=== PATIENT | male | born 1950 | race Caucasian/White ===

== ENCOUNTER 2016-09-16 10:12 | Outpatient (RCR) | payer MEDICARE ==
--- OUTSIDE RECORDS SUMMARY | 2016-07-22 11:28 | XMS REPORT | Continuity of Care Document ---
Author Author [facility] Organization [facility] Address Unknown Phone Unavailable Care Team Providers Care Chief Controller Station Name Role Phone Jennifer Muller PCP Unavailable Source Comments Some departments are not documenting in the electronic medical record. If you do not see the information that you expected, contact Release of Information in the Health Information Management department at [phone] for further assistance in locating additional records.[facility] Active Allergies and Adverse Reactions No Known Allergies Current Medications Prescription Sig. Disp. Refills Start End Date Status Date HYDROcodone/acetaminophen Take 1-2 Tabs by mouth 30 Tab 0 06/19/20 Active (NORCO) 5-325 mg tablet every 4 hours as needed 16 for Pain Indications: PAIN Earliest Fill Date: 06/19/16 hyoscyamine (ANASPAZ; Place 1 Tab under tongue 40 Tab 0 06/19/20 Active NULEV; SYMAX FASTABS; every 4 hours as needed. 16 HYOMAX-FT; ED-SPAZ; Bladder spasms OSCIMIN) 0.125 mg rapid dissolve tablet senna/docusate Take 1 Tab by mouth twice 30 Tab 0 06/19/20 Active (SENOKOT-S) 8.6/50 mg daily. Indications: 16 tablet CONSTIPATION ALPRAZolam (XANAX) 0.5 mg Take 1 Tab by mouth three 60 Tab 0 06/19/20 Active tablet times daily as needed for 16 Anxiety. Indications: ANXIETY polymyxin/bacitracin/kavon/ Small amount to head of 06/19/20 Active HC (CORTISPORIN) 1 % penis/catheter 3-4 times 16 topical ointment daily to reduce irritation. oxybutynin (DITROPAN) 5 Take 1 Tab by mouth three 30 Tab 0 09/02/20 Active mg tablet times daily as needed. 16 Bladder spasms cephalexin (KEFLEX) 500 Take 1 Cap by mouth four 28 Cap 0 06/19/20 06/26/20 mg capsule times daily for 7 days. 16 16 Active Problems Problem Noted Date Bladder cancer (HCC) 06/16/2016 Most Recent Encounters Date Type Specialty Providers Description 06/18/2016 Telephone Oncology Carmen Muller MD Navigation Follow Up 06/18/2016 Surgery General Surgery Carmen Muller MD CYSTOSCOPY WITH TRANSURETHRAL RESECTION LESION BLADDER, LEFT URETERAL STENT PLACEMENT 06/17/2016 [facility] Radiology Carmen Muller MD Encounter Sandra Browning RN Hamblet, Pranav Navarrete MD 06/17/2016 Anesthesia General Surgery Anthony Tabor SRNA Event 06/17/2016 Prep for Jovita Romano MD 06/16/2016 [facility] Radiology Carmen Muller MD Encounter 06/16/2016 [facility] Carmen Muller MD Bladder cancer (HCC) - Encounter 06/19/2016 06/16/2016 Surgery General Surgery Carmen Muller MD CYSTOSCOPY WITH TRANSURETHRAL RESECTION LESION BLADDER, RIGHT RETROGRADE PYELOGRAM 06/15/2016 Anesthesia General Surgery Richie Thomas DO Event 06/10/2016 [facility] Carmen Muller MD Malignant neoplasm of Encounter bladder, unspecified 06/10/2016 Office Visit Urology Carmen Muller MD 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) (Primary Dx) 06/10/2016 Prep for Carmen Grant MD 06/09/2016 Telephone Oncology Carmen Muller MD Navigation Assessment Social History Tobacco Use Types Packs/Day Years Used Date Current Some Day Smoker Cigars Smokeless Tobacco: Never Used Alcohol Use Drinks/Week oz/Week Comments Yes 18 Shots of 10.8 liquor Last Filed Vital Signs Vital Sign Reading Time Taken Blood Pressure 145/74 06/19/2016 12:03 PM CDT Pulse 80 06/19/2016 12:03 PM CDT Temperature 36.5 C (97.7 F) 06/19/2016 12:03 PM CDT Respiratory Rate - - Height 1.829 m (6') 06/16/2016 6:16 AM CDT Weight 90.1 kg (198 lb 10.2 oz) 06/16/2016 6:16 AM CDT Body Mass Index 26.93 06/16/2016 6:16 AM CDT Oxygen Saturation 99% 06/19/2016 12:03 PM CDT Plan of Care Health Maintenance Due Date Last Done Comments Hepatitis C Screening 1950 Physical (Comprehensive) 1955 Exam Pertussis Vaccine 1959 Tetanus Vaccine 1965 Colorectal Cancer 1998 Screening Shingles Vaccine 2008 Prevnar/Pneumovax (#1) 2013 Influenza Vaccine 06/18/2016 Procedures from Last 3 Months Procedure Name Priority Date/Time Associated Diagnosis Comments PROCEDURES-SCAN 06/25/2016 Results for this 7:36 AM CDT procedure are in the results section. CYSTOSCOPY WITH 06/18/2016 Bladder cancer (HCC) TRANSURETHRAL RESECTION 3:05 PM CDT LESION BLADDER, LEFT URETERAL STENT PLACEMENT CONSULT IV THERAPY TEAM Routine 06/17/2016 5:41 PM CDT CYSTOSCOPY WITH 06/16/2016 Bladder cancer (HCC) TRANSURETHRAL RESECTION 8:00 AM CDT LESION BLADDER, RIGHT RETROGRADE PYELOGRAM Results from Last 3 Months PROCEDURES-SCAN (06/25/2016 7:36 AM) Narrative Ordered by an unspecified provider. CBC (06/19/2016 2:55 AM)Only the most recent of 5 results within the time period is included. Component Value Range White Blood Cells 15.1 (H) 4.5-11.0 K/UL RBC 3.47 (L) 4.4-5.5 M/UL Hemoglobin 9.6 (L) 13.5-16.5 GM/DL Hematocrit 30.0 (L) 40-50 % MCV 86.3 80-100 FL MCH 27.6 26-34 PG MCHC 32.0 32.0-36.0 G/DL RDW 13.7 11-15 % Platelet Count 280 150-400 K/UL MPV 8.5 7-11 FL Specimen Blood BASIC METABOLIC PANEL (06/19/2016 2:55 AM)Only the most recent of 4 results within the time period is included. Component Value Range Sodium 141 137-147 MMOL/L Potassium 4.1 3.5-5.1 MMOL/L Chloride 113 (H) 98-110 MMOL/L CO2 21 21-30 MMOL/L Anion Gap 7 3-12 Glucose 142 (H) 70-100 MG/DL Blood Urea Nitrogen 17 7-25 MG/DL Creatinine 1.17 0.4-1.24 MG/DL Calcium 7.6 (L) 8.5-10.6 MG/DL eGFR Non >60Comment: >60 mL/min The eGFR is not validated for use in drug dosing adjustments. Continue to use estimated creatinine clearance per dosing reference text. Please contact the Clinical Pharmacist for questions. eGFR >60Comment: >60 mL/min The eGFR is not validated for use in drug dosing adjustments. Continue to use estimated creatinine clearance per dosing reference text. Please contact the Clinical Pharmacist for questions. Specimen Blood SURGICAL PATHOLOGY (06/18/2016 6:31 PM)Only the most recent of 2 results within the time period is included. Component Value Range PATHOLOGY REPORT [facility] [email or web address] Laci Fox MD, PhD, Director of Anatomic Pathology Department of Pathology and Laboratory Medicine [address] [place] [id number] Surgical Pathology Office: [phone] SURGICAL PATHOLOGY REPORT NAME: MT GRACE SURG PATH #: [id number] MR #: [id number] SPECIMEN CLASS: SR BILLING #: [id number] ALT ID #: LOCATION: DISCHARGED DATE OF PROCEDURE: 06/18/2016 AGE: 66 SEX: M DATE RECEIVED: 06/19/2016 : 1950 TIME RECEIVED: 07:56 PHYSICIAN: CARMEN MULLER MD DATE OF REPORT: 06/23/2016 COPY TO: DATE OF PRINTIN06/23/2016 ################################################## ###################### Final Diagnosis: A. 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 See comment Comment: URINARY BLADDER: Biopsy and Transurethral Resection of Bladder Tumor (TURBT) Procedure (required only for TURBT) TURBT Tumor Type Invasive carcinoma Histologic Type Urothelial (transitional cell) carcinoma with focal squamous differentiation Associated Epithelial Lesions None identified Histologic Grade Urothelial carcinoma High-grade Tumor Configuration Papillary Adequacy of Material for Determining Muscularis Propria Invasion Muscularis propria (detrusor muscle) present Lymph-Vascular Invasion Not identified Microscopic Tumor Extension Tumor invades muscularis propria (detrusor muscle) Additional Pathologic Findings Necrosis Therapy-related changes Cautery artifact Pathologic Staging (pTNM) r(recurrent) pT2, Nx, M-na TNM Descriptors r (recurrent) Primary Tumor (pT) pT2: Tumor invades muscularis propria The pathologic stage assigned here should be regarded as provisional, as it reflects only current pathologic data and does not incorporate full knowledge of the patient's clinical status and/or prior pathology. Attestation: By this signature, I attest that I have personally formulated the final interpretation expressed in this report and that the above diagnosis is based upon my examination of the slides and/or other material indicated in this report. +++Electronically Signed Out By+++ ks06/19/2016 Interpreted by: Ralf Reddy MD, Attending Physician Fei Stubbs M.D. Resident 06/23/2016 ################################################## ###################### Material Received: A: Bladder, transurethral resection History: 66-year-old male with a clinical history of bladder cancer. Gross Description: A. Fixative: Formalin Labeled: "Bladder tumor" Weight: 125 grams Dimensions: 11.2 x 10.3 x 4.4 cm Cassettes [ ]- [Entire specimen, Bottle Selector sections of specimen] (dlk) ks06/19/2016 Fei Stubbs M.D. Resident IR CENTRAL VENOUS CATHETER (06/17/2016 11:36 AM) Impressions IMPRESSION:Successful image guided placement of a right internal jugular vein chest port as described above. Pranav Chang M.D, the attending radiologist, was present for the critic al and castaneda portions of the procedure with a midlevel, resident, and/or fellow participating.Overlapping portions were non castaneda and I was immediately available.I interpret the critical and castaneda portion of this procedure to have been needle access. @TT Approved by Bill Anne M.D. on 06/17/2016 3:25 PM By my electronic signature, I attest that I have personally reviewed the images for this examination and formulated the interpretations and opinions expressed in this report Finalized by Pranav Still M.D. on 06/17/2016 3:31 PM. Dictated by Bill Anne M.D. on 06/17/2016 2:21 PM. Narrative CHEST PORT PLACEMENT WITH ULTRASOUND AND FLUORO GUIDANCE DATE: 06/17/2016 CLINICAL INDICATION: 58-year-old male with diagnosis of bladder cancer presents for placement of a chest port SEARCH ENGINE MARKETING SPECIALIST:Rafael Still MD, Bill Anne MD CATHETER: 8 Kyrgyz single lumen power port PUNCTURE SITE: Right internal jugular vein TECHNIQUE: The risks, benefits, and alternatives to the procedure and sedation were explained, and written informed consent obtained. With patient in the supine position, the patient's right neck and upper chest were prepped and draped in the usual sterile fashion. Ultrasound of the right internal jugular vein was performed demonstrating patency.The skin and subcutaneous tissues overlying the vein were infiltrated with 2% Lidocaine without epinephrine. Under ultrasound guidance, the right internal jugular vein was accessed with a micropuncture needle. Needle entering the vessel was documented and an ultrasound imaged was saved and sent to PACS.A 0.018 wire was advanced through the needle into the vein. The needle was exchanged for a 5 Kyrgyz coaxial dilator. Attention was turned to the creation of a subcutaneous pocket and tunnel.2% Lidocaine with epinephrine were infiltrated on the chest wall along a tract caudal and lateral to the initial venotomy site.An incision was made and a pocket was bluntly dissected. The pocket was copiously irrigated with sterile normal saline.The tunneling tool was passed and the catheter was pulled through the initial venotomy site. The catheter was cut to length and attached to the port reservoir. The introducer of the coaxial catheter was removed and a 0.035" Amplatz wire was passed into the IVC. The micropuncture sheath was exchanged for a peel a way. The catheter was advanced through the sheath and positioned centrally using fluoroscopy.The sheath was removed. The venotomy site was closed withDermabond.The pocket was closed with three interrupted deep sutures with 2-0 Vicryl followed by Dermabond. The patient tolerated the procedure well and remained in stable condition throughout the stay in the angiography suite.The catheter port was flushed, heparinized, and a sterile dressing was applied. FINDINGS: 1. Patent right internal jugular vein by ultrasound.Needle entry documented , and an ultrasound image was saved to PACS. 2. Catheter tip is appropriately placed in the proximal right atrium. Procedure Note Interface, Radiant Results - WedJun 17, 2016 3:34 PM CDT CHEST PORT PLACEMENT WITH ULTRASOUND AND FLUORO GUIDANCE DATE: 06/17/2016 CLINICAL INDICATION: 58-year-old male with diagnosis of bladder cancer presents for placement of a chest port SEARCH ENGINE MARKETING SPECIALIST: Rafael Still MD, Bill Anne MD CATHETER: 8 Kyrgyz single lumen power port PUNCTURE SITE: Right internal jugular vein TECHNIQUE: The risks, benefits, and alternatives to the procedure and sedation were explained, and written informed consent obtained. With patient in the supine position, the patient's right neck and upper chest were prepped and draped in the usual sterile fashion. Ultrasound of the right internal jugular vein was performed demonstrating patency. The skin and subcutaneous tissues overlying the vein were infiltrated with 2% Lidocaine without epinephrine. Under ultrasound guidance, the right internal jugular vein was accessed with a micropuncture needle. Needle entering the vessel was documented and an ultrasound imaged was saved and sent to PACS. A 0.018 wire was advanced through the needle into the vein. The needle was exchanged for a 5 Kyrgyz coaxial dilator. Attention was turned to the creation of a subcutaneous pocket and tunnel. 2% Lidocaine with epinephrine were infiltrated on the chest wall along a tract caudal and lateral to the initial venotomy site. An incision was made and a pocket was bluntly dissected. The pocket was copiously irrigated with sterile normal saline. The tunneling tool was passed and the catheter was pulled through the initial venotomy site. The catheter was cut to length and attached to the port reservoir. The introducer of the coaxial catheter was removed and a 0.035" Amplatz wire was passed into the IVC. The micropuncture sheath was exchanged for a peel a way. The catheter was advanced through the sheath and positioned centrally using fluoroscopy. The sheath was removed. The venotomy site was closed with Dermabond. The pocket was closed with three interrupted deep sutures with 2-0 Vicryl followed by Dermabond. The patient tolerated the procedure well and remained in stable condition throughout the stay in the angiography suite. The catheter port was flushed, heparinized, and a sterile dressing was applied. FINDINGS: 1. Patent right internal jugular vein by ultrasound. Needle entry documented, and an ultrasound image was saved to PACS. 2. Catheter tip is appropriately placed in the proximal right atrium. IMPRESSION IMPRESSION: Successful image guided placement of a right internal jugular vein chest port as described above. Pranav Chang M.D, the attending radiologist, was present for the critical and castaneda portions of the procedure with a midlevel, resident, and/or fellow participating. Overlapping portions were non castaneda and I was immediately available. I interpret the critical and castaneda portion of this procedure to have been needle access. @TT Approved by Bill Anne M.D. on 06/17/2016 3:25 PM By my electronic signature, I attest that I have personally reviewed the images for this examination and formulated the interpretations and opinions expressed in this report Finalized by Pranav Still M.D. on 06/17/2016 3:31 PM. Dictated by Bill Anne M.D. on 06/17/2016 2:21 PM. IR ASPIRATION/DRAIN (06/17/2016 11:36 AM) Impressions 1.Successful placement of left percutaneous nephrostomy tube. Pranav Chang M.D, the attending radiologist, was present for the critical and castaneda portions of the procedure with a midlevel, resident, and/or fellow participating.Overlapping portions were non castaneda and I was immediately available.I interpret the critical and castaneda portion of this procedure to have been needle access. @TT Approved by Bill Anne M.D. on 06/17/2016 2:20 PM By my electronic signature, I attest that I have personally reviewed the images for this examination and formulated the interpretations and opinions expressed in this report Finalized by Pranav Still M.D. on 06/17/2016 2:34 PM. Dictated by Bill Anne M.D. on 06/17/2016 2:16 PM. Narrative 1. Percutaneous Nephrostomy Tube Placement Under Ultrasound and Fluoroscopic Guidance 2. Antegrade Nephrostogram INDICATION:58-year-old male with a history of bladder cancer and left urinary obstruction presents for placement of a left percutaneous nephrostomy DATE OF PROCEDURE:06/17/2016 OPERATING PHYSICIAN:Rafael Still MD, Bill Anne MD MEDICATIONS: Versed 5 mg IV, Fentanyl 50 mcg IV CATHETER: 8 Kyrgyz Nephrostomy Tube FLUOROSCOPY DOSE:22 mGy TECHNIQUE: The risks benefits and alternatives of the procedure as well as conscious sedation were discussed. After obtaining informed consent the patient was prepped and draped in the usual sterile fashion. 2% lidocaine was used as local anesthetic. Under ultrasound guidance, on the left a 22 gauge Chiba needle was introduced into a posterior, lower pole calyx.Urine was aspirated and a small amount of contrast was injected.An 0.018" wire was then passed through the needle into the renal pelvis. The needle was then removed and a 6 Kyrgyz coaxial dilator was placed over the wire. Subsequently, the wire and inner dilator were removed and an 0.035"wire was placed through the dilator. Next, an 8 Kyrgyz percutaneous nephrostomy tube was placed with the cope loop formed within the renal pelvis. The nephrostomy tube was then anchored to the skin utilizing 2-0 Ethilon. Antegrade nephrostogram then performed. The patient tolerated the procedure well and left the angiography suite in stable condition without any immediate postprocedural complications. FINDINGS: 1. There is moderate left-sided hydronephrosis and hydroureter to the level of the distal ureter. There was complete obstruction of the distal ureter. No passage of contrast into the bladder was visualized during the procedure. 2. The left-sided percutaneous nephrostomy tube was placed with the [place] loop formed in the renal pelvis. Procedure Note Interface, Radiant Results - WedJun 17, 2016 2:37 PM CDT 1. Percutaneous Nephrostomy Tube Placement Under Ultrasound and Fluoroscopic Guidance 2. Antegrade Nephrostogram INDICATION: 58-year-old male with a history of bladder cancer and left urinary obstruction presents for placement of a left percutaneous nephrostomy DATE OF PROCEDURE: 06/17/2016 OPERATING PHYSICIAN: Rafael Still MD, Bill Anne MD MEDICATIONS: Versed 5 mg IV, Fentanyl 50 mcg IV CATHETER: 8 Kyrgyz Nephrostomy Tube FLUOROSCOPY DOSE: 22 mGy TECHNIQUE: The risks benefits and alternatives of the procedure as well as conscious sedation were discussed. After obtaining informed consent the patient was prepped and draped in the usual sterile fashion. 2% lidocaine was used as local anesthetic. Under ultrasound guidance, on the left a 22 gauge Chiba needle was introduced into a posterior, lower pole calyx. Urine was aspirated and a small amount of contrast was injected. An 0.018" wire was then passed through the needle into the renal pelvis. The needle was then removed and a 6 Kyrgyz coaxial dilator was placed over the wire. Subsequently, the wire and inner dilator were removed and an 0.035" wire was placed through the dilator. Next, an 8 Kyrgyz percutaneous nephrostomy tube was placed with the cope loop formed within the renal pelvis. The nephrostomy tube was then anchored to the skin utilizing 2-0 Ethilon. Antegrade nephrostogram then performed. The patient tolerated the procedure well and left the angiography suite in stable condition without any immediate postprocedural complications. FINDINGS: 1. There is moderate left-sided hydronephrosis and hydroureter to the level of the distal ureter. There was complete obstruction of the distal ureter. No passage of contrast into the bladder was visualized during the procedure. 2. The left-sided percutaneous nephrostomy tube was placed with the [place] loop formed in the renal pelvis. IMPRESSION 1. Successful placement of left percutaneous nephrostomy tube. I, Pranav Still M.D, the attending radiologist, was present for the critical and castaneda portions of the procedure with a midlevel, resident, and/or fellow participating. Overlapping portions were non castaneda and I was immediately available. I interpret the critical and castaneda portion of this procedure to have been needle access. @TT Approved by Bill Anne M.D. on 06/17/2016 2:20 PM By my electronic signature, I attest that I have personally reviewed the images for this examination and formulated the interpretations and opinions expressed in this report Finalized by Pranav Still M.D. on 06/17/2016 2:34 PM. Dictated by Bill Anne M.D. on 06/17/2016 2:[address] ABD/PELV W CONTRAST (06/16/2016 3:42 PM) Impressions CHEST: 1. Prominent right hilar lymph node concerning for early suma metastatic disease. 2. Tiny subcentimeter left upper lobe pulmonary nodule. Continued attention on follow-up examinations recommended. 3. Trace bilateral pleural effusions with associated atelectasis. ABDOMEN AND PELVIS: 1. Large infiltrating urinary bladder mass consistent with reported history of bladder cancer. 2. Extensive retroperitoneal and pelvic lymphadenopathy as above, consistent with metastatic lymphadenopathy. 3. Left hydronephrosis secondary to distal obstruction from large bladder tumor. Approved by Johnny George M.D. on 06/16/2016 4:43 PM By my electronic signature, I attest that I have personally reviewed the images for this examination and formulated the interpretations and opinions expressed in this report Finalized by Alec Hooper M.D. on 06/16/2016 4:53 PM. Dictated by Johnny George M.D. on 06/16/2016 4:[address] CHEST, ABDOMEN AND PELVIS Clinical Indication:Male, 66 years old. Malignant neoplasm bladder, bladder cancer Technique: Multiple contiguous axial images were obtained through the chest, abdomen and pelvis following the administration of IV contrast material. Post processing coronal and sagittal reconstruction images were made from the axial images. IV contrast: Isovue 370. Bowel contrast:None Comparison: CT abdomen/pelvis 06/03/2016. CHEST FINDINGS: Axilla, Mediastinum and Gloria: Prominent right hilar lymph node measuring 1.1 cm in short axis (series 2, image 27). No axillary or mediastinal adenopathy. Small hiatal hernia. Heart and Great Vessels: Unremarkable. Airway, Lungs and Pleura: Mild bilateral atelectasis with trace bilateral pleural effusions. No pneumothorax. There is a tiny 2 mm left upper lobe pulmonary nodule (series 2, image 29). Chest Wall and Osseous Structures: No destructive osseous lesion. ABDOMEN AND PELVIS FINDINGS: Liver and Biliary system: Liver is normal in size without focal lesion. Portal venous system is patent. No calcified gallstones. Spleen: Unremarkable. Adrenal Glands and Kidneys: There is mild left hydronephrosis with bilateral perinephric fat stranding. Multiple bilateral simple appearing renal cysts. Adrenal glands are unremarkable. Pancreas and Retroperitoneum: Pancreas is unremarkable. There is multiple retroperitoneal enlarged lymph nodes, risk control field representative aortocaval node measures 2.3 x 1.5 cm (2, image 101). Bottle Selector left iliac node measures 2.9 x 1.9 cm (series 2, image 121). Aorta and Major Vessels: Abdominal aorta is normal caliber with moderate mixed plaque formation extending to the bilateral iliac arteries. Bowel, Mesentery and Peritoneal space: Small and large are normal in caliber without evidence of obstruction. Appendix is unremarkable. No discrete mesenteric lymphadenopathy. Mild abdominopelvic ascites. Pelvis: There is a large irregular polypoid mass within the urinary bladder which is ill-defined, though demonstrates bladder wall infiltration. The mass measures approximately 4.7 x 5.6 cm (series 4, image 75). There is an indwelling urinary catheter with scattered intravesicular high attenuation which may represent superimposed blood products. There is marked pelvic lymphadenopathy, risk control field representative left obturator node measures 2.6 x 3.1 cm ( series 2, image 134). Abdominal wall and Osseous Structures: Bilateral fat-containing inguinal hernias. Multiple scattered osseous sclerotic foci, likely representing enostosis. Procedure Note Interface, Radiant Results - Tue Jun 16, 2016 4:[address] CHEST, ABDOMEN AND PELVIS Clinical Indication: Male, 66 years old. Malignant neoplasm bladder, bladder cancer Technique: Multiple contiguous axial images were obtained through the chest, abdomen and pelvis following the administration of IV contrast material. Post processing coronal and sagittal reconstruction images were made from the axial images. IV contrast: Isovue 370. Bowel contrast: None Comparison: CT abdomen/pelvis 06/03/2016. CHEST FINDINGS: Axilla, Mediastinum and Gloria: Prominent right hilar lymph node measuring 1.1 cm in short axis (series 2, image 27). No axillary or mediastinal adenopathy. Small hiatal hernia. Heart and Great Vessels: Unremarkable. Airway, Lungs and Pleura: Mild bilateral atelectasis with trace bilateral pleural effusions. No pneumothorax. There is a tiny 2 mm left upper lobe pulmonary nodule (series 2, image 29). Chest Wall and Osseous Structures: No destructive osseous lesion. ABDOMEN AND PELVIS FINDINGS: Liver and Biliary system: Liver is normal in size without focal lesion. Portal venous system is patent. No calcified gallstones. Spleen: Unremarkable. Adrenal Glands and Kidneys: There is mild left hydronephrosis with bilateral perinephric fat stranding. Multiple bilateral simple appearing renal cysts. Adrenal glands are unremarkable. Pancreas and Retroperitoneum: Pancreas is unremarkable. There is multiple retroperitoneal enlarged lymph nodes, risk control field representative aortocaval node measures 2.3 x 1.5 cm (2, image 101). Bottle Selector left iliac node measures 2.9 x 1.9 cm (series 2, image 121). Aorta and Major Vessels: Abdominal aorta is normal caliber with moderate mixed plaque formation extending to the bilateral iliac arteries. Bowel, Mesentery and Peritoneal space: Small and large are normal in caliber without evidence of obstruction. Appendix is unremarkable. No discrete mesenteric lymphadenopathy. Mild abdominopelvic ascites. Pelvis: There is a large irregular polypoid mass within the urinary bladder which is ill-defined, though demonstrates bladder wall infiltration. The mass measures approximately 4.7 x 5.6 cm (series 4, image 75). There is an indwelling urinary catheter with scattered intravesicular high attenuation which may represent superimposed blood products. There is marked pelvic lymphadenopathy, risk control field representative left obturator node measures 2.6 x 3.1 cm ( series 2, image 134). Abdominal wall and Osseous Structures: Bilateral fat-containing inguinal hernias. Multiple scattered osseous sclerotic foci, likely representing enostosis. IMPRESSION CHEST: 1. Prominent right hilar lymph node concerning for early suma metastatic disease. 2. Tiny subcentimeter left upper lobe pulmonary nodule. Continued attention on follow-up examinations recommended. 3. Trace bilateral pleural effusions with associated atelectasis. ABDOMEN AND PELVIS: 1. Large infiltrating urinary bladder mass consistent with reported history of bladder cancer. 2. Extensive retroperitoneal and pelvic lymphadenopathy as above, consistent with metastatic lymphadenopathy. 3. Left hydronephrosis secondary to distal obstruction from large bladder tumor. Approved by Johnny George M.D. on 06/16/2016 4:43 PM By my electronic signature, I attest that I have personally reviewed the images for this examination and formulated the interpretations and opinions expressed in this report Finalized by Alec Hooper M.D. on 06/16/2016 4:53 PM. Dictated by Johnny George M.D. on 06/16/2016 4:[address] CHEST W CONTRAST (06/16/2016 3:42 PM) Impressions CHEST: 1. Prominent right hilar lymph node concerning for early suma metastatic disease. 2. Tiny subcentimeter left upper lobe pulmonary nodule. Continued attention on follow-up examinations recommended. 3. Trace bilateral pleural effusions with associated atelectasis. ABDOMEN AND PELVIS: 1. Large infiltrating urinary bladder mass consistent with reported history of bladder cancer. 2. Extensive retroperitoneal and pelvic lymphadenopathy as above, consistent with metastatic lymphadenopathy. 3. Left hydronephrosis secondary to distal obstruction from large bladder tumor. Approved by Johnny George M.D. on 06/16/2016 4:43 PM By my electronic signature, I attest that I have personally reviewed the images for this examination and formulated the interpretations and opinions expressed in this report Finalized by Alec Hooper M.D. on 06/16/2016 4:53 PM. Dictated by Johnny George M.D. on 06/16/2016 4:[address] CHEST, ABDOMEN AND PELVIS Clinical Indication:Male, 66 years old. Malignant neoplasm bladder, bladder cancer Technique: Multiple contiguous axial images were obtained through the chest, abdomen and pelvis following the administration of IV contrast material. Post processing coronal and sagittal reconstruction images were made from the axial images. IV contrast: Isovue 370. Bowel contrast:None Comparison: CT abdomen/pelvis 06/03/2016. CHEST FINDINGS: Axilla, Mediastinum and Gloria: Prominent right hilar lymph node measuring 1.1 cm in short axis (series 2, image 27). No axillary or mediastinal adenopathy. Small hiatal hernia. Heart and Great Vessels: Unremarkable. Airway, Lungs and Pleura: Mild bilateral atelectasis with trace bilateral pleural effusions. No pneumothorax. There is a tiny 2 mm left upper lobe pulmonary nodule (series 2, image 29). Chest Wall and Osseous Structures: No destructive osseous lesion. ABDOMEN AND PELVIS FINDINGS: Liver and Biliary system: Liver is normal in size without focal lesion. Portal venous system is patent. No calcified gallstones. Spleen: Unremarkable. Adrenal Glands and Kidneys: There is mild left hydronephrosis with bilateral perinephric fat stranding. Multiple bilateral simple appearing renal cysts. Adrenal glands are unremarkable. Pancreas and Retroperitoneum: Pancreas is unremarkable. There is multiple retroperitoneal enlarged lymph nodes, risk control field representative aortocaval node measures 2.3 x 1.5 cm (2, image 101). Bottle Selector left iliac node measures 2.9 x 1.9 cm (series 2, image 121). Aorta and Major Vessels: Abdominal aorta is normal caliber with moderate mixed plaque formation extending to the bilateral iliac arteries. Bowel, Mesentery and Peritoneal space: Small and large are normal in caliber without evidence of obstruction. Appendix is unremarkable. No discrete mesenteric lymphadenopathy. Mild abdominopelvic ascites. Pelvis: There is a large irregular polypoid mass within the urinary bladder which is ill-defined, though demonstrates bladder wall infiltration. The mass measures approximately 4.7 x 5.6 cm (series 4, image 75). There is an indwelling urinary catheter with scattered intravesicular high attenuation which may represent superimposed blood products. There is marked pelvic lymphadenopathy, risk control field representative left obturator node measures 2.6 x 3.1 cm ( series 2, image 134). Abdominal wall and Osseous Structures: Bilateral fat-containing inguinal hernias. Multiple scattered osseous sclerotic foci, likely representing enostosis. Procedure Note Interface, Radiant Results - Tue Jun 16, 2016 4:[address] CHEST, ABDOMEN AND PELVIS Clinical Indication: Male, 66 years old. Malignant neoplasm bladder, bladder cancer Technique: Multiple contiguous axial images were obtained through the chest, abdomen and pelvis following the administration of IV contrast material. Post processing coronal and sagittal reconstruction images were made from the axial images. IV contrast: Isovue 370. Bowel contrast: None Comparison: CT abdomen/pelvis 06/03/2016. CHEST FINDINGS: Axilla, Mediastinum and Gloria: Prominent right hilar lymph node measuring 1.1 cm in short axis (series 2, image 27). No axillary or mediastinal adenopathy. Small hiatal hernia. Heart and Great Vessels: Unremarkable. Airway, Lungs and Pleura: Mild bilateral atelectasis with trace bilateral pleural effusions. No pneumothorax. There is a tiny 2 mm left upper lobe pulmonary nodule (series 2, image 29). Chest Wall and Osseous Structures: No destructive osseous lesion. ABDOMEN AND PELVIS FINDINGS: Liver and Biliary system: Liver is normal in size without focal lesion. Portal venous system is patent. No calcified gallstones. Spleen: Unremarkable. Adrenal Glands and Kidneys: There is mild left hydronephrosis with bilateral perinephric fat stranding. Multiple bilateral simple appearing renal cysts. Adrenal glands are unremarkable. Pancreas and Retroperitoneum: Pancreas is unremarkable. There is multiple retroperitoneal enlarged lymph nodes, risk control field representative aortocaval node measures 2.3 x 1.5 cm (2, image 101). Bottle Selector left iliac node measures 2.9 x 1.9 cm (series 2, image 121). Aorta and Major Vessels: Abdominal aorta is normal caliber with moderate mixed plaque formation extending to the bilateral iliac arteries. Bowel, Mesentery and Peritoneal space: Small and large are normal in caliber without evidence of obstruction. Appendix is unremarkable. No discrete mesenteric lymphadenopathy. Mild abdominopelvic ascites. Pelvis: There is a large irregular polypoid mass within the urinary bladder which is ill-defined, though demonstrates bladder wall infiltration. The mass measures approximately 4.7 x 5.6 cm (series 4, image 75). There is an indwelling urinary catheter with scattered intravesicular high attenuation which may represent superimposed blood products. There is marked pelvic lymphadenopathy, risk control field representative left obturator node measures 2.6 x 3.1 cm ( series 2, image 134). Abdominal wall and Osseous Structures: Bilateral fat-containing inguinal hernias. Multiple scattered osseous sclerotic foci, likely representing enostosis. IMPRESSION CHEST: 1. Prominent right hilar lymph node concerning for early suma metastatic disease. 2. Tiny subcentimeter left upper lobe pulmonary nodule. Continued attention on follow-up examinations recommended. 3. Trace bilateral pleural effusions with associated atelectasis. ABDOMEN AND PELVIS: 1. Large infiltrating urinary bladder mass consistent with reported history of bladder cancer. 2. Extensive retroperitoneal and pelvic lymphadenopathy as above, consistent with metastatic lymphadenopathy. 3. Left hydronephrosis secondary to distal obstruction from large bladder tumor. Approved by Johnny George M.D. on 06/16/2016 4:43 PM By my electronic signature, I attest that I have personally reviewed the images for this examination and formulated the interpretations and opinions expressed in this report Finalized by Alec Hooper M.D. on 06/16/2016 4:53 PM. Dictated by Johnny George M.D. on 06/16/2016 4:23 PM. COMPREHENSIVE METABOLIC PANEL (06/10/2016 4:55 PM) Component Value Range Sodium 140 137-147 MMOL/L Potassium 3.7 3.5-5.1 MMOL/L Chloride 106 98-110 MMOL/L Glucose 103 (H) 70-100 MG/DL Blood Urea Nitrogen 20 7-25 MG/DL Creatinine 1.71 (H) 0.4-1.24 MG/DL Calcium 8.7 8.5-10.6 MG/DL Total Protein 6.9 6.0-8.0 G/DL Total Bilirubin 0.2 (L) 0.3-1.2 MG/DL Albumin 3.4 (L) 3.5-5.0 G/DL Alk Phosphatase 61 25-110 U/L AST (SGOT) 21 7-40 U/L CO2 26 21-30 MMOL/L ALT (SGPT) 18 7-56 U/L Anion Gap 8 3-12 eGFR Non 40 (L)Comment: >60 mL/min The eGFR is not validated for use in drug dosing adjustments. Continue to use estimated creatinine clearance per dosing reference text. Please contact the Clinical Pharmacist for questions. eGFR 48 (L)Comment: >60 mL/min The eGFR is not validated for use in drug dosing adjustments. Continue to use estimated creatinine clearance per dosing reference text. Please contact the Clinical Pharmacist for questions. Specimen Blood
[2016-07-22 12:15] LABS: BASOPHILS % (AUTO) 0 % (0-10); EOSINOPHILS % (AUTO) 0 % (0-10); LYMPHOCYTES # (AUTO) 1.7 X 10^3 (1.0-4.0); LYMPHOCYTES % (AUTO) 23 % (12-44); MEAN CORPUSCULAR HEMOGLOBIN 28 PG (25-34); MEAN CORPUSCULAR HGB CONC 33 G/DL (32-36); MEAN CORPUSCULAR VOLUME 86 FL (80-99); MEAN PLATELET VOLUME 8.2 FL (7.4-10.4); MONOCYTES # (AUTO) 1.3 X 10^3 (0.0-1.0); MONOCYTES % (AUTO) 18 % (0-12); NEUTROPHILS # (AUTO) 4.4 X 10^3 (1.8-7.8); NEUTROPHILS % (AUTO) 59 % (42-75); PLATELET COUNT 329 10^3/uL (130-400); RED BLOOD COUNT 3.45 10^6/uL (4.35-5.85); RED CELL DISTRIBUTION WIDTH 13.6 % (10.0-14.5); WHITE BLOOD COUNT 7.5 10^3/uL (4.3-11.0)
[2016-07-22 12:44] LABS: CALCIUM 9.3 MG/DL (8.5-10.1); CREATININE SERUM 1.46 MG/DL (0.60-1.30); POTASSIUM 4.6 MMOL/L (3.6-5.0)
[2016-07-29 10:06] LABS: BASOPHILS # (AUTO) 0.1 10^3/uL (0.0-0.1); BASOPHILS % (AUTO) 1 % (0-10); EOSINOPHILS # (AUTO) 0.2 10^3/uL (0.0-0.3); EOSINOPHILS % (AUTO) 2 % (0-10); LYMPHOCYTES % (AUTO) 16 % (12-44); MEAN CORPUSCULAR HEMOGLOBIN 28 PG (25-34); MEAN CORPUSCULAR HGB CONC 32 G/DL (32-36); MEAN CORPUSCULAR VOLUME 87 FL (80-99); MEAN PLATELET VOLUME 8.7 FL (7.4-10.4); MONOCYTES % (AUTO) 16 % (0-12); NEUTROPHILS # (AUTO) 8.1 X 10^3 (1.8-7.8); NEUTROPHILS % (AUTO) 66 % (42-75); PLATELET COUNT 766 10^3/uL (130-400); RED BLOOD COUNT 2.99 10^6/uL (4.35-5.85); RED CELL DISTRIBUTION WIDTH 13.9 % (10.0-14.5); WHITE BLOOD COUNT 12.3 10^3/uL (4.3-11.0)
[2016-07-29 10:23] LABS: ALBUMIN 3.2 G/DL (3.2-4.5); BILIRUBIN,TOTAL 0.2 MG/DL (0.1-1.0); CALCIUM 8.8 MG/DL (8.5-10.1); CREATININE SERUM 1.4 MG/DL (0.60-1.30); MAGNESIUM 2.1 MG/DL (1.8-2.4); POTASSIUM 4.1 MMOL/L (3.6-5.0); TOTAL PROTEIN 6.6 G/DL (6.4-8.2)
[2016-08-05 13:40] LABS: BASOPHILS % (AUTO) 0 % (0-10); EOSINOPHILS # (AUTO) 0.1 10^3/uL (0.0-0.3); EOSINOPHILS % (AUTO) 1 % (0-10); LYMPHOCYTES # (AUTO) 2.2 X 10^3 (1.0-4.0); LYMPHOCYTES % (AUTO) 20 % (12-44); MEAN CORPUSCULAR HEMOGLOBIN 28 PG (25-34); MEAN CORPUSCULAR HGB CONC 33 G/DL (32-36); MEAN CORPUSCULAR VOLUME 86 FL (80-99); MEAN PLATELET VOLUME 8.2 FL (7.4-10.4); MONOCYTES # (AUTO) 1.6 X 10^3 (0.0-1.0); MONOCYTES % (AUTO) 15 % (0-12); NEUTROPHILS # (AUTO) 7.1 X 10^3 (1.8-7.8); NEUTROPHILS % (AUTO) 65 % (42-75); PLATELET COUNT 384 10^3/uL (130-400); RED BLOOD COUNT 2.89 10^6/uL (4.35-5.85); RED CELL DISTRIBUTION WIDTH 14.2 % (10.0-14.5)
[2016-08-05 14:13] LABS: CREATININE SERUM 1.47 MG/DL (0.60-1.30); POTASSIUM 4.1 MMOL/L (3.6-5.0)
[2016-08-12 13:25] LABS: BASOPHILS % (AUTO) 0 % (0-10); EOSINOPHILS # (AUTO) 0.1 10^3/uL (0.0-0.3); EOSINOPHILS % (AUTO) 1 % (0-10); LYMPHOCYTES # (AUTO) 2.3 X 10^3 (1.0-4.0); LYMPHOCYTES % (AUTO) 32 % (12-44); MEAN CORPUSCULAR HEMOGLOBIN 28 PG (25-34); MEAN CORPUSCULAR HGB CONC 33 G/DL (32-36); MEAN CORPUSCULAR VOLUME 85 FL (80-99); MEAN PLATELET VOLUME 8.4 FL (7.4-10.4); MONOCYTES # (AUTO) 0.8 X 10^3 (0.0-1.0); MONOCYTES % (AUTO) 11 % (0-12); NEUTROPHILS # (AUTO) 3.9 X 10^3 (1.8-7.8); NEUTROPHILS % (AUTO) 56 % (42-75); PLATELET COUNT 151 10^3/uL (130-400); RED BLOOD COUNT 2.72 10^6/uL (4.35-5.85); RED CELL DISTRIBUTION WIDTH 14.3 % (10.0-14.5); WHITE BLOOD COUNT 6.9 10^3/uL (4.3-11.0)
[2016-08-12 13:50] LABS: CALCIUM 8.7 MG/DL (8.5-10.1); CREATININE SERUM 1.34 MG/DL (0.60-1.30); POTASSIUM 3.7 MMOL/L (3.6-5.0)
[2016-08-19 11:13] LABS: BASOPHILS % (AUTO) 0 % (0-10); EOSINOPHILS # (AUTO) 0.1 10^3/uL (0.0-0.3); EOSINOPHILS % (AUTO) 1 % (0-10); LYMPHOCYTES % (AUTO) 23 % (12-44); MEAN CORPUSCULAR HEMOGLOBIN 28 PG (25-34); MEAN CORPUSCULAR HGB CONC 32 G/DL (32-36); MEAN CORPUSCULAR VOLUME 87 FL (80-99); MONOCYTES # (AUTO) 1.2 X 10^3 (0.0-1.0); MONOCYTES % (AUTO) 14 % (0-12); NEUTROPHILS # (AUTO) 5.3 X 10^3 (1.8-7.8); NEUTROPHILS % (AUTO) 61 % (42-75); PLATELET COUNT 210 10^3/uL (130-400); RED BLOOD COUNT 2.84 10^6/uL (4.35-5.85); RED CELL DISTRIBUTION WIDTH 15.7 % (10.0-14.5); WHITE BLOOD COUNT 8.6 10^3/uL (4.3-11.0)
[2016-08-19 11:58] LABS: CALCIUM 8.7 MG/DL (8.5-10.1); CREATININE SERUM 1.43 MG/DL (0.60-1.30); POTASSIUM 4.6 MMOL/L (3.6-5.0)
[2016-08-26 13:23] LABS: BASOPHILS % (AUTO) 0 % (0-10); EOSINOPHILS # (AUTO) 0.3 10^3/uL (0.0-0.3); EOSINOPHILS % (AUTO) 3 % (0-10); LYMPHOCYTES # (AUTO) 2.3 X 10^3 (1.0-4.0); LYMPHOCYTES % (AUTO) 20 % (12-44); MEAN CORPUSCULAR HEMOGLOBIN 28 PG (25-34); MEAN CORPUSCULAR HGB CONC 32 G/DL (32-36); MEAN CORPUSCULAR VOLUME 89 FL (80-99); MEAN PLATELET VOLUME 8.9 FL (7.4-10.4); MONOCYTES % (AUTO) 18 % (0-12); NEUTROPHILS # (AUTO) 6.5 X 10^3 (1.8-7.8); NEUTROPHILS % (AUTO) 58 % (42-75); PLATELET COUNT 598 10^3/uL (130-400); RED BLOOD COUNT 2.63 10^6/uL (4.35-5.85); RED CELL DISTRIBUTION WIDTH 18.2 % (10.0-14.5); WHITE BLOOD COUNT 11.1 10^3/uL (4.3-11.0)
[2016-08-26 13:50] LABS: ALBUMIN 3.3 G/DL (3.2-4.5); BILIRUBIN,TOTAL 0.2 MG/DL (0.1-1.0); CALCIUM 8.4 MG/DL (8.5-10.1); CREATININE SERUM 1.28 MG/DL (0.60-1.30); MAGNESIUM 1.8 MG/DL (1.8-2.4); POTASSIUM 3.8 MMOL/L (3.6-5.0); TOTAL PROTEIN 6.5 G/DL (6.4-8.2)
[2016-08-26 16:14] LABS: %SAT TOTAL IRON BINDING CAPIC 8 % (15-50); TIBC 272 ug/dL (280-380)
[2016-08-27 07:19] LABS: UIBC 249 ug/dL (55-450)
[2016-08-27 07:20] LABS: FERRITIN 504 ng/mL (25-300)
[2016-09-02 13:31] LABS: BASOPHILS % (AUTO) 0 % (0-10); EOSINOPHILS # (AUTO) 0.1 10^3/uL (0.0-0.3); EOSINOPHILS % (AUTO) 1 % (0-10); LYMPHOCYTES # (AUTO) 1.8 X 10^3 (1.0-4.0); LYMPHOCYTES % (AUTO) 22 % (12-44); MEAN CORPUSCULAR HEMOGLOBIN 28 PG (25-34); MEAN CORPUSCULAR HGB CONC 31 G/DL (32-36); MEAN CORPUSCULAR VOLUME 89 FL (80-99); MEAN PLATELET VOLUME 8.4 FL (7.4-10.4); MONOCYTES # (AUTO) 1.3 X 10^3 (0.0-1.0); MONOCYTES % (AUTO) 15 % (0-12); NEUTROPHILS # (AUTO) 4.9 X 10^3 (1.8-7.8); NEUTROPHILS % (AUTO) 61 % (42-75); PLATELET COUNT 318 10^3/uL (130-400); RED BLOOD COUNT 2.54 10^6/uL (4.35-5.85); RED CELL DISTRIBUTION WIDTH 17.9 % (10.0-14.5); WHITE BLOOD COUNT 8.1 10^3/uL (4.3-11.0)
[2016-09-02 14:04] LABS: CALCIUM 8.6 MG/DL (8.5-10.1); CREATININE SERUM 1.38 MG/DL (0.60-1.30); POTASSIUM 4.1 MMOL/L (3.6-5.0)
[2016-09-09 13:33] LABS: BASOPHILS % (AUTO) 0 % (0-10); EOSINOPHILS # (AUTO) 0.1 10^3/uL (0.0-0.3); EOSINOPHILS % (AUTO) 1 % (0-10); LYMPHOCYTES # (AUTO) 1.7 X 10^3 (1.0-4.0); LYMPHOCYTES % (AUTO) 36 % (12-44); MEAN CORPUSCULAR HEMOGLOBIN 28 PG (25-34); MEAN CORPUSCULAR HGB CONC 32 G/DL (32-36); MEAN CORPUSCULAR VOLUME 88 FL (80-99); MONOCYTES # (AUTO) 0.6 X 10^3 (0.0-1.0); MONOCYTES % (AUTO) 14 % (0-12); NEUTROPHILS # (AUTO) 2.2 X 10^3 (1.8-7.8); NEUTROPHILS % (AUTO) 48 % (42-75); PLATELET COUNT 129 10^3/uL (130-400); RED BLOOD COUNT 2.87 10^6/uL (4.35-5.85); RED CELL DISTRIBUTION WIDTH 17.8 % (10.0-14.5); WHITE BLOOD COUNT 4.6 10^3/uL (4.3-11.0)
[2016-09-09 14:11] LABS: CREATININE SERUM 1.28 MG/DL (0.60-1.30); POTASSIUM 4.2 MMOL/L (3.6-5.0)
[~2016-09-16] VITALS: Ht 179.1 cm; Wt 84.8 kg
[~2016-09-16 10:12] MED LIST: ACETAMINOPHEN 500 MG TAB (TYLENOL) CANCER CTR ONE; CIPR-225 PO; CISPLATIN IV SCH; DOCU-143 PO; FAMOTIDINE 20MG/2ML IV (CANCER CTR) IV SCH; FOSAPREPITANT 150 MG/NS 150 MG IVPB (CANCER CTR) IV PRN; GEMCITABINE HCL IV SCH; HYDR-3820 PO; LEVO500T2 PO; LORazepam INJ 2 MG/ML VIAL CANCER CTR IV SCH; MANNITOL IV SCH; NS (IVPB) CANCER CENTER 250 ML ONE; NS IV 1000 ML (CANCER CTR) IV SCH; ONDANSETRON 16 MG, DEXAMETHASONE 10 MG/NS 50 ML IVPB IV SCH; PHEN-640 PO; TAMS0.4C98 PO; [UNRECOGNIZED DRUG - OTHER] IV SCH; [UNRECOGNIZED DRUG - OTHER] IV SCH; [UNRECOGNIZED DRUG - OTHER] IV SCH; [UNRECOGNIZED DRUG - OTHER] IV SCH; diphenhydrAMINE 25 MG TAB (BENADRYL) CANCER CENTER PO ONE
[2016-09-16 10:41] LABS: BASOPHILS % (AUTO) 0 % (0-10); EOSINOPHILS % (AUTO) 1 % (0-10); LYMPHOCYTES % (AUTO) 25 % (12-44); MEAN CORPUSCULAR HGB CONC 32 G/DL (32-36); MEAN CORPUSCULAR VOLUME 90 FL (80-99); MEAN PLATELET VOLUME 9.1 FL (7.4-10.4); MONOCYTES % (AUTO) 16 % (0-12); NEUTROPHILS # (AUTO) 2.6 X 10^3 (1.8-7.8); NEUTROPHILS % (AUTO) 58 % (42-75); PLATELET COUNT 133 10^3/uL (130-400); RED BLOOD COUNT 2.74 10^6/uL (4.35-5.85); RED CELL DISTRIBUTION WIDTH 18.6 % (10.0-14.5); WHITE BLOOD COUNT 4.5 10^3/uL (4.3-11.0)
[2016-09-16 10:42] LABS: EOSINOPHILS # (AUTO) 0.1 10^3/uL (0.0-0.3); LYMPHOCYTES # (AUTO) 1.1 X 10^3 (1.0-4.0); MEAN CORPUSCULAR HEMOGLOBIN 28 PG (25-34); MONOCYTES # (AUTO) 0.7 X 10^3 (0.0-1.0)
[2016-09-16 11:20] LABS: CALCIUM 8.8 MG/DL (8.5-10.1); CREATININE SERUM 1.5 MG/DL (0.60-1.30); POTASSIUM 4.9 MMOL/L (3.6-5.0)
[2016-10-21] MEDS ORDERED: ACET325T49 PO (19:58)
[2016-10-21] MEDS ORDERED: CEPH-507 PO (20:04)
[2016-10-21] MEDS ORDERED: CIPR500T4 PO (20:04)
[2016-10-21] MEDS ORDERED: MAGN800O PO (20:04)
[2016-10-21] MEDS ORDERED: SENN-40 PO (20:04)
[2016-10-21] MEDS ORDERED: SIME80TA16 PO (20:09)
[2016-10-21] MEDS ORDERED: OXYC-473 PO (20:09)
[2016-10-21] MEDS ORDERED: POLY17PO6 PO (20:09)
[2016-10-21] MEDS ORDERED: ALPR0.5T PO (20:09)
[2016-10-27] MEDS ORDERED: CEPH250C PO (15:55)
[2016-10-27] MEDS ORDERED: CIPR500T4 PO (15:55)
[2016-10-27] MEDS ORDERED: Oxycodone Hcl PO (15:55)
[2016-10-27] MEDS ORDERED: POTA10TA6 PO (15:55)
[2016-10-28] MEDS ORDERED: ENOX40DI13 SQ (15:48)
== END 2016-10-20 | disposition home or self-care (01) ==
LOC: ONC 10:12
PROVIDERS: ATTEND Internal Medicine Hematology & Oncology
DX: Z51.11 Encounter for antineoplastic chemotherapy (principal); C67.8 Malignant neoplasm of overlapping sites of bladder; C77.5 Secondary and unspecified malignant neoplasm of intrapelvic lymph nodes; D64.9 Anemia, unspecified; F17.210 Nicotine dependence, cigarettes, uncomplicated
CPT/HCPCS: 36415; 36430; 36591; 80048; 80053; 82274; 82728; 83540; 83615; 83735; 85025; 86850; 86900; 86901; 86920; 96367; 96375; 96413; 96417; 99213

== ENCOUNTER 2016-10-21 10:16 | Inpatient (IN) | payer MEDICARE ==
[~2016-10-21] VITALS: Ht 182.9 cm; Wt 87.6 kg
[~2016-10-21 10:16] MED LIST changes: -ACETAMINOPHEN 500 MG TAB (TYLENOL) CANCER CTR ONE; -CISPLATIN IV SCH; -FAMOTIDINE 20MG/2ML IV (CANCER CTR) IV SCH; -FOSAPREPITANT 150 MG/NS 150 MG IVPB (CANCER CTR) IV PRN; -GEMCITABINE HCL IV SCH; -LORazepam INJ 2 MG/ML VIAL CANCER CTR IV SCH; -MANNITOL IV SCH; -NS (IVPB) CANCER CENTER 250 ML ONE; -NS IV 1000 ML (CANCER CTR) IV SCH; -ONDANSETRON 16 MG, DEXAMETHASONE 10 MG/NS 50 ML IVPB IV SCH; -[UNRECOGNIZED DRUG - OTHER] IV SCH; -[UNRECOGNIZED DRUG - OTHER] IV SCH; -[UNRECOGNIZED DRUG - OTHER] IV SCH; -[UNRECOGNIZED DRUG - OTHER] IV SCH; -diphenhydrAMINE 25 MG TAB (BENADRYL) CANCER CENTER PO ONE
--- OUTSIDE RECORDS SUMMARY | 2016-10-21 13:18 | XMS REPORT | Continuity of Care Document ---
Author Author [facility] Organization [facility] Address Unknown Phone Unavailable Care Team Providers Care Manager Of School Name Role Phone Jennifer Muller PCP Unavailable Source Comments Some departments are not documenting in the electronic medical record. If you do not see the information that you expected, contact Release of Information in the Health Information Management department at [phone] for further assistance in locating additional records.[facility] Active Allergies and Adverse Reactions No Known Allergies Current Medications Prescription Sig. Disp. Refills Start End Date Status Date ALPRAZolam (XANAX) 0.5 mg Take 0.5 mg by mouth Active tablet three times daily as needed for Anxiety. enoxaparin (LOVENOX) 40 Inject 0.4 mL under the 30 Syringe 0 10/16/20 Active mg injection syringe skin daily. 16 cephalexin (KEFLEX) 500 Take 1 Cap by mouth twice 0 10/21/19 Active mg capsule daily. Take until 17 11/03/2016 oxyCODONE (ROXICODONE, Take 1-2 Tabs by mouth 40 Tab 0 10/21/19 Active OXY-IR) 5 mg tablet every 4 hours as needed 17 for Pain Earliest Fill Date: 10/21/16 acetaminophen (TYLENOL) Take 2 Tabs by mouth 0 10/21/19 Active 325 mg tablet every 6 hours. Take every 17 6 hours for two days and then as needed there after. simethicone (MYLICON) 80 Chew 1 Tab by mouth every 30 Tab 0 10/21/19 Active mg chew tablet 6 hours as needed. 17 senna/docusate Take 1 Tab by mouth twice 0 10/21/19 Active (SENOKOT-S) 8.6/50 mg daily. Indications: 17 tablet CONSTIPATION polyethylene glycol 3350 Take 1 Packet by mouth 12 Each 10/21/19 Active (MIRALAX) 17 g packet daily. Indications: 17 CONSTIPATION milk of magnesia (CONC) Take 10 mL by mouth 360 mL 10/21/19 Active 2,400 mg/10 mL oral daily. Indications: 17 suspension CONSTIPATION ciprofloxacin HCl (CIPRO) Take 1 Tab by mouth twice 0 11/03/19 Active 500 mg tablet daily for 3 days. Begin 17 17 taking on 11/03/2016 for 3 days. HYDROcodone/acetaminophen Take 1-2 Tabs by mouth 30 Tab 0 06/19/20 09/23/20 Discontin (NORCO) 5-325 mg tablet every 4 hours as needed 16 16 ued for Pain Indications: PAIN Earliest Fill Date: 06/19/16 hyoscyamine (ANASPAZ; Place 1 Tab under tongue 40 Tab 0 06/19/2005/06 Discontin NULEV; SYMAX FASTABS; every 4 hours as needed. 16 16 ued HYOMAX-FT; ED-SPAZ; Bladder spasms OSCIMIN) 0.125 mg rapid dissolve tablet senna/docusate Take 1 Tab by mouth twice 30 Tab 0 06/19/20 09/23/20 Discontin (SENOKOT-S) 8.6/50 mg daily. Indications: 16 16 ued tablet CONSTIPATION ALPRAZolam (XANAX) 0.5 mg Take 1 Tab by mouth three 60 Tab 0 06/19/20 09/23/20 Discontin tablet times daily as needed for 16 16 ued Anxiety. Indications: ANXIETY polymyxin/bacitracin/kavon/ Small amount to head of 06/19/20 09/23/20 Discontin HC (CORTISPORIN) 1 % penis/catheter 3-4 times 16 16 ued topical ointment daily to reduce irritation. oxybutynin (DITROPAN) 5 Take 1 Tab by mouth three 30 Tab 0 06/19/20 09/23/20 Discontin mg tablet times daily as needed. 16 16 ued Bladder spasms ALPRAZolam (XANAX) 0.5 mg Take 1 Tab by mouth three 60 Tab 0 09/23/20 09/23/20 Discontin tablet times daily as needed for 16 16 ued Anxiety. Indications: ANXIETY HYDROcodone/acetaminophen Take 1-2 Tabs by mouth 30 Tab 0 09/23/20 10/21/19 Suspended (NORCO) 5/325 mg tablet every 4 hours as needed 16 17 for Pain Indications: PAIN docusate (COLACE) 100 mg Take 100 mg by mouth 10/21/19 Suspended capsule twice daily. 17 Active Problems Problem Noted Date Bladder cancer (HCC) 06/16/2016 Most Recent Encounters Date Type Specialty Providers Description 10/16/2016 Refill Urology Nicole Avalos MD 10/13/2016 Hospital Carmen Muller MD Bladder cancer (HCC) - Encounter 10/21/2016 10/13/2016 Anesthesia Starla Garcia MD Event 10/13/2016 Surgery Carmen Muller MD CYSTOPROSTATECTOMY WITH ILEAL CONDUIT, BILATERAL PELVIC LYMPH NODE DISSECTION 09/30/2016 Cancer Oncology Carmen Muller MD Conference 09/23/2016 PAC Office Anesthesiology Carmen Muller MD Preop cardiovascular exam Visit (Primary Dx); Malignant neoplasm of urinary bladder, unspecified site (HCC); Encounter for blood typing 09/23/2016 Office Visit Urology Carmen Muller MD Malignant neoplasm of lateral wall of urinary bladder (HCC) (Primary Dx) 09/23/2016 Anesthesia Elizabeth Kidd APRN-BDR Event 09/23/2016 Prep for Case Urology Carmen Muller MD Social History Tobacco Use Types Packs/Day Years Used Date Former Smoker Cigars Quit: 05/24/2016 Smokeless Tobacco: Former Quit: User 10/18/1999 Comments: previously smoked ~1 nehemiah cigar/day at times Alcohol Use Drinks/Week oz/Week Comments Yes 18 Shots of 10.8 quit 05/24/2016; liquor Last Filed Vital Signs Vital Sign Reading Time Taken Blood Pressure 136/79 10/21/2016 7:26 AM PIT LABORER Pulse 92 10/21/2016 7:26 AM PIT LABORER Temperature 36.8 C (98.3 F) 10/21/2016 7:26 AM PIT LABORER Respiratory Rate - - Height 1.829 m (6') 10/13/2016 6:45 AM PIT LABORER Weight 85.7 kg (188 lb 15 oz) 10/13/2016 6:45 AM PIT LABORER Body Mass Index 25.62 10/13/2016 6:45 AM PIT LABORER Oxygen Saturation 97% 10/21/2016 7:26 AM PIT LABORER Plan of Care Date Type Specialty Providers Description 11/04/2016 Appointment Urology Carmen Muller MD [address] [place] [address] [phone] (Fax) Health Maintenance Due Date Last Done Comments Hepatitis C Screening 1950 Physical (Comprehensive) 1955 Exam Pertussis Vaccine 1959 Tetanus Vaccine 1965 Colorectal Cancer 1998 Screening Shingles Vaccine 2008 Prevnar/Pneumovax (#1) 2013 Influenza Vaccine 06/18/2016 Procedures from Last 3 Months Procedure Name Priority Date/Time Associated Diagnosis Comments ANESTHESIA ARTERIAL LINE Routine 10/13/2016 Results for this INSERTION 8:57 AM PIT LABORER procedure are in the results section. CYSTOPROSTATECTOMY WITH 10/13/2016 Malignant neoplasm of ILEAL CONDUIT, BILATERAL 8:00 AM PIT LABORER overlapping sites of PELVIC LYMPH NODE bladder (HCC) DISSECTION Special Needs 10/07- REQUESTED START TIME CHANGED FROM 0745 TO 0800 (WEDNESDAY) Yamilet CARBAJAL RN ([id number])09/18 1- PER STANDARD WORKFLOW POLICY, CASE LENGTH ADDED TO COMMENT SECTION ON GENERAL INFORMATIO N PAGE Yamilet CARBAJAL RN ([id number]) Results from Last 3 Months CREATININE-FLUID (10/20/2016 12:00 PM) Component Value Range Creatinine,Fluid 1.26 MG/DL Specimen Fluid - Brad Drainage CBC AND DIFF (10/19/2016 2:35 AM) Component Value Range White Blood Cells 22.1 (H) 4.5-11.0 K/UL RBC 3.01 (L) 4.4-5.5 M/UL Hemoglobin 8.6 (L) 13.5-16.5 GM/DL Hematocrit 26.5 (L) 40-50 % MCV 87.8 80-100 FL MCH 28.5 26-34 PG MCHC 32.4 32.0-36.0 G/DL RDW 18.7 (H) 11-15 % Platelet Count 314 150-400 K/UL MPV 8.3 7-11 FL Neutrophils 79 (H) 41-77 % Lymphocytes 8 (L) 24-44 % Monocytes 8 4-12 % Eosinophils 5 0-5 % Basophils 0 0-2 % Absolute Neutrophil Count 17.40 (H) 1.8-7.0 K/UL Absolute Lymph Count 1.80 1.0-4.8 K/UL Absolute Monocyte Count 1.80 (H) 0-0.80 K/UL Absolute Eosinophil Count 1.00 (H) 0-0.45 K/UL Absolute Basophil Count 0.00 0-0.20 K/UL PHOSPHORUS (10/18/2016 3:28 AM)Only the most recent of 2 results within the time period is included. Component Value Range Phosphorus 2.7 2.0-4.0 MG/DL Specimen Blood MAGNESIUM (10/18/2016 3:28 AM)Only the most recent of 2 results within the time period is included. Component Value Range Magnesium 1.9 1.6-2.6 mg/dL Specimen Blood CBC (10/16/2016 5:30 AM)Only the most recent of 6 results within the time period is included. Component Value Range White Blood Cells 19.3 (H) 4.5-11.0 K/UL RBC 3.02 (L) 4.4-5.5 M/UL Hemoglobin 8.7 (L) 13.5-16.5 GM/DL Hematocrit 26.2 (L) 40-50 % MCV 86.7 80-100 FL MCH 28.8 26-34 PG MCHC 33.3 32.0-36.0 G/DL RDW 19.2 (H) 11-15 % Platelet Count 220 150-400 K/UL MPV 8.1 7-11 FL Specimen Blood BASIC METABOLIC PANEL (10/15/2016 1:22 AM)Only the most recent of 5 results within the time period is included. Component Value Range Sodium 138 137-147 MMOL/L Potassium 4.2 3.5-5.1 MMOL/L Chloride 111 (H) 98-110 MMOL/L CO2 22 21-30 MMOL/L Anion Gap 5 3-12 Glucose 86 70-100 MG/DL Blood Urea Nitrogen 20 7-25 MG/DL Creatinine 1.23 0.4-1.24 MG/DL Calcium 8.2 (L) 8.5-10.6 MG/DL eGFR Non 59 (L)Comment: >60 mL/min The eGFR is not [...] the Clinical Pharmacist for questions. Specimen Blood DELIVER & TRANSFUSE RED BLOOD CELLS (INTRAOP ONLY) (10/13/2016 12:17 PM) Specimen Blood HEMOGLOBIN & HEMATOCRIT, BG (10/13/2016 11:33 AM) Component Value Range Hemoglobin BG 7.9 (L) 13.5-16.5 GM/DL Hematocrit BG 24.5 (L) 40-50 % Specimen Blood BLOOD GASES, ARTERIAL (10/13/2016 11:33 AM)Only the most recent of 2 results within the time period is included. Component Value Range pH-Arterial 7.37 7.35-7.45 pCO2-Arterial 38 35-45 MMHG pO2-Arterial 136 (H) 80-100 MMHG Base Deficit-Arterial 3.3 MMOL/L O2 Sat-Arterial 99.5 (H) 95-99 % Rjffucxwctx-EZD-Mpc 21.6 21-28 MMOL/L Specimen Blood, arterial - Blood SURGICAL PATHOLOGY (10/13/2016 9:21 AM) Component Value Range PATHOLOGY REPORT [facility] [email or web address] Moraima Snyder MD, PhD, Director of Anatomic Pathology Department of Pathology and Laboratory Medicine [address] [place] [id number] Surgical Pathology Office: [phone] SURGICAL PATHOLOGY REPORT NAME: MT GRACE SURG PATH #: [id number] MR #: [id number] SPECIMEN CLASS: SR BILLING #: [id number] ALT ID #: LOCATION: [id number] DATE OF PROCEDURE: 10/13/2016 AGE: 66 SEX: M DATE RECEIVED: 10/13/2016 : 1950 TIME RECEIVED: 09: PHYSICIAN: CARMEN MULLER MD DATE OF REPORT: 10/16/2016 COPY TO: DATE OF PRINTIN10/16/2016 ################################################## ###################### Final Diagnosis: A. Ureter, "left distal ureter", biopsy: There is no evidence of malignancy. B. Ureter, "right distal ureter", biopsy: There is no evidence of malignancy. C. Bladder and prostate, "bladder with prostate", cystoprostatectomy: Bladder: Invasive high grade urothelial carcinoma with focal superficial involvement of the muscularis propria and extensive treatment effect. See checklist. Prostate: Prostatic adenocarcinoma, Stockton grade 3 + 3=6 (grade group 1) focally present in the right lobe. See checklist. D. Lymph node (1), "left internal iliac lymph node", biopsy: Extensive necrosis (2.9 cm), consistent with treatment effect. Negative for viable tumor in one lymph node (0/1). E. Seminal vesicle and adipose tissue, "left posterior margin", biopsy: Negative for malignancy. F. Lymph nodes (2), "left external iliac lymph nodes", biopsy: Fibrosis consistent with treatment effect in one lymph node. There is no evidence of malignancy in two lymph nodes. (0/2) G. Lymph nodes (2), "left internal iliac lymph nodes", biopsy: Fibrosis and necrosis consistent with treatment effect in one lymph node, There is no evidence of malignancy in two lymph nodes. (0/2) H. Lymph nodes (3), "left common lymph nodes", biopsy: Fibrosis consistent with treatment effect in one lymph node. There is no evidence of malignancy in three lymph nodes. (0/3) I. Lymph nodes (12), "left obturator lymph nodes", dissection: There is no evidence of malignancy in twelve lymph nodes. (0/12) J. Lymph nodes (8), "right external iliac lymph nodes", dissection: There is no evidence of malignancy in eight lymph nodes. (0/8) K. Lymph node (1), "right internal iliac lymph nodes", biopsy: There is no evidence of malignancy in one lymph node. (0/1) L. Lymph nodes (2), "right common lymph nodes", biopsy: There is no evidence of malignancy in two lymph nodes. (0/2) M. Lymph nodes (32), "right obturator lymph nodes", dissection: There is no evidence of malignancy in thirty-two lymph nodes. (0/32) Comment: URINARY BLADDER: Cystectomy, Partial, Total, or Radical; Anterior Exenteration Specimen Bladder Procedure Radical cystoprostatectomy Tumor Site Other (specify): Right and left posterolateral wall Tumor Size Greatest dimension: 2.6 cm Additional dimensions: 2.0 x 1.2 cm Tumor Type Invasive high grade urothelial carcinoma Histologic Type Urothelial (transitional cell) carcinoma Associated Epithelial Lesions None identified Histologic Grade Urothelial carcinoma High-grade Tumor Configuration Solid/nodule Flat Ulcerated Microscopic Tumor Extension Tumor focally invades superficial muscularis propria Tumor invades superficial muscularis propria (inner half) Margins Margins uninvolved by carcinoma Lymph-Vascular Invasion Suspicious Pathologic Staging (pTNM) rypT2a ypN0 Mn/a TNM Descriptors r (recurrent) y (posttreatment) Primary Tumor (pT) pT2: Tumor invades muscularis propria (detrusor muscle) pT2a: Tumor invades superficial muscularis propria (inner half) Regional Lymph Nodes (pN) pN0: No lymph node metastasis Number of Lymph Nodes Examined Specify: 63 Number of Lymph Nodes Involved (any size) Specify: 0 Number of lymph nodes with treatment effect: 4 Distant Metastasis (pM) Not applicable Additional Pathologic Findings Adenocarcinoma of prostate (See checklist for carcinoma of prostate) Inflammation/regenerative changes Therapy-related changes PROSTATE GLAND: Radical Prostatectomy Procedure Other (specify): Cystoprostatectomy Prostate Size Weight: 48 g Size: 4.6 x 3.3 x 3.2 cm Lymph Node Sampling Pelvic lymph node dissection performed Histologic Type Adenocarcinoma (acinar, not otherwise specified) Histologic Grade Stockton Pattern Primary Pattern Grade 3 Secondary Pattern Grade 3 Tertiary Pattern Not applicable Total Stockton Score: 3 + 3=6 (Grade group 1) Tumor Quantitation Proportion (percentage) of prostate involved by tumor: <5% Extraprostatic Extension Not identified Seminal Vesicle Invasion (invasion of muscular wall required) Not identified Margins Margins uninvolved by invasive carcinoma Treatment Effect on Carcinoma Not identified Lymph-Vascular Invasion Not identified Perineural Invasion Not identified Pathologic Staging (pTNM) pT2a N0 Mn/a Primary Tumor (pT) pT2a: Unilateral, involving one-half of 1 side or less Regional Lymph Nodes (pN) pN0: No regional lymph node metastasis Number of Lymph Nodes Examined Specify: 63 Number of Lymph Nodes Involved Specify: 0 Distant Metastasis (pM) Not applicable The pathologic stage assigned here should be regarded as provisional, as it reflects only current pathologic data and does not incorporate full knowledge of the patient's clinical status and/or prior pathology. Pursuant to the [employer] Program at the [facility] Pathology Department, selected prostate slides from this case have been concurrently reviewed by the following pathologist: Dr. Quintana, who agrees with the final diagnosis. Attestation: By this signature, I attest that I have personally formulated the final interpretation expressed in this report and that the above diagnosis is based upon my examination of the slides and/or other material indicated in this report. +++Electronically Signed Out By+++ ksw/10/13/2016 Interpreted by: Herman Pandey D.O. Resident 10/16/2016 ################################################## ###################### Material Received: A: left distal ureter B: right distal ureter C: Bladder w/ prostate D: left internal iliac lymph node for frozen E: left posterior margin F: left external iliac lymph nodes G: left internal iliac lymph nodes H: left common lymph nodes I: left obturator lymph nodes J: right external iliac lymph nodes K: right internal iliac lymph nodes L: right common lymph nodes M: right obturator lymph nodes History: 66-year-old male with a history of malignant neoplasm of the bladder. Gross Description: A. Received fresh, labeled with the patient's name and "left distal ureter for frozen" is an unoriented, annular, west-pink portion of mucosa measuring 0.5 x 0.4 x 0.3 cm. The specimen is entirely submitted for frozen consultation with remnant being placed in cassette A1FS. ([facility]) B. Received fresh, labeled with the patient's name and "right distal ureter for frozen" is an unoriented, annular, west portion of mucosa measuring 0.5 x 0.3 x 0.3 cm. The specimen is entirely submitted for frozen consultation with a remnant being placed in cassette B1FS. ([facility]) C. Fixative: Fresh. Labeled: "Bladder and prostate". Bladder measurement 7.6 x 7.4 x 4.2 cm. Right ureter: 2.3 cm in length by 0.8 cm in diameter. Left ureter: 2.6 cm in length by 0.7 cm in diameter. External surface of bladder: West-pink and smooth. Bladder tumor measurement: 2.6 x 2.0 x 1.2 cm red-pink to yellow-white friable mass; there is also an irregular, red-pink eroded area approximately 40% of the posterior bladder wall (3.6 x 3.4 cm) and extends into the trigone. Bladder tumor location: Right and left posterior-lateral wall. Bladder tumor depth of invasion: 1.0 cm. Bladder tumor: Does not grossly appear to involve the right or left ureter. Bladder tumor: 3.1 cm from the left ureteral orifice and 1.6 cm from the right ureteral orifice. Uninvolved bladder mucosa: West-pink and edematous. The external surface deep to the eroded area is inked green. Deep to mass is inked black. Prostate weight: 48 grams. Prostate measurement: 4.6 x 3.3 x 3.2 cm. Right seminal vesicle measurement: 4.4 x 1.3 x 0.6 cm. Right vas deferens measurement: 9.2 cm in length and 0.3 cm in diameter. Left seminal vesicle measurement: 1.6 x 1.3 x 0.6 cm. Left vas deferens measurement: 4.4 cm in length and 0.3 cm in diameter. External surface of prostate: West-pink and smooth. Prostate cut surface: West-white and nodular with nodules ranging from 0.4 x 0.4 x 0.3 cm to 0.7 x 0.6 x 0.3 cm. Located on the right posterior lobe is an irregular brown-black area which measures 0.9 x 0.8 x 0.5 cm. The right lobe of the prostate is inked black and the left lobe is inked blue. Scientific Linguist sections of the specimen are submitted as follows: C1 Right and left ureteral margin (Right ureter is inked black). C2 Right and left distal urethral margin (serially sectioned). C3 Right and left seminal vesicle and vas deferens margins. C4-C5 Scientific Linguist sections from right posterior prostate. C6-C7 Scientific Linguist sections from left posterior prostate. C8 Anterior bladder wall. C9 Left lateral bladder wall. C10 Right lateral bladder wall. C11 Bladder dome. C12 Posterior bladder wall (green ink-external surface of bladder). C13 Bladder trigone. C14 Right ureter to bladder mucosa. C15 Left ureter to bladder mucosa. C69-H73Opymg blocked out and entirely submitted. [id number] of the eroded area. (ads) C23-C37: Remainder of posterior prostate and additional sections of anterior prostate D. Received fresh, labeled with the patient's name and "left internal iliac lymph node for frozen" is an irregular, west-pink possible lymph node measuring 2.9 x 2.1 x 2.1 cm. The possible lymph node is serially sectioned to reveal a west-yellow chalky cut surface. The specimen is entirely submitted for frozen and permanent sections as follows: D1FS Frozen section remnant. D2 Remaining possible lymph node. (gkc) E. Received in formalin, labeled with the patient's name and "left posterior margin for permanent" is a 3.8 x 3.0 x 2.5 cm fragment of unoriented west-yellow to west-pink fibroadipose tissue. The specimen is inked black and serially sectioned. The specimen is submitted entirely in cassettes E1-E8. (sca) F. Received in formalin, labeled with the patient's name and "left external iliac lymph nodes" is a 5.0 x 3.5 x 2.1 cm aggregate of west-yellow to west-pink fibroadipose tissue. The specimen is palpated and reveals two possible lymph nodes measuring 1.5-2.0 cm in greatest dimension. The specimen submitted as follows: F1 One possible lymph node. F2 One possible lymph node. F3-F5 Remainder of fibroadipose tissue. (sca) G. Received in formalin labeled with the patient's name and "left internal iliac lymph nodes" is a 4.8 x 4.5 x 1.2 cm aggregate of yellow-west, lobulated adipose tissue. The specimen is palpated to reveal five possible lymph nodes ranging from 0.3 x 0.3 x 0.3 cm to 2.0 x 1.1 x 1.0 cm. The entire specimen is submitted as follows: G1-G2 Largest possible lymph node, bisected. G3-G4 Two possible whole lymph nodes in each cassette. (sld) H. Received in formalin labeled with the patient's name and "left common lymph nodes" are five possible lymph nodes ranging from 0.3 x 0.3 x 0.3 cm to 0.9 x 0.6 x 0.3 cm. The entire specimen is submitted as follows: H1 Largest possible lymph node. H2-H3 Two possible whole lymph nodes in each cassette. (sld) I. Received in formalin labeled with the patient's name and "left obturator lymph node" is a 5.1 x 5.0 x 1.5 cm yellow-west, lobulated portion of adipose tissue. The specimen is palpated to reveal eight possible whole lymph nodes ranging from 0.4 x 0.3 x 0.3 cm to 2.3 x 1.0 x 0.6 cm. The entire specimen is submitted as follows: I1-I2 One possible whole lymph node in each cassette. I3-I4 Three possible lymph nodes in each cassette. I5-I8 Fibroadipose tissue with possible lymph nodes. (sld) J. Received in formalin labeled with the patient's name and "right external iliac lymph nodes" is an 8.0 x 4.7 x 1.3 cm aggregate of yellow-west, lobulated adipose tissue. The specimen is palpated to reveal eight possible lymph nodes ranging from 0.3 x 0.3 x 0.3 cm to 2.3 x 1.3 x 0.6 cm. The entire specimen is submitted as follows: J1 Largest possible lymph node, bisected. J2 Four possible whole lymph nodes. J3 Three possible whole lymph nodes. J4-J8 Fibroadipose tissue with possible whole lymph nodes. (sld) K. Received in formalin labeled with the patient's name and "right internal iliac lymph nodes" are three possible whole lymph nodes measuring 0.7 x 0.3 x 0.3 cm, 1.5 x 1.0 x 0.3 cm, and 1.7 x 0.8 x 0.4 cm. The entire specimen is submitted as follows: K1 Two possible whole lymph nodes. K2 Largest possible whole lymph node. (sld) L. Received in formalin labeled with the patient's name and "right common lymph nodes" are two possible whole lymph nodes measuring 1.2 x 1.0 x 0.4 cm and 2.5 x 1.8 x 0.7 cm. The entire specimen is submitted as follows: L1-L2 Largest possible lymph node, bisected. L3 One possible whole lymph node. (sld) M. Received in formalin labeled with the patient's name and "right obturator lymph nodes" is a 7.5 x 5.0 x 1.5 cm aggregate of yellow-west, lobulated adipose tissue. The specimen is palpated to reveal eighteen possible lymph nodes ranging from 0.1 x 0.1 x 0.1 cm to 2.3 x 1.0 x 0.6 cm. The entire specimen is submitted as follows: M1-M4 Four possible whole lymph nodes in each cassette. M5-M6 One possible whole lymph node in each cassette. M7-M9 Fibroadipose tissue with possible lymph nodes. (sld) as/10/13/2016 Cuauhtemoc Garcia D.O. Resident Intraoperative Consultation: A1FS, ureter, "left distal ureter for frozen", biopsy: Negative for malignancy. B1FS, ureter, "right distal ureter for frozen", biopsy: Negative for malignancy. D1FS, lymph node, "left internal iliac lymph node for frozen", excision: Necrosis- no viable tumor present on retention representative section. Ramya Tomlinson M.D. ANESTHESIA ARTERIAL LINE INSERTION (10/13/2016 8:57 AM) CHARLINE Todd 10/13/20168:57 AM Anesthesia Procedure: Arterial Line Placement A-LINE INSERTION Date/Time: 10/13/2016 8:20 AM Patient location: OR Indications: hemodynamic monitoring Staff Anesthesiologist: ANNALEE WATERS Performed by: FRANCINE DWYER Preprocedure checklist performed: 2 patient identifiers, risks & benefits discussed, patient evaluated, timeout performed, consent obtained, patient being monitored and sterile drape Sterile technique: - Proper hand washing - Cap, mask - Sterile gloves - Skin prep for antisepsis Arterial Line Procedure Patient sedated: yes (see MAR) Sedation type: general; Artery prepped with chlorhexidine; skin prep agent completely dried prior to procedure. Location: radial artery Technique: palpation Needle gauge: 20 G Number of attempts: 2 Procedure Outcome Catheter secured with adhesive dressing applied Events: no complications noted during insertion and skin intact, warm, and dry Observation: pt tolerated well ANESTHESIA PERIPHERAL NERVE BLOCK (10/13/2016 8:03 AM) Narrative Starla Garcia MD 10/13/20168:03 AM Anesthesia Procedure: Peripheral Nerve Block PERIPHERAL NERVE BLOCK Date/Time: 10/13/2016 7:50 AM Patient location: pre-op Reason for block: at surgeon's request, post-op pain management and procedure for pain Staff Anesthesiologist: DARIN MOORE Performed by: STARLA GARCIA Preprocedure checklist performed: 2 patient identifiers, risks & benefits discussed, patient evaluated, timeout performed, consent obtained and patient being monitored Sterile technique: - Proper hand washing - Cap, mask - Sterile gloves - Skin prep for antisepsis Peripheral Nerve Block Procedure Patient position: supine Prep: ChloraPrep Monitoring: BP, EKG and continuous pulse ox Block type: TAPs Laterality: bilateral Injection technique: single-shot Procedures: ultrasound guided Local infiltration: lidocaine Strength: 1%; Dose: 5 mL Needle/cathether: Needle type: Tuohy Needle gauge: 18 G; Needle length: 4 in Needle location: ultrasound guidance Procedure Outcome Injection assessment: negative aspiration for heme, no paresthesia on injection, incremental injection and local visualized surrounding nerve on ultrasound Observations: comfortable throughout block, patient sedated but conversant throughout block and patient tolerated the procedure well with no immediate complications Refer to nursing documentation for vitals and monitoring data during procedure. TYPE & CROSSMATCH (10/13/2016 6:35 AM) Component Value Range Units Ordered 4 Crossmatch Expires 10/16/2016 Record Check FOUND ABO/RH(D) O POS Antibody Screen NEG Electronic Crossmatch YES Unit Number [id number] Blood Component Type RBC,ADSOL,LEUKO REDUCED Unit Division 0 Status OF Unit TRANSFUSED Transfusion Status OK TO TRANSFUSE Crossmatch Result COMPATIBLE,ELECTRONIC Unit Number [id number] Blood Component Type RBC,ADSOL,LEUKO REDUCED Unit Division 0 Status OF Unit REL FROM ALLOC Transfusion Status OK TO TRANSFUSE Crossmatch Result COMPATIBLE,ELECTRONIC Specimen Blood TYPE & SCREEN (NOT CROSSMATCH ELIGIBLE) (09/23/2016 4:57 PM) Component Value Range ABO/RH(D) O POS Antibody Screen NEG Blood Component Type RED CELL GROUP Specimen Blood, venous - Blood NM PET/CT EXTERNAL IMAGING (09/15/2016) Narrative This order has been auto finalized and does not contain a result.
[2016-10-21 14:00] VITALS: BP 135/74
--- NOTE | 2016-10-21 14:00 | ST Cognitive Linguistic Eval ---
Speech Evaluation-General Medical Diagnosis Bladder Cancer Onset Date: Oct 21, 2016 Therapy Diagnosis Therapy Diagnosis: Questionable Cognitive Impairment Referral Referring Physician: Dr. Antonio Mccauley Reason for Referral: Evaluation/Treatment Cognitive Screen Speech PLF-Current Status Prior Level of Function The patient denied cognitive, speech, or language deficits prior to admission. Subjective The patient was recently admitted to [facility] [place] [facility] following treatment for bladder cancer. The patient greeted the clinician appropriately and agreed to participate in a cognitive screen on this date. Language Eval: Auditory Comprehends Simple Yes/No Ques: Functional Indent/Objects Multiple Fox: Functional Ident/Pics in Multiple Fox: Functional Follows 1-Step Commands: Functional Follows Complex Directions: Functional Follows General Conversations: Functional Language Eval: Verbal Language Completes Spontaneous Greeting: Functional Produces Auto, Serial Info: Functional Imitates Simple Words/Phrases: Functional Word Finding: Functional Requests Basic Needs: Functional States Basic Personal Info: Functional Expresses Complex Ideas: Functional Cognitive Patient Orientation The patient is alert and oriented x3. Objective Cognitive Domain Attention: WNL Memory: WNL Problem Solving: Functional Executive Functions: WNL Objective Impression The patient demonstrated cognitive linguistic skills within normal limits for completion of ADL's. Communication/Social Cognition Comprehension: 6 Expression: 6 Social Interaction: 5 Problem Solvin Memory: 6 Speech Patient Assess Expression of Ideas/Wants: Expression (4) Understanding [place]al Content: Understands (4) Brief Interview-Mental Status: Yes Repetition of Three Words: Three (3) Temporal Orientation: Year: Correct (3) Temporal Orientation: Month: Accurate within 5 days(2) Temporal Orientation: Day: Correct (1) Recall : Wear: Yes, no cue required (2) Recall : Color: Yes, no cue required (2) Recall : Bed: Yes, no cue required (2) Speech-Plan Treatment Plan Speech Therapy Treatment Plan: Discontinue ST Rehab Potential: Good Safety Risks/Education Teaching Recipient: Patient Teaching Methods: Discussion Response to Teaching: Verbalize Understanding Education Topics Provided: Plan of Care Time Speech Therapy Time In: 13:20 Speech Therapy Time Out: 13:35 Total Billed Time: 15 Billed Treatment Time 1, LAZARUS ALMARAZNJJAMES ST Oct 21, 2016 14:00
--- NOTE | 2016-10-21 15:36 | Physical Therapy Evaluation ---
PT Evaluation-General Medical Diagnosis Admission Date Oct 21, 2016 at 13:05 Medical Diagnosis: Bladder Cancer Onset Date: Oct 21, 2016 Therapy Diagnosis Therapy Diagnosis: weakness, abn gait Height/Weight Height (Feet): 6 Height (Inches): 0.00 Weight (Pounds): 199 Weight (Ounces): 1.0 Precautions Precautions/Isolations: Standard Precautions Weight Bear Status Weight Bearing Restriction: Weight Bearing/Tolerated Referral Physician: Garrick Reason for Referral: Evaluation/Treatment Medical History Additional Medical History kidney stones, anxiety; fear of needles Current History Recent diagnosis of bladder cancer; post tumor debulking with TURPD; cystoprostectomy. Reviewed History: Yes Social History Home: Apartment Current Living Status: Alone Entry Into Home: Stairs With Railing PT Steps Into Home: 18 Prior/Core FIM Prior Level of Function Functional [place] Measure 0=Not Assessed/NA 4=Minimal Assistance 1=Total Assistance 5=Supervision or Setup 2=Maximal Assistance 6=Modified [place] 3=Moderate Assistance 7=Complete [place] Bed Mobility: 7 Transfers (B,C,W/C) (FIM): 7 Gait: 7 active in community; drives, works. PT Daily Note-Current Subjective Pt reports his left knee is weak and is fearful of falling. Reports being " worn out" today. "I wont be able to do much, I'm worn out.". Pain Numeric Pain Scale: 0-No Pain Location: No Pain Reported Mental Status Patient Orientation: Person, Place, Time, Situation Attachments: Scott Catheter Transfers Functional [place] Measure 0=Not Assessed/NA 4=Minimal Assistance 1=Total Assistance 5=Supervision or Setup 2=Maximal Assistance 6=Modified [place] 3=Moderate Assistance 7=Complete IndependenceIRFPAI Quality Coding Scale 6 Independent with activity with or without an assistive device 5 Patient requires set up or clean up by helper. Patient completes activity by themselves 4 Supervision or touching assist (CGA). [place] provide cues , steadying assist 3 The helper provides less than half the effort to complete the activity 2 The helper provides more than half the effort to complete the activity 1 Dependent. The helper does all the effort to complete an activity 7 Patient refused to complete or attempt activity 9 The patient did not perform the activity before the current illness or injury 88 Not attempted due to Medical conditions or safety concerns Transfers (B, C, W/C) (FIM): 4 Scootin Rollin Roll Left to Right (QC): 4 Supine to/from Sit: 4 Sit to/from Stand: 4 Bed to/from Chair: 4 Sit to Lying (QC): 4 Lying-Sitting/Side of Bed(QC): 4 Sit to Stand (QC): 4 Chair/Mhj-ge-Kklbt Xfer(QC): 4 Car Transfer (QC): 4 (assist to get legs out of car and skilled cues for sequencing. ) In general, pt needs min assist with all transfers, assist to lift left leg into bed and light assist to transfer to stand with skilled cues for sequencing and hand placement. LE ROM B is WNL Right LE strength is grossly 4/5. Left LE strength is grossly 4/5 except quads which are 2+/5. Coordination and reflexes are functional and intact B LE's . Gait Training Does the Patient Walk?: Yes Gait (FIM): 2 Distance (FIM): 8=597-78 ft Distance: 125 ft Walk 10 feet (QC): 4 (min assist ) Walk 50 ft with 2 Turns(QC): 4 Walk 150 ft (QC): 88 (unable to ambulate 150 ft safely) Walk 10ft-uneven surface(QC): 4 (outdoor ambulating to enter building from his car) Gait Level of Assist: 4 Gait Assistive Device: FWW Pt is cautious with gait but no noted LOB this visit. Wheelchair Training Wheel 50 ft with 2 turns (QC): 9 Wheel 150 ft (QC): 9 Stair Training Stair Training: Handrails/: uses walker Stairs (FIM): 1 #of Steps: 1 1 Step (curb) (QC): 3 4 Steps (QC): 88 12 Steps (QC): 88 Stairs: Pattern: Step to up/down curb step with FWW with cues for sequencing and close CGA Balance Balance Sitting Static: Good Balance Sitting Dynamic: Fair Balance-Standing Static: Fair Balance Standing Dynamic: Fair Picking up an Object (QC): 88 (abdomen too sore to attempt to bend over ) Treatments Treatment consisted of co treatment with OT due to patient need for 2 skilled interventions to focus on self care as well as functional dynamic balance and safety. OT addressed self care/ADL"s and PT worked on core strength and dynamic balance activities while performing OT tasks. Pt is anxious at times and needs the direction of 2 skilled clinicians to address his needs. Pt did ambulate 125 ft x 2 with close CGA and encouragement/cues for safety and correct use of FWW. Worked on sit to stand transfers with correct sequencing as well. Assessment Current Status: Good Progress Pt presents with weakness specifically in the left LE that impairs functional transfers and gait as well as safety with ADL's; dynamic balance is impaired as well. This patient will benefit from skilled PT intervention to address functional strength and mobility to allow him to return home and care for himself. He was indep at [facility], but feel he will be at a mod indep level at discharge. This patient does demonstrate a good rehab potential. PT Short Term Goals Short Term Goals Time Frame: Oct 28, 2016 Transfers (B,C,W/C) (FIM): 5 Gait (FIM): 5 Distance (FIM): 3=150 ft Gait Assistive Device: FWW PT Fpc Goals Fpc Goals PT Fpc Goals Time Frame: Nov 06, 2016 Transfers (B,C,W/C) (FIM): 6 Sit to Lying (QC): 6 Lying-Sitting on Side/Bed(QC): 6 Sit to Stand (QC): 6 Roll Left to Right (QC): 6 Chair/Acx-wk-Wxkcg Xfer(QC): 6 Car Transfer (QC): 6 Does the Patient Walk: Yes Gait (FIM): 6 Gait distance (FIM): 3=150 ft Distance: >150 ft Walk 10 feet (QC): 6 Walk 10ft-Uneven Surface(QC): 6 Walk 50ft with 2 Turns (QC): 6 Walk 150 ft (QC): 6 Gait Level of Assist: 6 Gait Assistive Device: Cane Single Point Does the Pt use WC or Scooter?: No Stairs (FIM): 6 # of Steps: 12 1 Step (curb) (QC): 6 4 Steps (QC): 6 12 Steps (QC): 6 Stairs Level Of Assist: 6 Picking up an Object (QC): 5 All LTG's are set to allow pt to return home at a mod indep level and able to care for himself. PT Plan Problem List Problem List: Activity Tolerance, Functional Strength, Safety, Balance, Gait, Transfer, Bed Mobility Treatment/Plan Treatment Plan: Continue Plan of Care Treatment Plan: Bed Mobility, Education, Functional Activity Yimi, Functional Strength, Group Therapy, Gait, Safety, Therapeutic Exercise, Transfers Treatment Duration: Nov 06, 2016 # of days/week 6 Visits Per Week: 10-15 Minutes/Day (M-F): 60-90 Minutes/Day (Sat/[place]): prn Pt/Family Agrees w/Plan: Yes Safety Risks/Education Patient Education: Transfer Techniques Teaching Recipient: Patient Teaching Methods: Demonstration, Discussion Response to Teaching: Reinforcement Needed Time/GCodes Time In: 1225 Time Out: 1315 (out 1240 to 1250 for OT eval;then 1400 to 1445) Total Billed Treatment Time: 85 Total Billed Treatment PT eval [id number]; Co treat with OT [id number] and 1794-2067. EVMO 15 FA 70 (5 units) JAZMIN NARAYAN PT Oct 21, 2016 15:36
[2016-10-21] MEDS: ENOXAPARIN 40 MG/0.4 ML (LOVENOX) SYR SC SCH (16:00)
--- NOTE | 2016-10-21 16:19 | Occupational Therapy Eval ---
OT Evaluation-General/PLF Medical Diagnosis Admission Date Oct 21, 2016 at 13:05 Medical Diagnosis: Bladder Cancer Onset Date: Oct 21, 2016 Therapy Diagnosis Therapy Diagnosis: weakness, decreased ADL skills Height/Weight Height (Feet): 6 Height (Inches): 0.00 Weight (Pounds): 199 Weight (Ounces): 1.0 Precautions Precautions/Isolations: Standard Precautions Weight Bear Status Weight Bearing Restriction: Weight Bearing/Tolerated Referral Physician: Garrick Referral Reason: Activity Tolerance, Self Care, Evaluation/Treatment, Strengthening/ROM Medical History Additional Medical History recent post tumor debulking with TURPD, cystoprostectomy, steel removed from left eye. 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 Pt. had recent bladder surgery at and transferred to acute rehab for further treatment to increase overall strength. DME/Equipment: Tub/Shower DME/Equipment Comments Pt.has lift chair, and a cane. Drive Self: Yes OT Current Status Subjective Pt. does not report pain during treatment, but does report being afraid of being in pain. Appearance Pt. is in van after transport from . OT and PT assist pt. out of van and to room in rehab setting. Please see following evaluation. Mental Status/Objective Patient Orientation: Person, Place Current Hand Dominance: Right Upper Extremity ROM WFL Upper Extremity Coordination intact Upper Extremity Strength Pt. demonstrates 3+/5 right UE and 2+/5 in left UE. States, "I'm weak all over. " ADL-Treatment Functional [place] Measure 0=Not Assessed/NA 4=Minimal Assistance 1=Total Assistance 5=Supervision or Setup 2=Maximal Assistance 6=Modified [place] 3=Moderate Assistance 7=Complete IndependenceIRFPAI Quality Coding Scale 6 Independent with activity with or without an assistive device 5 Patient requires set up or clean up by helper. Patient completes activity by themselves 4 Supervision or touching assist (CGA). [place] provide cues , steadying assist 3 The helper provides less than half the effort to complete the activity 2 The helper provides more than half the effort to complete the activity 1 Dependent. The helper does all the effort to complete an activity 7 Patient refused to complete or attempt activity 9 The patient did not perform the activity before the current illness or injury 88 Not attempted due to Medical conditions or safety concerns Lower Body Dressing (FIM): 2 (Pt. is unable to reach his feet to doff or don socks or shoes.) On/Off Footwear (QC): 2 Transfers (B, C, W/C) (FIM): 4 (Pt. requires CGA for mobility and balance.) Other Treatments Pt. came to hospital before lunch. States multiple times, "I can't do much today, I'm too tired." OT and PT co-treated due to pt's fatigue level, and need for skilled care. PT assess dynamic standing balance and endurance while OT assessed ADLs. Pt. declines bathing/ dressing, but does agree to practice LE dressing. Ambulated in [place] and oriented to surroundings, including rehab gym. Pt. reports fear during ambulation and constantly asks for someone to be on both sides of him. Pt. is also educated on ordering food for self in room, but seems anxious about this, and states, "someone else can do this for me." Pt. encouraged to do for self. Note that pt's catheter has leaked a little onto shirt. Pt. is encouraged to change clothing, and is given options of pajamas or hospital gown. Pt. declines all attempts and states, "I will just leak more." "I will do it later." All needs are met in room. Son comes and is with pt. at end of treatment. Education OT Patient Education: Correct positioning, Energy conservation, Modified ADL techniques, Progress toward Goal/Update tx plan, Purpose of tx/functional activities, Reviewed precautions, Rehab process, Transfer techniques Teaching Recipient: Patient, Family Teaching Methods: Demonstration, Discussion Response to Teaching: Verbalize Understanding, Return Demonstration OT Short Term Goals Short Term Goals Time Frame: Oct 28, 2016 Eating(FIM): 5 Grooming(FIM): 5 Bathing(FIM): 4 Upper Body Dressing(FIM): 5 Lower Body Dressing(FIM): 4 Toileting(FIM): 5 Transfers (B,C,W/C) (FIM): 5 Toilet/Commode Transfer(FIM): 5 Shower Transfer(FIM): 4 Additional Short Term Goals: 2-Verbalize Understanding, 3-ImproveStrength/Yimi 1=Demonstrate adherence to instructed precautions during ADL tasks. 2=Patient will verbalize/demonstrate understanding of assistive devices/ modifications for ADL. 3=Patient will improve strength/tolerance for activity to enable patient to perform ADL's. OT Senior Care Goals Stave Inspector Goals Time Frame: Nov 04, 2016 Eating (FIM): 6 Eating (QC): 66 Oral Hygiene (QC): 6 Grooming(FIM): 6 Bathing(FIM): 5 Shower/Bathe Self (QC): 5 Upper Body Dressing(FIM): 6 Upper Body Dressing (QC): 6 Lower Body Dressing(FIM): 6 Lower Body Dressing (QC): 6 On/Off Footwear (QC): 6 Toileting(FIM): 6 Toileting Hygiene (QC): 6 Transfers (B,C,W/C) (FIM): 6 Toilet/Commode Transfer(FIM): 6 Toilet/Commode Transfer (QC): 6 Shower Transfer(FIM): 5 Additional Goals: 1-Demonstrate ADL Tasks, 2-Verbalize Understanding, 3- ImproveStrength/Yimi 1=Demonstrate adherence to instructed precautions during ADL tasks. 2=Patient will verbalize/demonstrate understanding of assistive devices/ modifications for ADL. 3=Patient will improve strength/tolerance for activity to enable patient to perform ADL's. OT Education/Plan Problem List/Assessment Assessment: Decreased Activ Tolerance, Decreased Safety Aware, Decreased UE Strength, Dependent Transfers, Impaired Bed Mobility, Impaired Funct Balance, Impaired I ADL's, Impaired Self-Care Skills, Restricted Funct UE ROM Discharge Recommendations Plan Pt. states that he has a friend that can assist him in all ways. 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 Plan/Recommendations: Continue POC Therapy D/C Recommendations: Home w/ Family Support, Occupational Therapy Home Care Equpiment Recommendations-D/C: Extended Bath Bench, Hip Kit Barriers to Progress Pt. is somewhat self limiting. Target Placement Home with assist from family Treatment Plan/Plan of Care Treatment,Training & Education: Yes Patient would benefit from OT for education, treatment and training to promote independence in ADL's, mobility, safety and/or upper extremity function for ADL' s. Plan of Care: ADL Retraining, Functional Mobility, Group Exercise/Act as Ind, UE Funct Exercise/Act Treatment Duration: Nov 04, 2016 # of days/week 5-6 Visits Per Week: 10-12 Agreement: Yes Rehab Potential: Good Time/GCodes Start Time: 12:30 Stop Time: 14:45 Total Time Billed (hr/min): 80 Billed Treatment Time 2468-2822 PT eval no charge [id number] OT eval 1, EVModcomplexity [id number] co-treat FA x 25minutes (see above for OT/PT roles) [id number] co-treat 1, ADL x 30minutes, FA x 15minutes (see above for OT/PT roles ) LUCÍA WHITE OT Oct 21, 2016 16:19
[2016-10-21] MEDS: ACETAMINOPHEN 500 MG TAB (TYLENOL) PO PRN (17:03)
[2016-10-21] MEDS ORDERED: FLU TRIvalent (5 YOA+) 2016-17 (AFLURIA) 0.5 ML IM ONE (17:30)
[2016-10-21 18:54] VITALS: BP 137/80
[2016-10-21] MEDS ORDERED: ACET325T49 PO (19:58)
[2016-10-21] MEDS ORDERED: SENN-40 PO (20:04)
[2016-10-21] MEDS ORDERED: CIPR500T4 PO (20:04)
[2016-10-21] MEDS ORDERED: CEPH-507 PO (20:04)
[2016-10-21] MEDS ORDERED: MAGN800O PO (20:04)
[2016-10-21] MEDS ORDERED: OXYC-473 PO (20:09)
[2016-10-21] MEDS ORDERED: SIME80TA16 PO (20:09)
[2016-10-21] MEDS ORDERED: POLY17PO6 PO (20:09)
[2016-10-21] MEDS ORDERED: ALPR0.5T PO (20:09)
[2016-10-21] MEDS: ALPRAZolam 0.5 MG (XANAX) TAB PO PRN (20:23)
[2016-10-21] MEDS: CEPHALEXIN 250 MG (KEFLEX) CAP PO SCH (20:23)
[2016-10-21] MEDS: SENNA W/DOCUSATE (SENOKOT S) TABLET PO SCH (20:24)
[2016-10-21] MEDS ORDERED: POLYETHYLENE GLYCOL 17 GM (MIRALAX) PACK PO SCH (21:00)
[2016-10-22 05:43] VITALS: BP 130/71
[2016-10-22 06:20] LABS: BASOPHILS # (AUTO) 0.1 10^3/uL (0.0-0.1); BASOPHILS % (AUTO) 0 % (0-10); EOSINOPHILS # (AUTO) 0.8 10^3/uL (0.0-0.3); EOSINOPHILS % (AUTO) 4 % (0-10); LYMPHOCYTES # (AUTO) 1.8 X 10^3 (1.0-4.0); LYMPHOCYTES % (AUTO) 9 % (12-44); MEAN CORPUSCULAR HEMOGLOBIN 28 PG (25-34); MEAN CORPUSCULAR HGB CONC 32 G/DL (32-36); MEAN CORPUSCULAR VOLUME 89 FL (80-99); MEAN PLATELET VOLUME 9.6 FL (7.4-10.4); MONOCYTES # (AUTO) 2.1 X 10^3 (0.0-1.0); MONOCYTES % (AUTO) 11 % (0-12); NEUTROPHILS # (AUTO) 14.9 X 10^3 (1.8-7.8); NEUTROPHILS % (AUTO) 76 % (42-75); PLATELET COUNT 357 10^3/uL (130-400); RED CELL DISTRIBUTION WIDTH 16.5 % (10.0-14.5); WHITE BLOOD COUNT 19.7 10^3/uL (4.3-11.0)
[2016-10-22 06:46] LABS: ALANINE AMINOTRANSFERASE 20 U/L (0-55); ALBUMIN 2.7 G/DL (3.2-4.5); ANION GAP 11 MMOL/L (5-14); ASPARTATE AMINO TRANSFERASE 25 U/L (5-34); BILIRUBIN,TOTAL 0.2 MG/DL (0.1-1.0); BLOOD UREA NITROGEN 19 MG/DL (7-18); BUN/CREATININE RATIO 17; CARBON DIOXIDE 24 MMOL/L (21-32); CHLORIDE 99 MMOL/L (98-107); CREATININE SERUM 1.11 MG/DL (0.60-1.30); GFR ESTIMATED > 60; GLUCOSE 105 MG/DL (70-105); POTASSIUM 3.4 MMOL/L (3.6-5.0); SODIUM 134 MMOL/L (135-145); TOTAL PROTEIN 5.2 G/DL (6.4-8.2)
[2016-10-22 07:28] LABS: ANISOCYTOSIS SLIGHT; BAND NEUTROPHILS 5 %; BASOPHILS % (MANUAL) 0 %; EOSINOPHILS % (MANUAL) 5 %; LYMPHOCYTES % (MANUAL) 18 %; MYELOCYTES % 1 %; NEUTROPHILS % (MANUAL) 63 %; POLYCHROMASIA SLIGHT; REACTIVE LYMPHOCYTES 1 %
--- NOTE | 2016-10-22 07:46 | HISTORY AND PHYSICAL ---
DATE OF ADMISSION: 10/21/2016 CHIEF COMPLAINT: Weakness in left leg, difficulty with walking. HISTORY OF PRESENT ILLNESS: The patient is a 66-year-old male who presented to Dr. Biggs's office regarding hematuria. He had an initial evaluation with Dr. Biggs. The patient was felt to have bladder cancer and he was referred up to [facility] and for bladder cancer with metastasis to intra-abdominal lymph nodes. The patient underwent a cystoprostatectomy with the ileal conduit and bilateral pelvic lymph node dissection by Dr. Muller on 10/13/2016. The patient has some complaints of weakness and numbness around the left leg and is unable to straight leg raise on the left indicating quadriceps weakness. The patient indicates he has no primary care physician and has been seen by Dr. Biggs and Dr. Mcgowan but not regularly seek medical care. He is on medication for anxiety and has had chemotherapy and blood transfusions in the past. Currently he is min assist for transfers, bed mobility, and ambulation short distances with a quad cane or a front wheel walker. He tends to use a front wheel walker due to fear of loss of balance. He is modified independent for eating and grooming with extra time at the wheelchair level. Min assist for upper body dressing. Mod assist for lower body dressing. Bladder is managed with ileal conduit. He may need instruction and ostomy care, we will follow-up. He is reported to be continent of bowel but he has been on bowel medications for constipation and he has not eaten much as he did not care for the food at the outside hospital. He complains of gas. He is currently on a regular diet. PAST MEDICAL HISTORY: Had been independent, , retired, lives alone, but has a son that lives nearby. He lives in [place]. He states he is done a variety of jobs in the past. REVIEW OF SYSTEMS: Ten-point review of systems significant for complaints of abdominal discomfort, gas and numbness and weakness in the left leg with numbness predominantly around the left knee. MEDICATIONS: 1. Keflex 500 mg p.o. b.i.d. 2. MiraLAX 17 grams p.o. at bedtime. 3. Senokot-S 1 tablet p.o. b.i.d. 4. Lovenox 40 mg subcutaneous daily for DVT prophylaxis. 5. Tylenol 1000 mg p.o. q.6 h. p.r.n. pain. 6. OxyIR 5 mg p.o. q.4 hours p.r.n. severe pain. 7. Simethicone 80 mg p.o. q.i.d. p.r.n. indigestion. 8. Xanax 0.5 mg p.o. q.8 hours p.r.n. anxiety. PHYSICAL EXAMINATION: Significant for a pleasant male, appearing his stated age, lying in bed in no acute distress. VITAL SIGNS: Within normal limits. He is afebrile. HEENT: Vision, speech hearing grossly intact. No oral lesion is noted. NECK: Supple without mass. HEART: Regular rhythm. LUNGS: Clear. ABDOMEN: Soft, benign. Bowel sounds present, ileal conduit is functioning with a urine ostomy bag. EXTREMITIES: No lower edema. No calf tenderness. MUSCULOSKELETAL: The patient has functional active range of motion in both upper extremities and right lower extremity. Left lower extremity limited at the knee, he is unable to straight leg raise at the left knee. He is able to active hip flex at the left knee, but then cannot extend his left knee to bring it back to extension. NEUROLOGIC: Sensation - he reports some numbness around the left knee otherwise intact. Cognition appears intact. Strength good both upper extremities, good minus both lower extremities, other than the left quad which is 2+/5. IMPRESSION: 1. General debilitation secondary to bladder cancer, status post cystoprostatectomy with iliac condyle with bilateral pelvic lymph node dissection and Dr. Yohana MD, [facility] on 10/13 2016. 2. Postop weakness left quads most likely due to compression on the nerve, appears to be improving as per history. 3. Anxiety, on medication. 4. Hydronephrosis left kidney, treated. 5. History of chemotherapy. 6. History of blood transfusion PLAN: The patient will have a comprehensive program of inpatient rehabilitation with goal of maximizing level of functional dependence prior to discharge home with friends and home health care. The patient will have PT/OT 90 minutes per day, each discipline, 5 days week for gait strengthening, conditioning, balance, ADLs, any patient/family/caregiver training necessary, any adaptive equipment and training necessary. The patient is on 15 pound lifting restriction postoperatively. Speech therapy do cognitive assessment and treat as indicated. Rehabilitation nursing assist with bowel, ADLs, ileal conduit ostomy care, ostomy training as necessary, pain management, skin and wound care, medication administration. hotel services supervisor to assist with discharge planning, community reentry. Follow-up with Dr. Biggs and Dr. Mcgowan as per their schedule. Check labs in a.m. follow-up with his surgeon at [facility], upon discharge from rehab. Continue Lovenox subcutaneous for DVT prophylaxis, adjust bowel medications for constipation as needed. ESTIMATED LENGTH OF STAY: Two weeks. PROGNOSIS: Rehab prognosis appears good for goal of discharging home with friends and home health care hopefully, modified independent to supervision for ADLs, mobility skills and ostomy care. DIET: Regular. CODE STATUS: Full code. POST ADMISSION PHYSICIAN ASSESSMENT: The preadmission screen agrees with the post admission assessment that the patient is a good candidate for inpatient rehabilitation. He appears to be well motivated to participate in 3 hours of therapy a day. He is able tolerate 3 hours of therapy a day from a medical and surgical standpoint. He should benefit from the 3 hours of therapy a day. He has a reasonable discharge plan, reasonable discharge rehabilitation goals and supportive friends and family. He has various comorbidities that need to be closely monitored with medications and treatments adjusted on daily basis as needed. These include his recent surgery for his bladder cancer with mets and pain management and history of anxiety. Barriers to discharge for this patient who had been independent prior to this are for him to be modified independent to supervision for ADLs and mobility skills prior to discharge home with his friends, family and home health care. Weakness, numbness in his left quads which impedes his mobility. Risks for this patient include: 1. Worsening weakness, numbness in left leg. 2. Fall. 3. Fracture. 4. DVT. 5. Pulmonary embolism. 6. Wound infection. 7. Skin breakdown. 8. Respiratory infection. 9. Aspiration. 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
[2016-10-22] MEDS: SIMETHICONE 80 MG (MYLICON) CHEW PO PRN (07:48)
[2016-10-22] MEDS: CEPHALEXIN 250 MG (KEFLEX) CAP PO SCH ×2 (09:38→20:12)
[2016-10-22] MEDS: SENNA W/DOCUSATE (SENOKOT S) TABLET PO SCH ×2 (09:39→20:12)
--- NOTE | 2016-10-22 09:56 | Occupational Ther Daily Note ---
OT Current Status-Daily Note Subjective Pt. reports pain, 10/10 in abdomen. Has already had pain medication. Pt. requires encouragement to do for self. Appearance Pt. is in bed talking with son. Agrees to treatment but continually states, "I don't know if I can do anything today." Pt. requires cues and encouragement to do for self and to participate. Declines showering, but agrees to spongebathe. Mental Status/Objective Patient Orientation: Person, Place Functional [place] Measure 0=Not Assessed/NA 4=Minimal Assistance 1=Total Assistance 5=Supervision or Setup 2=Maximal Assistance 6=Modified [place] 3=Moderate Assistance 7=Complete [place] ADL-Treatment Functional [place] Measure 0=Not Assessed/NA 4=Minimal Assistance 1=Total Assistance 5=Supervision or Setup 2=Maximal Assistance 6=Modified [place] 3=Moderate Assistance 7=Complete IndependenceIRFPAI Quality Coding Scale 6 Independent with activity with or without an assistive device 5 Patient requires set up or clean up by helper. Patient completes activity by themselves 4 Supervision or touching assist (CGA). Lena provide cues , steadying assist 3 The helper provides less than half the effort to complete the activity 2 The helper provides more than half the effort to complete the activity 1 Dependent. The helper does all the effort to complete an activity 7 Patient refused to complete or attempt activity 9 The patient did not perform the activity before the current illness or injury 88 Not attempted due to Medical conditions or safety concerns Eating (FIM): 5 (set up) Eating (QC): 5 (supervision) Grooming (FIM): 5 (set up) Oral Hygiene (QC): 5 (set up) Toileting Hygiene (QC): 1 (Pt. is incontinent of urine while standing. This comes out of his incision. Requires dependent assistance to cleanse self. Pt. also states that he can't tell if he is continent of bowel. Requires max assist to wash rear karen area.) Bathing (FIM): 3 (Pt. requires mod assist to bathe. Is unable to thoroughly wash front and rear karen area, or bilateral LE.) Upper Body (FIM): 4 (Min assist for shirt.) Upper Body Dressing (QC): 4 Lower Body Dressing (FIM): 2 (Pt. is able to pull pants down over hips, but needs asssistance to pull them off. Pt. does not initiate or want to try doffing/donning socks. Requires max assist to don brief.) Lower Body Dressing (QC): 2 On/Off Footwear (QC): 2 Toileting (FIM): 1 Transfers (B, C, W/C) (FIM): 4 (Min assist for supine-sit, and min assist for sit-stand. Requires min assist to get left foot back into bed to lie down.) Pt. requires frequent cues and rest breaks to complete ADL tasks. Pt. is somewhat self limiting and states that he can't do things. Once he is shown that he can, will participate. Pt. encouraged to do for self. States that he is weak and hurting. Pt. has had nausea as well as pain medication this morning. Education OT Patient Education: Correct positioning, Modified ADL techniques, Progress toward Goal/Update tx plan, Purpose of tx/functional activities, Reviewed precautions, Rehab process, Transfer techniques Teaching Recipient: Patient Teaching Methods: Demonstration, Discussion Response to Teaching: Verbalize Understanding, Return Demonstration OT Short Term Goals Short Term Goals Time Frame: Oct 28, 2016 Eating(FIM): 5 Grooming(FIM): 5 Bathing(FIM): 4 Upper Body Dressing(FIM): 5 Lower Body Dressing(FIM): 4 Toileting(FIM): 5 Transfers (B,C,W/C) (FIM): 5 Toilet/Commode Transfer(FIM): 5 Shower Transfer(FIM): 4 Additional Short Term Goals: 2-Verbalize Understanding, 3-ImproveStrength/Yimi 1=Demonstrate adherence to instructed precautions during ADL tasks. 2=Patient will verbalize/demonstrate understanding of assistive devices/ modifications for ADL. 3=Patient will improve strength/tolerance for activity to enable patient to perform ADL's. OT Mcc Goals Mcc Goals Time Frame: Nov 04, 2016 Eating (FIM): 6 Eating (QC): 66 Oral Hygiene (QC): 6 Grooming(FIM): 6 Bathing(FIM): 5 Shower/Bathe Self (QC): 5 Upper Body Dressing(FIM): 6 Upper Body Dressing (QC): 6 Lower Body Dressing(FIM): 6 Lower Body Dressing (QC): 6 On/Off Footwear (QC): 6 Toileting(FIM): 6 Toileting Hygiene (QC): 6 Transfers (B,C,W/C) (FIM): 6 Toilet/Commode Transfer(FIM): 6 Toilet/Commode Transfer (QC): 6 Shower Transfer(FIM): 5 Additional Goals: 1-Demonstrate ADL Tasks, 2-Verbalize Understanding, 3- ImproveStrength/Yimi 1=Demonstrate adherence to instructed precautions during ADL tasks. 2=Patient will verbalize/demonstrate understanding of assistive devices/ modifications for ADL. 3=Patient will improve strength/tolerance for activity to enable patient to perform ADL's. OT Education/Plan Problem List/Assessment Assessment: Decreased Activ Tolerance, Decreased Safety Aware, Decreased UE Strength, Dependent Transfers, Impaired Bed Mobility, Impaired Cognition, Impaired Coordination, Impaired Funct Balance, Impaired I ADL's, Impaired Self- Care Skills, Restricted Funct UE ROM Discharge Recommendations Plan/Recommendations: Continue POC Therapy D/C Recommendations: Home w/ Family Support, Occupational Therapy Home Care Treatment Plan/Plan of Care Treatment,Training & Education: Yes Patient would benefit from OT for education, treatment and training to promote independence in ADL's, mobility, safety and/or upper extremity function for ADL' s. Plan of Care: ADL Retraining, Functional Mobility, Group Exercise/Act as Ind, UE Funct Exercise/Act Treatment Duration: Nov 04, 2016 Visits Per Week: 10-12 Agreement: Yes Rehab Potential: Good Time/GCodes Start Time: 08:30 Stop Time: 09:30 Total Time Billed (hr/min): 60 Billed Treatment Time 1, ADL x 4 LUCÍA WHITE OT Oct 22, 2016 09:55
--- NOTE | 2016-10-22 11:28 | PM & R (SOAP) Progress Note ---
Subjective Subjective/Events-last exam Patient was seen in his room having some nausea was able to eat breakfast Patient refusing Miralax,Discussed with DEEPTHI Jimenez ordered. Patient without PCP Will Consult Hospitalist to see See orders Patient Max assist for LB dressing. Objective Exam Last Set of Vital Signs Vital Signs Date Time Temp Pulse Resp B/P Pulse Ox O2 Delivery O2 Flow Rate FiO2 10/22/16 05:43 98.7 85 16 130/71 95 Room Air Capillary Refill : I&O Bad tableGeneral: Alert, Oriented X3, Cooperative, No Acute Distress HEENT: Atraumatic, PERRLA, EOMI, Mucous Memb Moist/[place] Neck: Supple, No JVD Lungs: Clear to Auscultation Heart: Regular Rate Abdomen: Normal Bowel Sounds, Other (Mildly distended and tender Ileoconduit functioning) Results Lab Laboratory Tests 10/22/16 05:50: Alanine Aminotransferase (ALT/SGPT) 20, Albumin 2.7L, Alkaline Phosphatase 66, Anion Gap 11, Anisocytosis SLIGHT, Aspartate Amino Transf (AST/SGOT) 25, BUN/ Creatinine Ratio 17, Band Neutrophils 5, Basophils # (Auto) 0.1, Basophils % ( Manual) 0, Basophils (%) (Auto) 0, Blood Urea Nitrogen 19H, Calcium Level 8.0L, Carbon Dioxide Level 24, Chloride Level 99, Creatinine 1.11, Elliptocytes SLIGHT , Eosinophils # (Auto) 0.8H, Eosinophils % (Manual) 5, Eosinophils (%) (Auto) 4 , Estimat Glomerular Filtration Rate > 60, Glucose Level 105, Hematocrit 30L, Hemoglobin 9.5L, Lymphocytes # (Auto) 1.8, Lymphocytes % (Manual) 18, Lymphocytes (%) (Auto) 9L, Mean Corpuscular Hemoglobin 28, Mean Corpuscular Hemoglobin Concent 32, Mean Corpuscular Volume 89, Mean Platelet Volume 9.6, Monocytes # (Auto) 2.1H, Monocytes % (Manual) 7, Monocytes (%) (Auto) 11, Myelocytes % 1, Neutrophils # (Auto) 14.9H, Neutrophils % (Manual) 63, Neutrophils (%) (Auto) 76H, Platelet Count 357, Polychromasia SLIGHT, Potassium Level 3.4L, Reactive Lymphocytes 1, Red Blood Count 3.40L, Red Cell Distribution Width 16.5H, Sodium Level 134L, Total Bilirubin 0.2, Total Protein 5.2L, White Blood Count 19.7H Assessment/Plan Assessment S/P ileoconduit for bladder [place] mets s/p surgery [facility] Nausea multifactorial DVT prophylaxis -Lovenix Sub Cut 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
[2016-10-22] MEDS ORDERED: ONDANSETRON 4 MG (ZOFRAN) ORAL DISSOLVE TAB PO PRN (11:30)
--- NOTE | 2016-10-22 11:45 | Physical Therapy Daily Note ---
PT Daily Note-Current Subjective Pt supine in bed with head of bed raised upon arrival. Pt reports feeling sick and having a lot of gas today. PT explained expelling gas is a good thing at this point for pt. Pt agreed to PT. Pain Numeric Pain Scale: 7 Location: Incisional Location Body Site: Abdomen Pain Description: Ache Comment: Pt reports pain with gas movement that comes and goes. Mental Status Patient Orientation: Person, Time, Normal For Age Attachments: Colostomy/Ileostomy, Drains, Scott Catheter Transfers Functional [place] Measure 0=Not Assessed/NA 4=Minimal Assistance 1=Total Assistance 5=Supervision or Setup 2=Maximal Assistance 6=Modified [place] 3=Moderate Assistance 7=Complete IndependenceIRFPAI Quality Coding Scale 6 Independent with activity with or without an assistive device 5 Patient requires set up or clean up by helper. Patient completes activity by themselves 4 Supervision or touching assist (CGA). [place] provide cues , steadying assist 3 The helper provides less than half the effort to complete the activity 2 The helper provides more than half the effort to complete the activity 1 Dependent. The helper does all the effort to complete an activity 7 Patient refused to complete or attempt activity 9 The patient did not perform the activity before the current illness or injury 88 Not attempted due to Medical conditions or safety concerns Scootin Supine to/from Sit: 4 Sit to/from Stand: 4 Weight Bearing Weight Bearing Restriction: Full Weight Bearing Location Restriction: LE Bilateral Gait Training Does the Patient Walk?: Yes Gait (FIM): 3 Distance (FIM): 3=668-88 ft Distance: 120' Gait Level of Assist: 4 Gait Persons Needed: 1 Gait Assistive Device: FWW Pt is very anxious and nervous that he will fall. Pt walks with a guarded gait but no LOB at all. Exercises Seated Therapy Exercises: Ankle pumps, Long arc quads, Hip flexion, Kicking activity, Hamstring Curls, Hip abd/add Seated Reps: 15 Treatments Pt reports sick and nauseated feeling with movement. PT reported to nurse. PT assists pt with donning pants before transferring from bed. Pt was able to bridge to get pants on though. Pt transfers supine to EOB at Min A then EOB to standing using FWW at Min A. Pt ambulates to Therapy Gym using FWW at Min A. Pt needs to rest in chair in Gym to rest. Pt then completes seated EX with rest breaks for fatigue & nausea. Pt then ambulates back to room using FWW at Min A. Pt transfers to recliner at Min A and is left with all needs met. Assessment Current Status: Fair Progress Pt has a lot of anxiety and has fear of falling. Pt reports trouble with gas and nausea. PT reported to nurse. Pt fatigues easy and reports discomfort in feet with ambulation. PT Short Term Goals Short Term Goals Time Frame: Oct 28, 2016 Transfers (B,C,W/C) (FIM): 5 Gait (FIM): 5 Distance (FIM): 3=150 ft Gait Assistive Device: FWW PT Fpc Goals Fpc Goals PT Densitometer Reader Goals Time Frame: Nov 06, 2016 Transfers (B,C,W/C) (FIM): 6 Sit to Lying (QC): 6 Lying-Sitting on Side/Bed(QC): 6 Sit to Stand (QC): 6 Rollin Roll Left to Right (QC): 6 Chair/Cib-py-Ykffh Xfer(QC): 6 Car Transfer (QC): 6 Does the Patient Walk: Yes Gait (FIM): 6 Gait distance (FIM): 3=150 ft Distance: >150 ft Walk 10 feet (QC): 6 Walk 10ft-Uneven Surface(QC): 6 Walk 50ft with 2 Turns (QC): 6 Walk 150 ft (QC): 6 Gait Level of Assist: 6 Gait Assistive Device: Cane Single Point Does the Pt use WC or Scooter?: No Stairs (FIM): 6 # of Steps: 12 1 Step (curb) (QC): 6 4 Steps (QC): 6 12 Steps (QC): 6 Stairs Level Of Assist: 6 Picking up an Object (QC): 5 PT Plan Problem List Problem List: Activity Tolerance, Functional Strength, Safety, Balance, Gait, Transfer Treatment/Plan Treatment Plan: Continue Plan of Care Treatment Plan: Bed Mobility, Education, Functional Activity Yimi, Functional Strength, Group Therapy, Gait, Safety, Therapeutic Exercise, Transfers Treatment Duration: Nov 06, 2016 Visits Per Week: 10-15 Minutes/Day (M-F): 60-90 Minutes/Day (Sat/[place]): prn Safety Risks/Education Patient Education: Gait Training, Transfer Techniques, Correct Positioning, Safety Issues Teaching Recipient: Patient Teaching Methods: Discussion Response to Teaching: Verbalize Understanding Time/GCodes Time In: 1030 Time Out: 1130 Total Billed Treatment Time: 60 Total Billed Treatment visit, FA x2 (30m), GT (15m) & EX (15m) JESUS BENNETT ACID PURIFIER Oct 22, 2016 11:45
--- NOTE | 2016-10-22 13:32 | Physical Therapy Daily Note ---
PT Daily Note-Current Subjective Pt sitting up in bed upon arrival. Pt reports less pain right now than this morning (11/27). Pt agrees to supine EX since just transferred from [facility] and it was uncomfortable. Pain Numeric Pain Scale: 2 Location: Incisional Location Body Site: Abdomen Pain Description: Ache Mental Status Patient Orientation: Person, Normal For Age Transfers Functional [place] Measure 0=Not Assessed/NA 4=Minimal Assistance 1=Total Assistance 5=Supervision or Setup 2=Maximal Assistance 6=Modified [place] 3=Moderate Assistance 7=Complete IndependenceIRFPAI Quality Coding Scale 6 Independent with activity with or without an assistive device 5 Patient requires set up or clean up by helper. Patient completes activity by themselves 4 Supervision or touching assist (CGA). [place] provide cues , steadying assist 3 The helper provides less than half the effort to complete the activity 2 The helper provides more than half the effort to complete the activity 1 Dependent. The helper does all the effort to complete an activity 7 Patient refused to complete or attempt activity 9 The patient did not perform the activity before the current illness or injury 88 Not attempted due to Medical conditions or safety concerns Weight Bearing Weight Bearing Restriction: Full Weight Bearing Location Restriction: LE Bilateral Exercises Supine Ex: Ankle pumps, Quad Set, Heel Slides, Scooting, Straight leg raise, Hip abd/add Supine Reps: 15 Treatments Pt scoots up in bed at start of tx with PT assistance to put head of bed down and VC for hand placement and bridge technique. Pt then able to scoot up. Pt returns to more seated position then completes supine EX in bed. Pt requires several rest breaks during tx due to fatigue in legs. Pt is left with all needs met at end of tx. Assessment Current Status: Fair Progress Pt reports less pain this afternoon but still fatigues easy and needs assistance with LLE due to weakness. PT Short Term Goals Short Term Goals Time Frame: Oct 28, 2016 Transfers (B,C,W/C) (FIM): 5 Gait (FIM): 5 Distance (FIM): 3=150 ft Gait Assistive Device: FWW PT Shelter Goals Shelter Goals PT Car Pick Up Driver Goals Time Frame: Nov 06, 2016 Transfers (B,C,W/C) (FIM): 6 Sit to Lying (QC): 6 Lying-Sitting on Side/Bed(QC): 6 Sit to Stand (QC): 6 Rollin Roll Left to Right (QC): 6 Chair/Fil-tg-Epdyj Xfer(QC): 6 Car Transfer (QC): 6 Does the Patient Walk: Yes Gait (FIM): 6 Gait distance (FIM): 3=150 ft Distance: >150 ft Walk 10 feet (QC): 6 Walk 10ft-Uneven Surface(QC): 6 Walk 50ft with 2 Turns (QC): 6 Walk 150 ft (QC): 6 Gait Level of Assist: 6 Gait Assistive Device: Cane Single Point Does the Pt use WC or Scooter?: No Stairs (FIM): 6 # of Steps: 12 1 Step (curb) (QC): 6 4 Steps (QC): 6 12 Steps (QC): 6 Stairs Level Of Assist: 6 Picking up an Object (QC): 5 PT Plan Problem List Problem List: Activity Tolerance, Functional Strength, Safety, Balance, Gait, Transfer, Bed Mobility, ROM Treatment/Plan Treatment Plan: Continue Plan of Care Treatment Plan: Bed Mobility, Education, Functional Activity Yimi, Functional Strength, Group Therapy, Gait, Safety, Therapeutic Exercise, Transfers Treatment Duration: Nov 06, 2016 Visits Per Week: 10-15 Minutes/Day (M-F): 60-90 Minutes/Day (Sat/[place]): prn Safety Risks/Education Patient Education: Transfer Techniques, Correct Positioning, Safety Issues Teaching Recipient: Patient Teaching Methods: Discussion Response to Teaching: Verbalize Understanding Time/GCodes Time In: 1300 Time Out: 1330 Total Billed Treatment Time: 30 Total Billed Treatment visit, EX X2 (30m) JESUS BENNETT PTA Oct 22, 2016 13:31
--- NOTE | 2016-10-22 15:36 | Individualized Plan of Care ---
Individualized Plan of Care Rehab Nursing IPOC Order Admission Date Oct 21, 2016 at 13:05 Current Orders Orders-MARIFER HUNG MD Admission Arrival Bed Request (10/21/16 13:10) Patient Visit (10/21/16 ) Speech Sound Lang Comp (10/21/16 ) Admission-Acute Rehab Unit (10/21/16 14:41) Vital Signs: Routine 08,16,00 (10/21/16 14:41) Social Service (10/21/16 14:41) Rehab Nursing Orders-Ipoc (10/21/16 14:41) Physical Therapy Rehab Orders (10/21/16 14:41) Occupational Therapy Rehab Ord (10/21/16 14:41) Speech Therapy Rehab Orders (10/21/16 14:41) General/Regular (10/21/16 Dinner) Intake & Output Shift Assessme 06,14,22 (10/21/16 14:41) Precautions (Aru) (10/21/16 14:41) Weekly Weight (Lbs) WEEK (10/21/16 14:41) Cbc With Automated Diff (10/22/16 06:00) Comprehensive Metabolic Panel (10/22/16 06:00) Consult Physician (10/21/16 14:46) Consult Physician (10/21/16 14:48) General/Regular (10/21/16 Lunch) Acetaminophen Tablet (Tylenol Tablet) (10/21/16 15:15) Cephalexin Capsule (Keflex Capsule) (10/21/16 21:00) Oxycodone Immediate Rel Tablet (Oxyir Ta (10/21/16 15:15) Polyethylene Glycol Powder Pkt (Miralax (10/21/16 21:00) Senna S Tablet (Senokot S Tablet) (10/21/16 21:00) Simethicone Tablet (Mylicon Chewable Tab (10/21/16 15:15) Alprazolam Tablet (Xanax Tablet) (10/21/16 15:15) Enoxaparin Injection (Lovenox Injection) (10/21/16 16:00) Request Ot Evaluate & Treat (10/21/16 16:01) Patient Visit (10/21/16 ) Functional Activities, Ea 15 (10/21/16 ) Pt Eval Moderate Complexity (10/21/16 ) Influenza Vac Order Indicated (10/21/16 17:06) Influenza Trivalent 1037-1053 (Afluria ( (10/21/16 17:30) Nursing Communication (Pt.Care (10/21/16 17:22) Nursing Communication (Pt.Care (10/21/16 17:22) Nursing Communication (Pt.Care (10/21/16 17:22) Sequential Compression Device 08,20 (10/21/16 18:11) Manual Differential (10/22/16 05:50) Ondansetron Oral Dissolve Tab (Zofran (10/22/16 11:30) Consult Physician (10/22/16 11:18) Patient Visit (10/22/16 ) Functional Activities, Ea 15 (10/22/16 ) Gait Training, Ea 15 Min (10/22/16 ) Exercise Therap, Ea 15 Min (10/22/16 ) PT IPOC Problem List: Activity Tolerance, Functional Strength, Safety, Balance, Gait, Transfer, Bed Mobility, ROM Treatment Plan: Continue Plan of Care Bed Mobility, Education, Functional Activity Yimi, Functional Strength, Group Therapy, Gait, Safety, Therapeutic Exercise, Transfers Treatment Duration: Nov 06, 2016 Visits Per Week: 10-15 Minutes/Day (M-F): 60-90 Minutes/Day (Sat/[place]): prn OT IPOC Problems: Decreased Activ Tolerance, Decreased Safety Aware, Decreased UE Strength, Dependent Transfers, Impaired Bed Mobility, Impaired Cognition, Impaired Coordination, Impaired Funct Balance, Impaired I ADL's, Impaired Self- Care Skills, Restricted Funct UE ROM Plan of Care: ADL Retraining, Functional Mobility, Group Exercise/Act as Ind, UE Funct Exercise/Act Treatment Duration: Nov 04, 2016 Visits Per Week: 10-12 Minutes/Day (M-F): 60-90 Minutes/Day (Sat/[place]): prn ST IPOC Speech Therapy Treatment Plan: Discontinue ST Physician IPOC Medical Issues being managed closely and that require the 24 hour availability of a physician: Ilealconduit functioning and wound healing and pain management and treatment of constipation and nausea.Discussed case with Dr Kalyan DIEZ [facility] to f/u re f/u adjuvant treatment Brief Synthesis of Preadmission Screen, Post-Admission Evaluation, and Therapy Evaluations: Medical Prognosis: good Anticipated Length of Stay: 2 weeks Rehab Goals Modified [place] for adls and mobility skills and management if ilealconduit ostomy bag Anticipated discharge destinat: Home with [facility] and family MARIFER HUNG MD Oct 22, 2016 15:36
--- NOTE | 2016-10-22 15:58 | Occupational Ther Daily Note ---
OT Current Status-Daily Note Subjective Pt. reports pain with movement, but does not state a pain level. Requires encouragement to participate. Appearance Pt. is in bed. Agrees to treatment, but requires encouragement. Mental Status/Objective Patient Orientation: Person, Place Functional [place] Measure 0=Not Assessed/NA 4=Minimal Assistance 1=Total Assistance 5=Supervision or Setup 2=Maximal Assistance 6=Modified [place] 3=Moderate Assistance 7=Complete [place] ADL-Treatment Functional [place] Measure 0=Not Assessed/NA 4=Minimal Assistance 1=Total Assistance 5=Supervision or Setup 2=Maximal Assistance 6=Modified [place] 3=Moderate Assistance 7=Complete IndependenceIRFPAI Quality Coding Scale 6 Independent with activity with or without an assistive device 5 Patient requires set up or clean up by helper. Patient completes activity by themselves 4 Supervision or touching assist (CGA). [place] provide cues , steadying assist 3 The helper provides less than half the effort to complete the activity 2 The helper provides more than half the effort to complete the activity 1 Dependent. The helper does all the effort to complete an activity 7 Patient refused to complete or attempt activity 9 The patient did not perform the activity before the current illness or injury 88 Not attempted due to Medical conditions or safety concerns Transfers (B, C, W/C) (FIM): 4 (Pt. this afternoon is able to transfer supine- sit with SBA, and sit-stand with CGA. Then is able to transfer back to sitting and then to lying down with SBA.) Other Treatment Pt. agrees to transfer to EOB. Pt. is educated on adaptive equipment to assist with LE bathing and dressing. Pt. practices doffing/donning sock with equipment , but requires assistance and increased time. Pt. states that he will have someone do this for him. Is encouraged to do for self, as pt. is not motivated at times. Pt. then is educated on being able to transfer into bed without rails , as he will not have them at home. Pt. does not seem to grasp this. Educated on adaptive technique that he can use at home. Verbalizes understanding of this. Requires HOB to be elevated to lay back down. Pt. seems to have difficulty comprehending being independent before discharge home. All needs met. Education OT Patient Education: Modified ADL techniques, Progress toward Goal/Update tx plan, Purpose of tx/functional activities, Reviewed precautions, Transfer techniques Teaching Recipient: Patient Teaching Methods: Demonstration, Discussion Response to Teaching: Verbalize Understanding, Return Demonstration OT Short Term Goals Short Term Goals Time Frame: Oct 28, 2016 Eating(FIM): 5 Grooming(FIM): 5 Bathing(FIM): 4 Upper Body Dressing(FIM): 5 Lower Body Dressing(FIM): 4 Toileting(FIM): 5 Transfers (B,C,W/C) (FIM): 5 Toilet/Commode Transfer(FIM): 5 Shower Transfer(FIM): 4 Additional Short Term Goals: 2-Verbalize Understanding, 3-ImproveStrength/Yimi 1=Demonstrate adherence to instructed precautions during ADL tasks. 2=Patient will verbalize/demonstrate understanding of assistive devices/ modifications for ADL. 3=Patient will improve strength/tolerance for activity to enable patient to perform ADL's. OT Usp Goals Oil Agent Goals Time Frame: Nov 04, 2016 Eating (FIM): 6 Eating (QC): 66 Oral Hygiene (QC): 6 Grooming(FIM): 6 Bathing(FIM): 5 Shower/Bathe Self (QC): 5 Upper Body Dressing(FIM): 6 Upper Body Dressing (QC): 6 Lower Body Dressing(FIM): 6 Lower Body Dressing (QC): 6 On/Off Footwear (QC): 6 Toileting(FIM): 6 Toileting Hygiene (QC): 6 Transfers (B,C,W/C) (FIM): 6 Toilet/Commode Transfer(FIM): 6 Toilet/Commode Transfer (QC): 6 Shower Transfer(FIM): 5 Additional Goals: 1-Demonstrate ADL Tasks, 2-Verbalize Understanding, 3- ImproveStrength/Yimi 1=Demonstrate adherence to instructed precautions during ADL tasks. 2=Patient will verbalize/demonstrate understanding of assistive devices/ modifications for ADL. 3=Patient will improve strength/tolerance for activity to enable patient to perform ADL's. OT Education/Plan Problem List/Assessment Assessment: Decreased Activ Tolerance, Decreased UE Strength, Dependent Transfers, Impaired Bed Mobility, Impaired Cognition, Impaired Funct Balance, Impaired I ADL's, Impaired Self-Care Skills Discharge Recommendations Plan/Recommendations: Continue POC Therapy D/C Recommendations: Home w/ Family Support, Occupational Therapy Home Care Treatment Plan/Plan of Care Treatment,Training & Education: Yes Patient would benefit from OT for education, treatment and training to promote independence in ADL's, mobility, safety and/or upper extremity function for ADL' s. Plan of Care: ADL Retraining, Functional Mobility, Group Exercise/Act as Ind, UE Funct Exercise/Act Treatment Duration: Nov 04, 2016 Visits Per Week: 10-12 Minutes/Day (M-F): 60-90 Minutes/Day (Sat/[place]): prn Agreement: Yes Rehab Potential: Good Time/GCodes Start Time: 13:30 Stop Time: 14:00 Total Time Billed (hr/min): 30 Billed Treatment Time 1, ADL x 2 LUCÍA WHITE OT Oct 22, 2016 15:58
[2016-10-22] MEDS: ENOXAPARIN 40 MG/0.4 ML (LOVENOX) SYR SC SCH (17:34)
[2016-10-22 18:10] VITALS: BP 129/83
[2016-10-22] MEDS: ALPRAZolam 0.5 MG (XANAX) TAB PO PRN (20:14)
[2016-10-23] MEDS: ALPRAZolam 0.5 MG (XANAX) TAB PO PRN ×3 (04:22→19:57)
[2016-10-23 05:47] VITALS: BP 137/71
--- NOTE | 2016-10-23 07:39 | CONSULTATION REPORT ---
DATE OF CONSULTATION: 10/22/2016 ATTENDING PHYSICIAN: Dr. Mccauley. SUMMARY: 66-year-old white man known to me for invasive carcinoma of the bladder whom I referred to [facility] for cystectomy and the patient indeed underwent a radical cystoprostatectomy and ileal loop conduit after a course of chemotherapy by Dr. Mcgowan. He is here in rehab for rehabilitation and had some numbness and mild weakness in the quads on the left side which is getting better in every way. He does not have any adduction problem at all and adducts his leg very well. The stoma looks nice and pink. The urine is clear. He is very happy. IMPRESSION: Bladder cancer status post radical cystoprostatectomy with ileal loop conduit and recovering well. Thank you for letting me participate in the care of this patient. We will follow with you. PLAN: Continue present management and follow-up with me later on. Job ID: [id number] Dictated Date: 10/22/2016 12:06:06 Production Associate Date: 10/22/2016 12:44:21/esperanza
[2016-10-23] MEDS: CEPHALEXIN 250 MG (KEFLEX) CAP PO SCH ×2 (08:11→20:02)
[2016-10-23] MEDS: SENNA W/DOCUSATE (SENOKOT S) TABLET PO SCH ×2 (08:11→20:03)
[2016-10-23] MEDS ORDERED: KCL 10 MEQ TAB (MICRO K) PO ONE (10:03)
--- NOTE | 2016-10-23 10:10 | PM & R (SOAP) Progress Note ---
Subjective Subjective/Events-last exam Patient was seen in his room this AM Discussed case with DR Biggs yesterday and Hospitalist today Patient progressing well with therapies.Labs noted Anemic and hypokalemic Replacement ordered.Patient min assist for transfers Endurance improving Objective Exam Last Set of Vital Signs Vital Signs Date Time Temp Pulse Resp B/P Pulse Ox O2 Delivery O2 Flow Rate FiO2 10/23/16 09:00 Room Air 10/23/16 05:47 97.9 84 20 137/71 96 Capillary Refill : Less Than 3 Seconds I&O Intake and Output 10/23/16 00:00 Intake Total 1100 ml Output Total 1325 ml Balance -225 ml Intake Oral 1100 ml Output Urine Total 1325 ml General: Alert, Oriented X3, Cooperative, No Acute Distress HEENT: Atraumatic, PERRLA, EOMI, Mucous Memb Moist/[place] Neck: Supple, No JVD Lungs: Clear to Auscultation Heart: Regular Rate Abdomen: Normal Bowel Sounds, Other (Mildly distended and tender Ileoconduit functioning) Results Lab Laboratory Tests 10/22/16 05:50: Alanine Aminotransferase (ALT/SGPT) 20, Albumin 2.7L, Alkaline Phosphatase 66, Anion Gap 11, Anisocytosis SLIGHT, Aspartate Amino Transf (AST/SGOT) 25, BUN/ Creatinine Ratio 17, Band Neutrophils 5, Basophils # (Auto) 0.1, Basophils % ( Manual) 0, Basophils (%) (Auto) 0, Blood Urea Nitrogen 19H, Calcium Level 8.0L, Carbon Dioxide Level 24, Chloride Level 99, Creatinine 1.11, Elliptocytes SLIGHT , Eosinophils # (Auto) 0.8H, Eosinophils % (Manual) 5, Eosinophils (%) (Auto) 4 , Estimat Glomerular Filtration Rate > 60, Glucose Level 105, Hematocrit 30L, Hemoglobin 9.5L, Lymphocytes # (Auto) 1.8, Lymphocytes % (Manual) 18, Lymphocytes (%) (Auto) 9L, Mean Corpuscular Hemoglobin 28, Mean Corpuscular Hemoglobin Concent 32, Mean Corpuscular Volume 89, Mean Platelet Volume 9.6, Monocytes # (Auto) 2.1H, Monocytes % (Manual) 7, Monocytes (%) (Auto) 11, Myelocytes % 1, Neutrophils # (Auto) 14.9H, Neutrophils % (Manual) 63, Neutrophils (%) (Auto) 76H, Platelet Count 357, Polychromasia SLIGHT, Potassium Level 3.4L, Reactive Lymphocytes 1, Red Blood Count 3.40L, Red Cell Distribution Width 16.5H, Sodium Level 134L, Total Bilirubin 0.2, Total Protein 5.2L, White Blood Count 19.7H Assessment/Plan Assessment S/P ileoconduit for bladder Cawith mets s/p surgery [facility] Nausea multifactorial DVT prophylaxis -Lovenix Sub Cut 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
[2016-10-23] MEDS ORDERED: KCL 10 MEQ TAB (MICRO K) PO SCH (10:15)
--- NOTE | 2016-10-23 10:16 | Occupational Ther Daily Note ---
OT Current Status-Daily Note Subjective Pt lying in bed. No pain mentioned. Agreeable to OT. Appearance Alert, Talkative , Cooperative Mental Status/Objective Functional [place] Measure 0=Not Assessed/NA 4=Minimal Assistance 1=Total Assistance 5=Supervision or Setup 2=Maximal Assistance 6=Modified [place] 3=Moderate Assistance 7=Complete [place] ADL-Treatment Pt declined shower and stated he didn't want to do anything. OT suggested to pt to at least change clothes and wash face, brush teeth. Pt agreed. Verbal cues used for hand placement. Pt walked to bathroom, CGA, FWW. Pt sat in chair in front of sink doffed shirt and washed/dried face, hands,arms, shaved face with electrical shaver, set up, SBA. Pt donned shirt after completing UB washing/ drying. Pt asked to be toileted, CGA, FWW, using grab bars to lower self to toilet. Pt unable to doff brief, pajama pants, Min A. Using grab bars pt was able to complaint evaluation supervisor front of FWW, CGA. Min A to wash front/back karen area and pull brief, pajama pants. Pt walked back to room sat at EOB, FWW, CGA. Pt verbally expressed self by stating he is unable to feel when he is having a BM. Pt takes increased time to complete all tasks. Pt left sitting on EOB in care of PT. All needs met. Functional [place] Measure 0=Not Assessed/NA 4=Minimal Assistance 1=Total Assistance 5=Supervision or Setup 2=Maximal Assistance 6=Modified [place] 3=Moderate Assistance 7=Complete IndependenceIRFPAI Quality Coding Scale 6 Independent with activity with or without an assistive device 5 Patient requires set up or clean up by helper. Patient completes activity by themselves 4 Supervision or touching assist (CGA). [place] provide cues , steadying assist 3 The helper provides less than half the effort to complete the activity 2 The helper provides more than half the effort to complete the activity 1 Dependent. The helper does all the effort to complete an activity 7 Patient refused to complete or attempt activity 9 The patient did not perform the activity before the current illness or injury 88 Not attempted due to Medical conditions or safety concerns Grooming (FIM): 6 Upper Body (FIM): 5 Lower Body Dressing (FIM): 2 Toileting (FIM): 2 Transfers (B, C, W/C) (FIM): 4 Toilet/Commode Transfer (FIM): 4 Education OT Patient Education: Progress toward Goal/Update tx plan, Safety issues Teaching Recipient: Patient Teaching Methods: Demonstration, Discussion Response to Teaching: Verbalize Understanding, Return Demonstration, Reinforcement Needed OT Short Term Goals Short Term Goals Time Frame: Oct 28, 2016 Eating(FIM): 5 Grooming(FIM): 5 Bathing(FIM): 4 Upper Body Dressing(FIM): 5 Lower Body Dressing(FIM): 4 Toileting(FIM): 5 Transfers (B,C,W/C) (FIM): 5 Toilet/Commode Transfer(FIM): 5 Shower Transfer(FIM): 4 Additional Short Term Goals: 2-Verbalize Understanding, 3-ImproveStrength/Yimi 1=Demonstrate adherence to instructed precautions during ADL tasks. 2=Patient will verbalize/demonstrate understanding of assistive devices/ modifications for ADL. 3=Patient will improve strength/tolerance for activity to enable patient to perform ADL's. OT Custodial Goals Housing Grant Analyst Goals Time Frame: Nov 04, 2016 Eating (FIM): 6 Eating (QC): 66 Oral Hygiene (QC): 6 Grooming(FIM): 6 Bathing(FIM): 5 Shower/Bathe Self (QC): 5 Upper Body Dressing(FIM): 6 Upper Body Dressing (QC): 6 Lower Body Dressing(FIM): 6 Lower Body Dressing (QC): 6 On/Off Footwear (QC): 6 Toileting(FIM): 6 Toileting Hygiene (QC): 6 Transfers (B,C,W/C) (FIM): 6 Toilet/Commode Transfer(FIM): 6 Toilet/Commode Transfer (QC): 6 Shower Transfer(FIM): 5 Additional Goals: 1-Demonstrate ADL Tasks, 2-Verbalize Understanding, 3- ImproveStrength/Yimi 1=Demonstrate adherence to instructed precautions during ADL tasks. 2=Patient will verbalize/demonstrate understanding of assistive devices/ modifications for ADL. 3=Patient will improve strength/tolerance for activity to enable patient to perform ADL's. OT Education/Plan Discharge Recommendations Plan/Recommendations: Continue POC Treatment Plan/Plan of Care Patient would benefit from OT for education, treatment and training to promote independence in ADL's, mobility, safety and/or upper extremity function for ADL' s. Plan of Care: ADL Retraining, Functional Mobility, Group Exercise/Act as Ind, UE Funct Exercise/Act Treatment Duration: Nov 04, 2016 Visits Per Week: 10-12 Minutes/Day (M-F): 60-90 Minutes/Day (Sat/[place]): prn Agreement: Yes Rehab Potential: Good Time/GCodes Start Time: 09:00 Stop Time: 10:00 Total Time Billed (hr/min): 60 Billed Treatment Time visit, ADL 60 min JAZMIN RAMIREZ Oct 23, 2016 10:16
[2016-10-23 10:26] LABS: BASOPHILS # (AUTO) 0.1 10^3/uL (0.0-0.1); BASOPHILS % (AUTO) 1 % (0-10); EOSINOPHILS # (AUTO) 0.5 10^3/uL (0.0-0.3); EOSINOPHILS % (AUTO) 3 % (0-10); LYMPHOCYTES # (AUTO) 2.1 X 10^3 (1.0-4.0); LYMPHOCYTES % (AUTO) 12 % (12-44); MEAN CORPUSCULAR HEMOGLOBIN 28 PG (25-34); MEAN CORPUSCULAR HGB CONC 32 G/DL (32-36); MEAN CORPUSCULAR VOLUME 88 FL (80-99); MEAN PLATELET VOLUME 9.7 FL (7.4-10.4); MONOCYTES # (AUTO) 2.1 X 10^3 (0.0-1.0); MONOCYTES % (AUTO) 12 % (0-12); NEUTROPHILS # (AUTO) 12.9 X 10^3 (1.8-7.8); NEUTROPHILS % (AUTO) 73 % (42-75); PLATELET COUNT 408 10^3/uL (130-400); RED CELL DISTRIBUTION WIDTH 16.9 % (10.0-14.5); WHITE BLOOD COUNT 17.7 10^3/uL (4.3-11.0)
--- NOTE | 2016-10-23 10:34 | Consultation-Hospitalist ---
HPI History of Present Illness: HPI/Chief Complaint CC: Debility following extensive prostatectomy with diverting ileostomy surgery at [facility] on 10/13/16 HPI: This is a 66yoWM that has not seen a physician for many years and underwent extensive surgery at [facility] due to prostate CA. Dr. Biggs and Dr. Mcgowan are familiar with pt and will provide consultation services. Chart Review: WBC: 19.7 Hgb: 9.5 Dr. Carranza Review: Pt has no PCP, but was sent to by Dr. Biggs. Pt had nausea yesterday. operating room aide: RN states that Pt as ileostomy on the right, draining clear yellow urine. Pt has drainage from penis. Pt is weak on the right side. Pt does not have much control over bowels. Pt has anxiety, especially with needles. Pt is on Keflex 500 BID currently until 11/03/16 and then will switch to Cipro per DC orders from [facility] Patient Interview: Pt states that he has no PCP. Pt denies smoking and drinking excessive ETOH. Physical exam was stable. 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 Dr. Lynne informs pt that they will need to check labs due to WBC. Pt states that he hasn't eaten much since his surgery. Scribed by Thang De Leon under the direct supervision of Dr. Lynne. 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) Alcohol Use: Past History Recreational Drug Use: No Smoking Status: Current Someday Smoker Type Used: Cigars Physical Abuse Screen: No Sexual Abuse: No Recent Foreign Travel: No Contact w/other who traveled: No Recent Hopitalizations: No Recent Infectious Disease Expo: No Immunizations Up To Date Tetanus Booster (TDap): More than 5yrs Seasonal Allergies Seasonal Allergies: No Surgeries HX Surgeries: Yes (STEEL REMOVED FROM LEFT EYE) Surgeries: Adenoidectomy, Eye Surgery, Prostatectomy (10/13/16 [facility]), Tonsillectomy Respiratory Hx Respiratory Disorders: No Cardiovascular Hx Cardiovascular Disorders: No Neurological Hx Neurological Disorders: No Reproductive System Hx Reproductive Disorders: No HIV/AIDS: No Genitourinary Hx Genitourinary Disorders: Yes (BLADDER TUMOR) Gastrointestinal Hx Gastrointestinal Disorders: No Musculoskeletal Hx Musculoskeletal Disorders: Yes Musculoskeletal Disorders: Gout Endocrine Hx Endocrine Disorders: No HEENT HX ENT Disorders: Yes (GLASSES) Loss of Vision: Bilateral Hearing Impairment: Denies Cancer Hx Cancer: Yes Cancer: Prostate Psychosocial Hx Psychiatric Problems: No Integumentary HX Skin/Integumentary Disorder: No Blood Transfusions Hx Blood Disorders: No Adverse Reaction to a Blood Tr: No Family Medical History Significant Family History: No Pertinent Family Hx Family Hx: Patient reports no known family medical history. Review of Systems Constitutional: see HPI weakness EENTM: no symptoms reported Respiratory: no symptoms reported Cardiovascular: no symptoms reported Gastrointestinal: abdominal pain (RUQ) constipation loss of appetite nausea Genitourinary: decreased output Musculoskeletal: back pain Skin: no symptoms reported Psychiatric/Neurological: No Symptoms Reported All Other Systems Reviewed Negative Unless Noted: Yes Physical Exam Physical Exam Vital Signs Vital Sign - Last 12Hours 10/21/16 10/21/16 14:00 17:07 Temp 97.4 Pulse 87 Resp 18 B/P 135/74 Pulse Ox 98 O2 Delivery Room Air Capillary Refill : Less Than 3 Seconds General Appearance: No Apparent Distress WD/WN Chronically ill Thin Eyes: Bilateral Eye Normal Inspection, Bilateral Eye PERRL HEENT: PERRL/EOMI Normal ENT Inspection Pharynx Normal Neck: Full Range of Motion Normal Inspection Non Tender Supple Carotid Bruit Respiratory: Chest Non Tender Lungs Clear Normal Breath Sounds No Accessory Muscle Use No Respiratory Distress Cardiovascular: Regular Rate, Rhythm No Edema No Gallop No JVD No Murmur Normal Peripheral Pulses Gastrointestinal: Normal Bowel Sounds No Organomegaly No Pulsatile Mass Non Tender Soft Back: Normal Inspection No CVA Tenderness No Vertebral Tenderness Other ( diverting ileostomy right) Extremity: Normal Capillary Refill Normal Inspection Normal Range of Motion Non Tender No Calf Tenderness No Pedal Edema Neurologic/Psychiatric: Alert Oriented x3 No Motor/Sensory Deficits Normal Mood/Affect Skin: Normal Color Warm/Dry Lymphatic: No Adenopathy Results Results/Procedures Lab Laboratory Tests 10/22/16 05:50 10/23/16 10:19 Assessment/Plan Admission Diagnosis Assessment: Extensive prostate CA s/p resection with cystectomy with diverting ileostomy on 10/13/16 POD # 10 Leukocytosis likely related to acute illness. Hypokalemia at 3.4, will begin supplement. Fear of needles Right side weakness following surgery likely neuropathy of some type Assessment and Plan Plan: Check labs due to leukocytosis on admission K+ supplement Antibiotic per [facility] orders of Keflex twice a day than switching to Cipro on . Clinical Quality Measures DVT/VTE Risk/Contraindication: Risk Factor Score Per Nursin RFS Level Per Nursing on Admit: 4+=Very High SADAF LYNNE DO Oct 23, 2016 10:34
[2016-10-23 10:51] LABS: ALBUMIN 2.9 G/DL (3.2-4.5); BILIRUBIN,TOTAL 0.2 MG/DL (0.1-1.0); CREATININE SERUM 1.33 MG/DL (0.60-1.30); POTASSIUM 3.8 MMOL/L (3.6-5.0); TOTAL PROTEIN 5.8 G/DL (6.4-8.2)
--- NOTE | 2016-10-23 11:57 | Physical Therapy Daily Note ---
PT Daily Note-Current Subjective Patient in bed pre tx, agrees to PT, is very anxious about his strength and falling. Pain Numeric Pain Scale: 2 Appearance Patient BTB post tx with nurse call, phone, tray, all needs met. Mental Status Patient Orientation: Normal For Age urinary catheter Transfers Functional [place] Measure 0=Not Assessed/NA 4=Minimal Assistance 1=Total Assistance 5=Supervision or Setup 2=Maximal Assistance 6=Modified [place] 3=Moderate Assistance 7=Complete IndependenceIRFPAI Quality Coding Scale 6 Independent with activity with or without an assistive device 5 Patient requires set up or clean up by helper. Patient completes activity by themselves 4 Supervision or touching assist (CGA). [place] provide cues , steadying assist 3 The helper provides less than half the effort to complete the activity 2 The helper provides more than half the effort to complete the activity 1 Dependent. The helper does all the effort to complete an activity 7 Patient refused to complete or attempt activity 9 The patient did not perform the activity before the current illness or injury 88 Not attempted due to Medical conditions or safety concerns Transfers (B, C, W/C) (FIM): 4 Scootin Rollin Supine to/from Sit: 5 Sit to/from Stand: 4 Patient was able to sit to supine with SBA both ways, cues for safety and hand placement Gait Training Gait (FIM): 4 Distance: 150', 100' Gait Level of Assist: 4 Gait Persons Needed: 1 Gait Assistive Device: FWW Slow ambulation, patient very anxious about his left knee collapsing. Exercises Standing: Hip Abduction, Heel/toe raises, Mini squats Standing Reps: 20 NuStep Minutes: 15 NuStep Workload: 5 Treatments bed mobility and transfers, ambulation, functional strengthening Assessment Current Status: Fair Progress better mobility in general, but patient does fatigue easily and needs frequent rest breaks PT Short Term Goals Short Term Goals Time Frame: Oct 28, 2016 Transfers (B,C,W/C) (FIM): 5 Gait (FIM): 5 Distance (FIM): 3=150 ft Gait Assistive Device: FWW PT [facility] Goals [facility] Goals PT [facility] Goals Time Frame: Nov 06, 2016 Transfers (B,C,W/C) (FIM): 6 Sit to Lying (QC): 6 Lying-Sitting on Side/Bed(QC): 6 Sit to Stand (QC): 6 Rollin Roll Left to Right (QC): 6 Chair/Yvz-fb-Hjpfz Xfer(QC): 6 Car Transfer (QC): 6 Does the Patient Walk: Yes Gait (FIM): 6 Gait distance (FIM): 3=150 ft Distance: >150 ft Walk 10 feet (QC): 6 Walk 10ft-Uneven Surface(QC): 6 Walk 50ft with 2 Turns (QC): 6 Walk 150 ft (QC): 6 Gait Level of Assist: 6 Gait Assistive Device: Cane Single Point Does the Pt use WC or Scooter?: No Stairs (FIM): 6 # of Steps: 12 1 Step (curb) (QC): 6 4 Steps (QC): 6 12 Steps (QC): 6 Stairs Level Of Assist: 6 Picking up an Object (QC): 5 PT Plan Problem List Problem List: Activity Tolerance, Functional Strength, Safety, Balance, Gait, Transfer, Bed Mobility Treatment/Plan Treatment Plan: Continue Plan of Care Treatment Plan: Bed Mobility, Education, Functional Activity Yimi, Functional Strength, Group Therapy, Gait, Safety, Therapeutic Exercise, Transfers Treatment Duration: Nov 06, 2016 Visits Per Week: 10-15 Minutes/Day (M-F): 60-90 Minutes/Day (Sat/[place]): prn Safety Risks/Education Patient Education: Gait Training, Transfer Techniques, Safety Issues Teaching Recipient: Patient Teaching Methods: Demonstration, Discussion Response to Teaching: Reinforcement Needed Time/GCodes Time In: 1100 Time Out: 1200 Total Billed Treatment Time: 60 Total Billed Treatment 1 visit GT 30 min EX 30 min AMBER EWING PT Oct 23, 2016 11:57
--- NOTE | 2016-10-23 15:02 | Therapy Group Daily Note ---
Therapy Daily Group Note Patient Education Topic Other List Below (breathing) Exercises Other (Using music to facilitate relazation;Importance of relaxation for healing ) Other/Notes Pt ambulated to therapy DIPTI barron, FILIPE, FWW. Pt participated in socialization by introducing self, place of living, what tools used for relaxation. Guest speaker from [facility] introduced instrument (shakuhachi-Italian flute) for example of relaxation technique. Pt was asked to give examples of the type of music likes to listen and relax too. Pt contributed to conversations and appropriately answered questions. Pt ambulated back to room, FILIPE, VASUW. Pt sitting EOB in room, call light/phone in reach. All needs met. Start Time: 13:00 Stop Time: 14:15 Total Billed Treatment Time: 75 Total Billed Treatment 1-GRP JAZMIN RAMIREZ Oct 23, 2016 15:02
[2016-10-23] MEDS: ENOXAPARIN 40 MG/0.4 ML (LOVENOX) SYR SC SCH (15:45)
[2016-10-23 17:16] VITALS: BP 114/71
[2016-10-24] MEDS: KCL 10 MEQ TAB (MICRO K) PO SCH (06:02)
[2016-10-24] MEDS: ALPRAZolam 0.5 MG (XANAX) TAB PO PRN ×2 (06:02→17:02)
[2016-10-24] MEDS: ACETAMINOPHEN 500 MG TAB (TYLENOL) PO PRN (06:03)
--- NOTE | 2016-10-24 06:30 | CONSULTATION REPORT ---
DATE OF CONSULTATION: 10/23/2016 REFERRING PHYSICIAN: Dr. Mccauley The patient is admitted to Room 224. IMPRESSION: 1. 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 He completed a cystoprostatectomy on 10/13/2016 at [facility]. 2. Pathologic T2a, pathologic N0, clinical MX high-grade transitional cell carcinoma of the bladder which invades the superficial muscularis propria following cystoprostatectomy. Out of 63 lymph nodes examined, 4 of the lymph nodes had treatment effect. 3. Incidental finding of pathologic T2a, Jay grade 3+3=6, adenocarcinoma of the prostate with no evidence of extraprostatic extension. 4. Left lower extremity weakness related to surgery/anesthesia, clinically improving with physical therapy. RECOMMENDATIONS: 1. Continue physical and occupational therapy to improve the left lower extremity weakness and discharge when stable. 2. The patient does not need additional chemotherapy now as he has had an excellent response to the neoadjuvant chemotherapy. I will discuss this with Dr. Muller at [facility] in the next few weeks. The patient was instructed to keep appointment with Dr. Muller in 2 weeks. 3. With regard to the prostate cancer, he does not need any other treatment at this point and we will continue surveillance. 4. I will obtain a restaging baseline scan once he is stable from the surgery and rehab in the next few weeks and then follow him serially. 5. Please schedule a [facility] the end of October 2016 for an office visit. 6. Mild renal insufficiency. Continue to monitor serially. 7. I will follow the patient indefinitely while in the hospital. Call for any acute problems. BRIEF HISTORY: Mr. Aguilar is 66-year-old male who was diagnosed with a high grade stage IV bladder cancer with radiologic evidence of lymph node metastasis. He was started on neoadjuvant chemotherapy with cis-[place] and gemcitabine in June 2016 and completed this in August 1016. Since then, he completed the cystoprostatectomy at [facility] with results as mentioned above. He had left hydronephrosis at the time of diagnosis and required left ureteral stent placements. Postoperatively he developed left lower extremity numbness and weakness, which is improving with physical therapy. PAST MEDICAL HISTORY: Is unremarkable prior to the diagnosis of bladder cancer. He has not had regular follow-up with a physician for routine medical care. PREVIOUS SURGERIES: Included: 1. Tonsillectomy and adenoidectomy in childhood. 2. Eye surgery to removal to remove a piece of metal. SOCIAL HISTORY: The patient is and lives in [place], [place]. He has 2 children, a son and a daughter both of whom live in the [place]. 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 He smoked a few cigars per day for 35 years and quit in mid 2015. His father was diagnosed with colon cancer while in his late 70s. Both his father and paternal grandfather had CAD. PHYSICAL EXAMINATION: Showed an elderly male, well-developed and nourished, awake, and oriented and does not appear acute distress. VITAL SIGNS: Temperature was 97.9 pulse of 80, respirations 20, blood pressure 137/71, pulse oximetry showed 96% oxygen saturation on room air. HEENT: Normocephalic, conjunctivae pink, oral mucosa moist. NECK: Supple with no JVD. No cervical, supraclavicular, or axillary lymphadenopathy palpable. CHEST: Chest was symmetrical. LUNGS: Clear to auscultation without wheezes or rales. CARDIOVASCULAR EXAM: Regular in rate and rhythm. No murmurs or gallops heard. ABDOMINAL EXAM: Showed a right lower quadrant diverting ileostomy present draining ney-colored urine. Left lower quadrant - healing incision from drain site with slight serous drainage. No erythema noted. Deep palpation was not done. EXTREMITIES: Showed no edema. NEUROLOGICAL EXAM: Significant for motor strength of 4/5 on the left lower extremity with all the other extremities being normal at 5/5. Decrease in light touch sensation in the left lower extremity. LABORATORY: CBC done today showed WBC 17.7, hemoglobin 10.3, platelet count of 408,000 and neutrophil count of 12.9, lymphocyte count of 2.1, monocyte count of 2.1, and eosinophil count of 0.5. Chemistry panel showed sodium level of 133 with the rest of the electrolytes normal. BUN was 20 and creatinine 1.33 with GFR of 53 mL per minute. AST was minimally elevated at 40 and albumin below normal at 2.9 with the rest of the liver function studies normal. I reviewed the pathology report from the cystoprostatectomy done on 10/13/2016 at [facility]. This showed residual high-grade transitional cell carcinoma invading superficial muscularis propria. There is extensive treatment effect noted. 63 total lymph nodes were removed with 4 of the lymph nodes showing treatment effect and all the lymph nodes were negative for metastatic disease. Incidental finding of adenocarcinoma of the prostate limited to 1/2 of 1 side or less which was Jay grade 3+3=6. No extraprostatic extension noted. All margins of resection were negative. Questionable lymphovascular invasion noted. Thank you for allowing me to participate in this patient's care. I will follow the patient with you and make appropriate recommendations. Job ID: [id number] Dictated Date: 10/23/2016 15:03:55 Air Brakes Inspector Date: 10/24/2016 06:02:55/william FREEMAN
[2016-10-24 06:44] VITALS: BP 124/73
[2016-10-24] MEDS: SENNA W/DOCUSATE (SENOKOT S) TABLET PO SCH ×2 (08:33→20:50)
[2016-10-24] MEDS: CEPHALEXIN 250 MG (KEFLEX) CAP PO SCH ×2 (08:33→20:49)
--- NOTE | 2016-10-24 12:02 | Physical Therapy Daily Note ---
PT Daily Note-Current Subjective Pt. agrees to rx. Spoke at length about his business and was emotional talking about his medical condition but states he is determined to beat it. Pain Numeric Pain Scale: 0-No Pain Mental Status Patient Orientation: Normal For Age Transfers Functional [place] Measure 0=Not Assessed/NA 4=Minimal Assistance 1=Total Assistance 5=Supervision or Setup 2=Maximal Assistance 6=Modified [place] 3=Moderate Assistance 7=Complete IndependenceIRFPAI Quality Coding Scale 6 Independent with activity with or without an assistive device 5 Patient requires set up or clean up by helper. Patient completes activity by themselves 4 Supervision or touching assist (CGA). [place] provide cues , steadying assist 3 The helper provides less than half the effort to complete the activity 2 The helper provides more than half the effort to complete the activity 1 Dependent. The helper does all the effort to complete an activity 7 Patient refused to complete or attempt activity 9 The patient did not perform the activity before the current illness or injury 88 Not attempted due to Medical conditions or safety concerns Transfers (B, C, W/C) (FIM): 5 Scootin Rollin Supine to/from Sit: 5 Sit to/from Stand: 6 Bed to/from Chair: 5 Gait Training Does the Patient Walk?: Yes Gait (FIM): 5 Distance (FIM): 3=150 ft (175x2) Gait Level of Assist: 5 Gait Persons Needed: 1 Exercises Supine Ex: Heel Slides, Hip abd/add Supine Reps: 10 Seated Therapy Exercises: Ankle pumps, Sit to stand, Long arc quads, Hip flexion Seated Reps: 10 NuStep Minutes: 10 NuStep Workload: 3 Assessment Current Status: Good Progress PT Short Term Goals Short Term Goals Time Frame: Oct 28, 2016 Transfers (B,C,W/C) (FIM): 5 Gait (FIM): 5 Distance (FIM): 3=150 ft Gait Assistive Device: FWW PT [facility] Goals Steward/Stewardess [employer] Goals PT [facility] Goals Time Frame: Nov 06, 2016 Transfers (B,C,W/C) (FIM): 6 Sit to Lying (QC): 6 Lying-Sitting on Side/Bed(QC): 6 Sit to Stand (QC): 6 Rollin Roll Left to Right (QC): 6 Chair/Tki-oc-Nllql Xfer(QC): 6 Car Transfer (QC): 6 Does the Patient Walk: Yes Gait (FIM): 6 Gait distance (FIM): 3=150 ft Distance: >150 ft Walk 10 feet (QC): 6 Walk 10ft-Uneven Surface(QC): 6 Walk 50ft with 2 Turns (QC): 6 Walk 150 ft (QC): 6 Gait Level of Assist: 6 Gait Assistive Device: Cane Single Point Does the Pt use WC or Scooter?: No Stairs (FIM): 6 # of Steps: 12 1 Step (curb) (QC): 6 4 Steps (QC): 6 12 Steps (QC): 6 Stairs Level Of Assist: 6 Picking up an Object (QC): 5 PT Plan Treatment/Plan Treatment Plan: Continue Plan of Care Treatment Plan: Bed Mobility, Education, Functional Activity Yimi, Functional Strength, Group Therapy, Gait, Safety, Therapeutic Exercise, Transfers Treatment Duration: Nov 06, 2016 Visits Per Week: 10-15 Minutes/Day (M-F): 60-90 Minutes/Day (Sat/[place]): prn Safety Risks/Education Patient Education: Gait Training, Transfer Techniques, Correct Positioning, Safety Issues Teaching Recipient: Patient Teaching Methods: Demonstration, Discussion Response to Teaching: Verbalize Understanding, Return Demonstration, Reinforcement Needed Time/GCodes Time In: 1045 Time Out: 1130 Total Billed Treatment Time: 45 Total Billed Treatment 1,FA25m,EX20m G Codes Necessary: FLY Merchant PTA Oct 24, 2016 12:02
[2016-10-24] MEDS: ENOXAPARIN 40 MG/0.4 ML (LOVENOX) SYR SC SCH (16:59)
[2016-10-24 18:03] VITALS: BP 120/66
[2016-10-25] MEDS: ALPRAZolam 0.5 MG (XANAX) TAB PO PRN ×3 (01:21→21:32)
[2016-10-25 05:51] VITALS: BP 119/72
[2016-10-25] MEDS: KCL 10 MEQ TAB (MICRO K) PO SCH (06:43)
[2016-10-25] MEDS: CEPHALEXIN 250 MG (KEFLEX) CAP PO SCH ×2 (10:01→21:31)
[2016-10-25] MEDS: SIMETHICONE 80 MG (MYLICON) CHEW PO PRN (10:01)
[2016-10-25] MEDS: SENNA W/DOCUSATE (SENOKOT S) TABLET PO SCH ×2 (10:01→21:00)
[2016-10-25] MEDS: ENOXAPARIN 40 MG/0.4 ML (LOVENOX) SYR SC SCH (17:10)
[2016-10-25 18:04] VITALS: BP 138/75
[2016-10-26 05:19] VITALS: BP 120/73
[2016-10-26] MEDS: KCL 10 MEQ TAB (MICRO K) PO SCH (06:09)
[2016-10-26] MEDS: CEPHALEXIN 250 MG (KEFLEX) CAP PO SCH ×2 (07:59→20:42)
[2016-10-26] MEDS: SENNA W/DOCUSATE (SENOKOT S) TABLET PO SCH ×2 (07:59→20:43)
--- NOTE | 2016-10-26 10:51 | Progress Note-Hospitalist ---
Progress Note HPI/CC on Admission CC: Debility following extensive prostatectomy with diverting ileostomy surgery at [facility] on 10/13/16 HPI: This is a 66yoWM that has not seen a physician for many years and underwent extensive surgery at [facility] due to prostate CA. Dr. Biggs and Dr. Mcgowan are familiar with pt and will provide consultation services. Chart Review: WBC: 19.7 Hgb: 9.5 Dr. Carranza Review: Pt has no PCP, but was sent to by Dr. Biggs. Pt had nausea yesterday. claims service adjustor: RN states that Pt as ileostomy on the right, draining clear yellow urine. Pt has drainage from penis. Pt is weak on the right side. Pt does not have much control over bowels. Pt has anxiety, especially with needles. Pt is on Keflex 500 BID currently until 11/03/16 and then will switch to Cipro per DC orders from [facility] Patient Interview: Pt states that he has no PCP. Pt denies smoking and drinking excessive ETOH. Physical exam was stable. 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 Dr. Lynne informs pt that they will need to check labs due to WBC. Pt states that he hasn't eaten much since his surgery. Scribed by Thang De Leon under the direct supervision of Dr. Lynne. Progress Notes/Assess & Plan Date Seen 10/26/16 Admission Dx/Process Assessment: Extensive prostate CA s/p resection with cystectomy with diverting ileostomy on 10/13/16 POD # 10 Leukocytosis likely related to acute illness. Hypokalemia at 3.4, will begin supplement. Fear of needles Right side weakness following surgery likely neuropathy of some type Diagonsis/Assessment & Plan Chart Review: No fever Vitals stable Patient Interview: Pt states that he feels very good today. Pt states that his left leg is weak, but that it feels better. Pt states that he does not need speech therapy. Pt states that his bowels are moving, and he has more control. Physical exam was stable. no fever vital signs stable, pleasant, talkative, oriented 3 Regular in rhythm, clear to auscultation bilaterally No edema and normal range of motion except left leg weakness Assessment: Extensive prostate CA s/p resection with cystectomy with diverting ileostomy on 10/13/16 POD # 13 Leukocytosis likely related to acute illness. Hypokalemia at 3.4, will begin supplement. Fear of needles Right side weakness following surgery likely neuropathy of some type Scribed by Thang De Leon under the direct supervision of Dr. Lynne. Plan: K+ supplement Antibiotic per med orders of Keflex twice a day than switching to Cipro on . Continue therapy for leg weakness. SADAF LYNNE DO Oct 26, 2016 10:51
--- NOTE | 2016-10-26 11:21 | Occupational Ther Daily Note ---
OT Current Status-Daily Note Subjective Pt in bathroom. No pain mentioned. Agreeable to OT. Appearance Alert, cooperative, very talkative Mental Status/Objective Functional [place] Measure 0=Not Assessed/NA 4=Minimal Assistance 1=Total Assistance 5=Supervision or Setup 2=Maximal Assistance 6=Modified [place] 3=Moderate Assistance 7=Complete [place] ADL-Treatment Pt declined a shower but agreed to a sponge bath. While sitting on toilet pt doffed pajama pants without help. Pt stood FWW for balance, but needed help wiping due to diarrhea. Pt walked in front of sink, FWW, SBA. Pt sat in front of sink to doff shirt, slipper socks without help. Pt washed/dried all other parts including feet, sponge bath. Brushed teeth and combed hair setup, seated at sink. Pt donned shirt, pajama pants while sitting in front of sink, setup and supervision, FWW. Pt walked to recliner where he donned slipper socks setup ( pt declined using dressing stick or sock aid to assist donning and doffing slipper socks). Pt ambulated to gym, FWW, SBA. Using arm bike10 min 15 [place] for arm strengthening for transfers. Pt walked back to room, FWW, SBA. Pt left sitting in recliner, call light in reach. All needs mets. Functional [place] Measure 0=Not Assessed/NA 4=Minimal Assistance 1=Total Assistance 5=Supervision or Setup 2=Maximal Assistance 6=Modified [place] 3=Moderate Assistance 7=Complete IndependenceIRFPAI Quality Coding Scale 6 Independent with activity with or without an assistive device 5 Patient requires set up or clean up by helper. Patient completes activity by themselves 4 Supervision or touching assist (CGA). [place] provide cues , steadying assist 3 The helper provides less than half the effort to complete the activity 2 The helper provides more than half the effort to complete the activity 1 Dependent. The helper does all the effort to complete an activity 7 Patient refused to complete or attempt activity 9 The patient did not perform the activity before the current illness or injury 88 Not attempted due to Medical conditions or safety concerns Grooming (FIM): 5 Bathing (FIM): 4 Bathing Location: L Arm, R Arm, L Upper Leg, R Upper Leg, L Lower Leg ( including foot), R Lower Leg (including foot), Chest, Abdomen Upper Body (FIM): 5 Lower Body Dressing (FIM): 5 Toileting (FIM): 3 Transfers (B, C, W/C) (FIM): 5 Toilet/Commode Transfer (FIM): 5 Education OT Patient Education: Exercise program, Modified ADL techniques, Use of adapted equipment Teaching Recipient: Patient Teaching Methods: Demonstration, Discussion Response to Teaching: Verbalize Understanding, Return Demonstration OT Short Term Goals Short Term Goals Time Frame: Oct 28, 2016 Eating(FIM): 5 Grooming(FIM): 5 Bathing(FIM): 4 Upper Body Dressing(FIM): 5 Lower Body Dressing(FIM): 4 Toileting(FIM): 5 Transfers (B,C,W/C) (FIM): 5 Toilet/Commode Transfer(FIM): 5 Shower Transfer(FIM): 4 Additional Short Term Goals: 2-Verbalize Understanding, 3-ImproveStrength/Yimi 1=Demonstrate adherence to instructed precautions during ADL tasks. 2=Patient will verbalize/demonstrate understanding of assistive devices/ modifications for ADL. 3=Patient will improve strength/tolerance for activity to enable patient to perform ADL's. OT [facility] Goals Dimmer Board Operator Goals Time Frame: Nov 04, 2016 Eating (FIM): 6 Eating (QC): 66 Oral Hygiene (QC): 6 Grooming(FIM): 6 Bathing(FIM): 5 Shower/Bathe Self (QC): 5 Upper Body Dressing(FIM): 6 Upper Body Dressing (QC): 6 Lower Body Dressing(FIM): 6 Lower Body Dressing (QC): 6 On/Off Footwear (QC): 6 Toileting(FIM): 6 Toileting Hygiene (QC): 6 Transfers (B,C,W/C) (FIM): 6 Toilet/Commode Transfer(FIM): 6 Toilet/Commode Transfer (QC): 6 Shower Transfer(FIM): 5 Additional Goals: 1-Demonstrate ADL Tasks, 2-Verbalize Understanding, 3- ImproveStrength/Yimi 1=Demonstrate adherence to instructed precautions during ADL tasks. 2=Patient will verbalize/demonstrate understanding of assistive devices/ modifications for ADL. 3=Patient will improve strength/tolerance for activity to enable patient to perform ADL's. OT Education/Plan Discharge Recommendations Plan/Recommendations: Continue POC Treatment Plan/Plan of Care Patient would benefit from OT for education, treatment and training to promote independence in ADL's, mobility, safety and/or upper extremity function for ADL' s. Plan of Care: ADL Retraining, Functional Mobility, Group Exercise/Act as Ind, UE Funct Exercise/Act Treatment Duration: Nov 04, 2016 Visits Per Week: 10-12 Minutes/Day (M-F): 60-90 Minutes/Day (Sat/[place]): prn Agreement: Yes Rehab Potential: Good Time/GCodes Start Time: 09:30 Stop Time: 10:30 Total Time Billed (hr/min): 60 Billed Treatment Time visit, ADL45, EX 15 min GRICELDA CUBA OT Oct 26, 2016 11:21
[2016-10-26] MEDS: ALPRAZolam 0.5 MG (XANAX) TAB PO PRN ×2 (11:47→20:43)
--- NOTE | 2016-10-26 13:00 | Physical Therapy Daily Note ---
PT Daily Note-Current Subjective Pt sitting in recliner upon arrival. Pt reports feeling stronger today. Pt agrees to PT. Pain Numeric Pain Scale: 3 Location: Dorsal Location Body Site: Knee Pain Description: Ache, Burning Mental Status Patient Orientation: Person, Place, Time, Situation Attachments: Scott Catheter Transfers Functional [place] Measure 0=Not Assessed/NA 4=Minimal Assistance 1=Total Assistance 5=Supervision or Setup 2=Maximal Assistance 6=Modified [place] 3=Moderate Assistance 7=Complete IndependenceIRFPAI Quality Coding Scale 6 Independent with activity with or without an assistive device 5 Patient requires set up or clean up by helper. Patient completes activity by themselves 4 Supervision or touching assist (CGA). [place] provide cues , steadying assist 3 The helper provides less than half the effort to complete the activity 2 The helper provides more than half the effort to complete the activity 1 Dependent. The helper does all the effort to complete an activity 7 Patient refused to complete or attempt activity 9 The patient did not perform the activity before the current illness or injury 88 Not attempted due to Medical conditions or safety concerns Scootin Sit to/from Stand: 6 Weight Bearing Weight Bearing Restriction: Full Weight Bearing Location Restriction: LE Bilateral Gait Training Does the Patient Walk?: Yes Distance (FIM): 3=150 ft Distance: 150' Gait Level of Assist: 5 Gait Persons Needed: 1 Gait Assistive Device: FWW Pt fatigues easy but has normalized gait pattern with no LOB. Exercises NuStep Minutes: 10 NuStep Workload: 5 Treatments Pt needed Scott bag emptied and wanted an Anxiety med before leaving for tx. Pt transferred from recliner using FWW at [facility]. Pt ambulated to Therapy Gym using FWW at [facility]. Pt used NuStep for 10m at Workload 5. Pt then transferred to standing using FWW at [facility] and ambulated in hallway before returning to room to rest and have his chocolate shake that was waiting on him. Pt was left with all needs met at end of tx. Assessment Current Status: Good Progress Pt is having increased movement and sensation on LLE. Pt is able to walk and transfer more independently. PT Short Term Goals Short Term Goals Time Frame: Oct 28, 2016 Transfers (B,C,W/C) (FIM): 5 Gait (FIM): 5 Distance (FIM): 3=150 ft Gait Assistive Device: FWW PT [place] Goals [place] Goals PT [facility] Goals Time Frame: Nov 06, 2016 Transfers (B,C,W/C) (FIM): 6 Sit to Lying (QC): 6 Lying-Sitting on Side/Bed(QC): 6 Sit to Stand (QC): 6 Rollin Roll Left to Right (QC): 6 Chair/Hdk-fc-Lbgeb Xfer(QC): 6 Car Transfer (QC): 6 Does the Patient Walk: Yes Gait (FIM): 6 Gait distance (FIM): 3=150 ft Distance: >150 ft Walk 10 feet (QC): 6 Walk 10ft-Uneven Surface(QC): 6 Walk 50ft with 2 Turns (QC): 6 Walk 150 ft (QC): 6 Gait Level of Assist: 6 Gait Assistive Device: Cane Single Point Does the Pt use WC or Scooter?: No Stairs (FIM): 6 # of Steps: 12 1 Step (curb) (QC): 6 4 Steps (QC): 6 12 Steps (QC): 6 Stairs Level Of Assist: 6 Picking up an Object (QC): 5 PT Plan Problem List Problem List: Activity Tolerance, Functional Strength, Gait Treatment/Plan Treatment Plan: Continue Plan of Care Treatment Plan: Bed Mobility, Education, Functional Activity Yimi, Functional Strength, Group Therapy, Gait, Safety, Therapeutic Exercise, Transfers Treatment Duration: Nov 06, 2016 Visits Per Week: 10-15 Minutes/Day (M-F): 60-90 Minutes/Day (Sat/[place]): prn Safety Risks/Education Patient Education: Gait Training, Transfer Techniques, Correct Positioning, Safety Issues Teaching Recipient: Patient Teaching Methods: Discussion Response to Teaching: Verbalize Understanding Time/GCodes Time In: 1130 Time Out: 1215 Total Billed Treatment Time: 45 Total Billed Treatment visit, FA (15m), EX (15m) & GT (15m) JESUS BENNETT PTA Oct 26, 2016 13:00
--- NOTE | 2016-10-26 14:03 | PM & R (SOAP) Progress Note ---
Subjective Subjective/Events-last exam Patient was seen in Gym this afternoon.Progressing well with therapies K replaced and K normalized Current labs and therapy and DR Lerma notes reviewed. Objective Exam Last Set of Vital Signs Vital Signs Date Time Temp Pulse Resp B/P Pulse Ox O2 Delivery O2 Flow Rate FiO2 10/26/16 09:00 Room Air 10/26/16 05:19 98.3 83 16 120/73 95 Capillary Refill : Less Than 3 Seconds I&O Intake and Output 10/26/16 00:00 Intake Total 900 ml Output Total 1300 ml Balance -400 ml Intake Oral 900 ml Output Urine Total 1300 ml # Bowel Movements 1 General: Alert, Oriented X3, Cooperative, No Acute Distress HEENT: Atraumatic, PERRLA, EOMI, Mucous Memb Moist/[place] Neck: Supple, No JVD Lungs: Clear to Auscultation Heart: Regular Rate Abdomen: Normal Bowel Sounds, Other (Mildly distended and tender Ileoconduit functioning) Assessment/Plan Assessment S/P ileoconduit for bladder Cawith mets s/p surgery [facility] Nausea multifactorial DVT prophylaxis -Lovenix Sub Cut 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
--- NOTE | 2016-10-26 14:28 | Occupational Ther Daily Note ---
OT Current Status-Daily Note Subjective Pt lying in bed. No pain mentioned. Agreeable to OT. Appearance Very talkative, alert, cooperative Mental Status/Objective Functional [place] Measure 0=Not Assessed/NA 4=Minimal Assistance 1=Total Assistance 5=Supervision or Setup 2=Maximal Assistance 6=Modified [place] 3=Moderate Assistance 7=Complete [place] ADL-Treatment Pt scooted to EOB bed without any help. Pt walked to bathroom, FWW, SBA. Pt used grab bars to lower self to toilet, SBA. Pt managed clothing but not hygiene. Pt walked to gym FWW, SBA. Pt used 3# hand held weight for various exercises working on shoulder, elbow strengthening, 15 reps, 2 sets. Pt walked back to room, FWW, SBA. Pt siting at EOB. Call light in reach. All needs met. Functional [place] Measure 0=Not Assessed/NA 4=Minimal Assistance 1=Total Assistance 5=Supervision or Setup 2=Maximal Assistance 6=Modified [place] 3=Moderate Assistance 7=Complete IndependenceIRFPAI Quality Coding Scale 6 Independent with activity with or without an assistive device 5 Patient requires set up or clean up by helper. Patient completes activity by themselves 4 Supervision or touching assist (CGA). [place] provide cues , steadying assist 3 The helper provides less than half the effort to complete the activity 2 The helper provides more than half the effort to complete the activity 1 Dependent. The helper does all the effort to complete an activity 7 Patient refused to complete or attempt activity 9 The patient did not perform the activity before the current illness or injury 88 Not attempted due to Medical conditions or safety concerns Toileting (FIM): 3 Transfers (B, C, W/C) (FIM): 5 Toilet/Commode Transfer (FIM): 5 Education OT Patient Education: Exercise program, Progress toward Goal/Update tx plan Teaching Recipient: Patient Teaching Methods: Demonstration, Discussion Response to Teaching: Verbalize Understanding, Return Demonstration OT Short Term Goals Short Term Goals Time Frame: Oct 28, 2016 Eating(FIM): 5 Grooming(FIM): 5 Bathing(FIM): 4 Upper Body Dressing(FIM): 5 Lower Body Dressing(FIM): 4 Toileting(FIM): 5 Transfers (B,C,W/C) (FIM): 5 Toilet/Commode Transfer(FIM): 5 Shower Transfer(FIM): 4 Additional Short Term Goals: 2-Verbalize Understanding, 3-ImproveStrength/Yimi 1=Demonstrate adherence to instructed precautions during ADL tasks. 2=Patient will verbalize/demonstrate understanding of assistive devices/ modifications for ADL. 3=Patient will improve strength/tolerance for activity to enable patient to perform ADL's. OT Bulk Coolers Installer Goals [place] Goals Time Frame: Nov 04, 2016 Eating (FIM): 6 Eating (QC): 66 Oral Hygiene (QC): 6 Grooming(FIM): 6 Bathing(FIM): 5 Shower/Bathe Self (QC): 5 Upper Body Dressing(FIM): 6 Upper Body Dressing (QC): 6 Lower Body Dressing(FIM): 6 Lower Body Dressing (QC): 6 On/Off Footwear (QC): 6 Toileting(FIM): 6 Toileting Hygiene (QC): 6 Transfers (B,C,W/C) (FIM): 6 Toilet/Commode Transfer(FIM): 6 Toilet/Commode Transfer (QC): 6 Shower Transfer(FIM): 5 Additional Goals: 1-Demonstrate ADL Tasks, 2-Verbalize Understanding, 3- ImproveStrength/Yimi 1=Demonstrate adherence to instructed precautions during ADL tasks. 2=Patient will verbalize/demonstrate understanding of assistive devices/ modifications for ADL. 3=Patient will improve strength/tolerance for activity to enable patient to perform ADL's. OT Education/Plan Discharge Recommendations Plan/Recommendations: Continue POC Treatment Plan/Plan of Care Patient would benefit from OT for education, treatment and training to promote independence in ADL's, mobility, safety and/or upper extremity function for ADL' s. Plan of Care: ADL Retraining, Functional Mobility, Group Exercise/Act as Ind, UE Funct Exercise/Act Treatment Duration: Nov 04, 2016 Visits Per Week: 10-12 Minutes/Day (M-F): 60-90 Minutes/Day (Sat/[place]): prn Agreement: Yes Rehab Potential: Good Time/GCodes Start Time: 13:00 Stop Time: 13:30 Total Time Billed (hr/min): 30 Billed Treatment Time visit, EX 25 min, ADL 5 min GRICELDA CUBA OT Oct 26, 2016 14:28
--- NOTE | 2016-10-26 14:32 | Physical Therapy Daily Note ---
PT Daily Note-Current Subjective Pt is supine in bed upon arrival. Pt reports feeling tired and couldn't stand sitting up in recliner any longer so asked to go to bed. Pt agrees to PT. Pain Numeric Pain Scale: 4 Location: Incisional Location Body Site: Abdomen Pain Description: Ache Mental Status Patient Orientation: Person, Normal For Age Attachments: Scott Catheter Transfers Functional [place] Measure 0=Not Assessed/NA 4=Minimal Assistance 1=Total Assistance 5=Supervision or Setup 2=Maximal Assistance 6=Modified [place] 3=Moderate Assistance 7=Complete IndependenceIRFPAI Quality Coding Scale 6 Independent with activity with or without an assistive device 5 Patient requires set up or clean up by helper. Patient completes activity by themselves 4 Supervision or touching assist (CGA). [place] provide cues , steadying assist 3 The helper provides less than half the effort to complete the activity 2 The helper provides more than half the effort to complete the activity 1 Dependent. The helper does all the effort to complete an activity 7 Patient refused to complete or attempt activity 9 The patient did not perform the activity before the current illness or injury 88 Not attempted due to Medical conditions or safety concerns Scootin Supine to/from Sit: 6 Exercises Supine Ex: Bridging, Ankle pumps, Quad Set, Glut sets, Heel Slides, Scooting, Straight leg raise, Hip abd/add Supine Reps: 20 Treatments Pt felt too low in the bed so PT assisted pt by lowering the head of the bed to allow pt to bridge and scoot self back up in the bed. PT then raised head again. Pt completed supine Ex in bed with several rest breaks due to fatigue in legs. Pt has some weakness during some EX and required PT assistance (dianna. during HS). Pt also wanted to discuss what it might take to discharge and how long. Pt informed that the Wednesday Team Meeting would give us a better idea of what the whole picture looks like instead of just what PT sees during tx. Pt was left with all needs met at end of tx. Assessment Current Status: Fair Progress Pt fatigues easy and needs rest breaks but recovers quickly. Pt is improving with ROM and strength especially with LLE. PT Short Term Goals Short Term Goals Time Frame: Oct 28, 2016 Transfers (B,C,W/C) (FIM): 5 Gait (FIM): 5 Distance (FIM): 3=150 ft Gait Assistive Device: FWW PT Prison Goals Adaptive Physical Education Specialist Goals PT [facility] Goals Time Frame: Nov 06, 2016 Transfers (B,C,W/C) (FIM): 6 Sit to Lying (QC): 6 Lying-Sitting on Side/Bed(QC): 6 Sit to Stand (QC): 6 Rollin Roll Left to Right (QC): 6 Chair/Ian-fh-Rohqf Xfer(QC): 6 Car Transfer (QC): 6 Does the Patient Walk: Yes Gait (FIM): 6 Gait distance (FIM): 3=150 ft Distance: >150 ft Walk 10 feet (QC): 6 Walk 10ft-Uneven Surface(QC): 6 Walk 50ft with 2 Turns (QC): 6 Walk 150 ft (QC): 6 Gait Level of Assist: 6 Gait Assistive Device: Cane Single Point Does the Pt use WC or Scooter?: No Stairs (FIM): 6 # of Steps: 12 1 Step (curb) (QC): 6 4 Steps (QC): 6 12 Steps (QC): 6 Stairs Level Of Assist: 6 Picking up an Object (QC): 5 PT Plan Problem List Problem List: Activity Tolerance, Functional Strength, Gait Treatment/Plan Treatment Plan: Continue Plan of Care Treatment Plan: Bed Mobility, Education, Functional Activity Yimi, Functional Strength, Group Therapy, Gait, Safety, Therapeutic Exercise, Transfers Treatment Duration: Nov 06, 2016 Visits Per Week: 10-15 Minutes/Day (M-F): 60-90 Minutes/Day (Sat/[place]): prn Safety Risks/Education Patient Education: Transfer Techniques, Correct Positioning, Safety Issues Teaching Recipient: Patient Teaching Methods: Discussion Response to Teaching: Verbalize Understanding Time/GCodes Time In: 1330 Time Out: 1415 Total Billed Treatment Time: 45 Total Billed Treatment visit, EX X2 (30m) & FA (15m) JESUS BENNETT PTA Oct 26, 2016 14:32
[2016-10-26] MEDS: ENOXAPARIN 40 MG/0.4 ML (LOVENOX) SYR SC SCH (16:04)
[2016-10-26 18:47] VITALS: BP 118/73
[2016-10-27 06:00] VITALS: BP 116/74
[2016-10-27] MEDS: KCL 10 MEQ TAB (MICRO K) PO SCH (06:11)
--- NOTE | 2016-10-27 07:21 | Physical Therapy Daily Note ---
PT Daily Note-Current Subjective Agrees to PT. Reports he is getting stronger and moving better. Reports he feels his left leg is moving a little better. Pain Numeric Pain Scale: 2 Location Body Site: Generalized ("gas pain" and "sore from lifting" ) Mental Status Patient Orientation: Person, Place, Time, Situation Transfers Functional [place] Measure 0=Not Assessed/NA 4=Minimal Assistance 1=Total Assistance 5=Supervision or Setup 2=Maximal Assistance 6=Modified [place] 3=Moderate Assistance 7=Complete IndependenceIRFPAI Quality Coding Scale 6 Independent with activity with or without an assistive device 5 Patient requires set up or clean up by helper. Patient completes activity by themselves 4 Supervision or touching assist (CGA). [place] provide cues , steadying assist 3 The helper provides less than half the effort to complete the activity 2 The helper provides more than half the effort to complete the activity 1 Dependent. The helper does all the effort to complete an activity 7 Patient refused to complete or attempt activity 9 The patient did not perform the activity before the current illness or injury 88 Not attempted due to Medical conditions or safety concerns Transfers (B, C, W/C) (FIM): 5 Supine to/from Sit: 5 (assist with catheter) Sit to/from Stand: 5 (supervision for safety purposes) Gait Training Does the Patient Walk?: Yes Gait (FIM): 5 Distance: 150 ft x 3 Gait Assistive Device: FWW focus on safety with walker and posture with gait as well as normal speed. Stair Training Stair Training: Handrails/: 2 handrails Stairs (FIM): 5 #of Steps: 12 (cues for sequencing. ) Stairs: Pattern: Step to Exercises Supine Ex: Quad Set (left ) Seated Therapy Exercises: Ankle pumps (15), Sit to stand (10), Long arc quads ( 15 left ), Hamstring Curls (15 with red ), Hip abd/add (15 with red t band) Treatments worked on functional standing balance and act tolerance with toilet transfers, standing to apply undergarments/depend. Worked on functional balance and safety in room activity and ambulation Assessment Current Status: Good Progress PT Short Term Goals Short Term Goals Time Frame: Oct 28, 2016 Transfers (B,C,W/C) (FIM): 5 Gait (FIM): 5 (met 10/27/16) Distance (FIM): 3=150 ft Gait Assistive Device: FWW PT Long-Term Goals Long-Term Goals PT Helicopter Officer Goals Time Frame: Nov 06, 2016 Transfers (B,C,W/C) (FIM): 6 Sit to Lying (QC): 6 Lying-Sitting on Side/Bed(QC): 6 Sit to Stand (QC): 6 Rollin Roll Left to Right (QC): 6 Chair/Vmk-po-Wesdg Xfer(QC): 6 Car Transfer (QC): 6 Does the Patient Walk: Yes Gait (FIM): 6 Gait distance (FIM): 3=150 ft Distance: >150 ft Walk 10 feet (QC): 6 Walk 10ft-Uneven Surface(QC): 6 Walk 50ft with 2 Turns (QC): 6 Walk 150 ft (QC): 6 Gait Level of Assist: 6 Gait Assistive Device: Cane Single Point Does the Pt use WC or Scooter?: No Stairs (FIM): 6 # of Steps: 12 1 Step (curb) (QC): 6 4 Steps (QC): 6 12 Steps (QC): 6 Stairs Level Of Assist: 6 Picking up an Object (QC): 5 PT Plan Problem List Problem List: Activity Tolerance, Functional Strength, Safety Treatment/Plan Treatment Plan: Continue Plan of Care Treatment Plan: Bed Mobility, Education, Functional Activity Yimi, Functional Strength, Group Therapy, Gait, Safety, Therapeutic Exercise, Transfers Treatment Duration: Nov 06, 2016 Visits Per Week: 10-15 Minutes/Day (M-F): 60-90 Minutes/Day (Sat/[place]): prn Safety Risks/Education Patient Education: Transfer Techniques, Steps, Safety Issues Teaching Recipient: Patient Teaching Methods: Demonstration, Discussion Response to Teaching: Return Demonstration Time/GCodes Time In: 700 Time Out: 800 Total Billed Treatment Time: 60 Total Billed Treatment visit FA 30 GT 15 EX 15 JAZMIN NARAYAN PT Oct 27, 2016 07:21
[2016-10-27] MEDS: CEPHALEXIN 250 MG (KEFLEX) CAP PO SCH ×2 (08:44→20:12)
[2016-10-27] MEDS: ALPRAZolam 0.5 MG (XANAX) TAB PO PRN ×2 (08:44→20:12)
[2016-10-27] MEDS: SENNA W/DOCUSATE (SENOKOT S) TABLET PO SCH ×2 (08:44→20:13)
--- NOTE | 2016-10-27 11:52 | Occupational Ther Daily Note ---
OT Current Status-Daily Note Subjective Pt seen in room, agreeable to OT but did not want to take a shower because he did not want to get Scott bag wet. Agreed to sponge bath at sink Appearance Alert, cooperative, talkative Mental Status/Objective Functional [place] Measure 0=Not Assessed/NA 4=Minimal Assistance 1=Total Assistance 5=Supervision or Setup 2=Maximal Assistance 6=Modified [place] 3=Moderate Assistance 7=Complete [place] Attachments: Colostomy/Ileostomy ADL-Treatment Pt stated that he felt even stronger today and thinks he will soon be ready for discharge. He is concerned that people think he will be alone when he goes home. He indicated that his secretary to the vice president lives next door and she has helped take care of him throughout this illness, including toileting and bathing him. 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 Functional [place] Measure 0=Not Assessed/NA 4=Minimal Assistance 1=Total Assistance 5=Supervision or Setup 2=Maximal Assistance 6=Modified [place] 3=Moderate Assistance 7=Complete IndependenceIRFPAI Quality Coding Scale 6 Independent with activity with or without an assistive device 5 Patient requires set up or clean up by helper. Patient completes activity by themselves 4 Supervision or touching assist (CGA). [place] provide cues , steadying assist 3 The helper provides less than half the effort to complete the activity 2 The helper provides more than half the effort to complete the activity 1 Dependent. The helper does all the effort to complete an activity 7 Patient refused to complete or attempt activity 9 The patient did not perform the activity before the current illness or injury 88 Not attempted due to Medical conditions or safety concerns Grooming (FIM): 6 (Pt brushed teeth and combed hair while sitting in a chair at the sink. Washed face and hands during bath. Did not shave today) Bathing (FIM): 5 (Pt was able to wash and dry all parts including back while seated at sink. Sponge bath, setup. Stood to wash bottom SBA, leaning on sink for balance.) Bathing Location: L Arm, R Arm, L Upper Leg, R Upper Leg, L Lower Leg ( including foot), R Lower Leg (including foot), Chest, Abdomen, Buttocks, Perineal Area Upper Body (FIM): 5 (setup. Doffed and donned shirt) Lower Body Dressing (FIM): 5 (Setup except help positioning tape on paper pants. He does not want to wear pull up briefs. Doffed and donned pants and slipper socks. FWW for balance when standing. Scott bag hangs outside pants) Toileting (FIM): 5 (Managed clothing and wiping bottom, SBA for balance. Tall toilet, grab bar, FWW) Transfers (B, C, W/C) (FIM): 5 (SBA, FWW. ) Toilet/Commode Transfer (FIM): 5 (SBA, FW, tall toilet, grab bar) All ADLs took longer than usual. Declined use of adapted equipment but did think the long shoe horn might be helpful at home. Education OT Patient Education: Modified ADL techniques, Progress toward Goal/Update tx plan, Purpose of tx/functional activities, Transfer techniques, Use of adapted equipment Teaching Recipient: Patient Teaching Methods: Discussion Response to Teaching: Verbalize Understanding OT Short Term Goals Short Term Goals Time Frame: Oct 28, 2016 Eating(FIM): 5 Grooming(FIM): 5 Bathing(FIM): 4 Upper Body Dressing(FIM): 5 Lower Body Dressing(FIM): 4 Toileting(FIM): 5 Transfers (B,C,W/C) (FIM): 5 Toilet/Commode Transfer(FIM): 5 Shower Transfer(FIM): 4 Additional Short Term Goals: 2-Verbalize Understanding, 3-ImproveStrength/Yimi 1=Demonstrate adherence to instructed precautions during ADL tasks. 2=Patient will verbalize/demonstrate understanding of assistive devices/ modifications for ADL. 3=Patient will improve strength/tolerance for activity to enable patient to perform ADL's. OT Laborer Steel Handling Goals Laborer Steel Handling Goals Time Frame: Nov 04, 2016 Eating (FIM): 6 Eating (QC): 66 Oral Hygiene (QC): 6 Grooming(FIM): 6 Bathing(FIM): 5 Shower/Bathe Self (QC): 5 Upper Body Dressing(FIM): 6 Upper Body Dressing (QC): 6 Lower Body Dressing(FIM): 6 Lower Body Dressing (QC): 6 On/Off Footwear (QC): 6 Toileting(FIM): 6 Toileting Hygiene (QC): 6 Transfers (B,C,W/C) (FIM): 6 Toilet/Commode Transfer(FIM): 6 Toilet/Commode Transfer (QC): 6 Shower Transfer(FIM): 5 Additional Goals: 1-Demonstrate ADL Tasks, 2-Verbalize Understanding, 3- ImproveStrength/Yimi 1=Demonstrate adherence to instructed precautions during ADL tasks. 2=Patient will verbalize/demonstrate understanding of assistive devices/ modifications for ADL. 3=Patient will improve strength/tolerance for activity to enable patient to perform ADL's. OT Education/Plan Discharge Recommendations Plan/Recommendations: Continue POC Treatment Plan/Plan of Care Patient would benefit from OT for education, treatment and training to promote independence in ADL's, mobility, safety and/or upper extremity function for ADL' s. Plan of Care: ADL Retraining, Functional Mobility, Group Exercise/Act as Ind, UE Funct Exercise/Act Treatment Duration: Nov 04, 2016 Visits Per Week: 10-12 Minutes/Day (M-F): 60-90 Minutes/Day (Sat/[place]): prn Agreement: Yes Rehab Potential: Good Time/GCodes Start Time: 09:30 Stop Time: 10:40 Total Time Billed (hr/min): 70 Billed Treatment Time visit, 70 minutes ADL GRICELDA CUBA OT Oct 27, 2016 11:52
--- NOTE | 2016-10-27 12:43 | Physical Therapy Daily Note ---
PT Daily Note-Current Subjective Agrees to PT. Reports he is feeling very close to being ready to discharge home. Mental Status Patient Orientation: Person, Place, Time, Situation Transfers Functional [place] Measure 0=Not Assessed/NA 4=Minimal Assistance 1=Total Assistance 5=Supervision or Setup 2=Maximal Assistance 6=Modified [place] 3=Moderate Assistance 7=Complete IndependenceIRFPAI Quality Coding Scale 6 Independent with activity with or without an assistive device 5 Patient requires set up or clean up by helper. Patient completes activity by themselves 4 Supervision or touching assist (CGA). [place] provide cues , steadying assist 3 The helper provides less than half the effort to complete the activity 2 The helper provides more than half the effort to complete the activity 1 Dependent. The helper does all the effort to complete an activity 7 Patient refused to complete or attempt activity 9 The patient did not perform the activity before the current illness or injury 88 Not attempted due to Medical conditions or safety concerns Transfers (B, C, W/C) (FIM): 5 Gait Training Gait (FIM): 5 Distance: 150 ft x 4 Gait Assistive Device: FWW Exercises NuStep Minutes: 15 Assessment Current Status: Excellent Progress Good functional gains noted. PT Short Term Goals Short Term Goals Time Frame: Oct 28, 2016 Transfers (B,C,W/C) (FIM): 5 Gait (FIM): 5 (met 10/27/16) Distance (FIM): 3=150 ft Gait Assistive Device: FWW PT Nursing Home Goals [place] Goals PT [place] Goals Time Frame: Nov 06, 2016 Transfers (B,C,W/C) (FIM): 6 Sit to Lying (QC): 6 Lying-Sitting on Side/Bed(QC): 6 Sit to Stand (QC): 6 Rollin Roll Left to Right (QC): 6 Chair/Lmc-xz-Gxegw Xfer(QC): 6 Car Transfer (QC): 6 Does the Patient Walk: Yes Gait (FIM): 6 Gait distance (FIM): 3=150 ft Distance: >150 ft Walk 10 feet (QC): 6 Walk 10ft-Uneven Surface(QC): 6 Walk 50ft with 2 Turns (QC): 6 Walk 150 ft (QC): 6 Gait Level of Assist: 6 Gait Assistive Device: Cane Single Point Does the Pt use WC or Scooter?: No Stairs (FIM): 6 # of Steps: 12 1 Step (curb) (QC): 6 4 Steps (QC): 6 12 Steps (QC): 6 Stairs Level Of Assist: 6 Picking up an Object (QC): 5 PT Plan Problem List Problem List: Activity Tolerance, Functional Strength Treatment/Plan Treatment Plan: Continue Plan of Care Treatment Plan: Bed Mobility, Education, Functional Activity Yimi, Functional Strength, Group Therapy, Gait, Safety, Therapeutic Exercise, Transfers Treatment Duration: Nov 06, 2016 Visits Per Week: 10-15 Minutes/Day (M-F): 60-90 Minutes/Day (Sat/[place]): prn Time/GCodes Time In: 1230 Time Out: 1300 Total Billed Treatment Time: 30 Total Billed Treatment vsiit EX 15 GT 15 JAZMIN NARAYAN PT Oct 27, 2016 12:43
--- NOTE | 2016-10-27 14:07 | Occupational Ther Daily Note ---
OT Current Status-Daily Note Subjective Pt really wants to go home tomorrow before the bad weather hits later this week. Up in chair on gym, agreeable to OT. No pain mentioned. Appearance Alert, cooperative Mental Status/Objective Functional [place] Measure 0=Not Assessed/NA 4=Minimal Assistance 1=Total Assistance 5=Supervision or Setup 2=Maximal Assistance 6=Modified [place] 3=Moderate Assistance 7=Complete [place] ADL-Treatment Functional [place] Measure 0=Not Assessed/NA 4=Minimal Assistance 1=Total Assistance 5=Supervision or Setup 2=Maximal Assistance 6=Modified [place] 3=Moderate Assistance 7=Complete IndependenceIRFPAI Quality Coding Scale 6 Independent with activity with or without an assistive device 5 Patient requires set up or clean up by helper. Patient completes activity by themselves 4 Supervision or touching assist (CGA). [place] provide cues , steadying assist 3 The helper provides less than half the effort to complete the activity 2 The helper provides more than half the effort to complete the activity 1 Dependent. The helper does all the effort to complete an activity 7 Patient refused to complete or attempt activity 9 The patient did not perform the activity before the current illness or injury 88 Not attempted due to Medical conditions or safety concerns Other Treatment Pt did bilat UE exercises with 3# barbells, working on shoulders, elbows, forearms and wrists, as needed for transfers (stood up from chair with arms without help but slowly due to decreased strength). Pt demonstrated some of the exercises and followed instructions for others. Did 15 reps for most of them x 2 sets. pt walked back to room, transferred onto toilet with SBA, FWW, all needs met. OT Short Term Goals Short Term Goals Time Frame: Oct 28, 2016 Eating(FIM): 5 Grooming(FIM): 5 Bathing(FIM): 4 Upper Body Dressing(FIM): 5 Lower Body Dressing(FIM): 4 Toileting(FIM): 5 Transfers (B,C,W/C) (FIM): 5 Toilet/Commode Transfer(FIM): 5 Shower Transfer(FIM): 4 Additional Short Term Goals: 2-Verbalize Understanding, 3-ImproveStrength/Yimi 1=Demonstrate adherence to instructed precautions during ADL tasks. 2=Patient will verbalize/demonstrate understanding of assistive devices/ modifications for ADL. 3=Patient will improve strength/tolerance for activity to enable patient to perform ADL's. OT Detention Goals Detention Goals Time Frame: Nov 04, 2016 Eating (FIM): 6 Eating (QC): 66 Oral Hygiene (QC): 6 Grooming(FIM): 6 Bathing(FIM): 5 Shower/Bathe Self (QC): 5 Upper Body Dressing(FIM): 6 Upper Body Dressing (QC): 6 Lower Body Dressing(FIM): 6 Lower Body Dressing (QC): 6 On/Off Footwear (QC): 6 Toileting(FIM): 6 Toileting Hygiene (QC): 6 Transfers (B,C,W/C) (FIM): 6 Toilet/Commode Transfer(FIM): 6 Toilet/Commode Transfer (QC): 6 Shower Transfer(FIM): 5 Additional Goals: 1-Demonstrate ADL Tasks, 2-Verbalize Understanding, 3- ImproveStrength/Yimi 1=Demonstrate adherence to instructed precautions during ADL tasks. 2=Patient will verbalize/demonstrate understanding of assistive devices/ modifications for ADL. 3=Patient will improve strength/tolerance for activity to enable patient to perform ADL's. OT Education/Plan Discharge Recommendations Plan/Recommendations: Continue POC Treatment Plan/Plan of Care Patient would benefit from OT for education, treatment and training to promote independence in ADL's, mobility, safety and/or upper extremity function for ADL' s. Plan of Care: ADL Retraining, Functional Mobility, Group Exercise/Act as Ind, UE Funct Exercise/Act Treatment Duration: Nov 04, 2016 Visits Per Week: 10-12 Minutes/Day (M-F): 60-90 Minutes/Day (Sat/[place]): prn Agreement: Yes Rehab Potential: Good Time/GCodes Start Time: 13:00 Stop Time: 13:20 Total Time Billed (hr/min): 20 Billed Treatment Time visit, 20 minutes exercise GRICELDA CUBA OT Oct 27, 2016 14:07
--- NOTE | 2016-10-27 15:49 | PM & R (SOAP) Progress Note ---
Subjective Subjective/Events-last exam Patient was seen in his room this AM Has progressed well Informed by RN that discharge moved up to tomorrow Current meds reviewed. Objective Exam Last Set of Vital Signs Vital Signs Date Time Temp Pulse Resp B/P Pulse Ox O2 Delivery O2 Flow Rate FiO2 10/27/16 08:00 Room Air 10/27/16 06:00 97.2 79 17 116/74 99 Capillary Refill : Less Than 3 Seconds I&O Intake and Output 10/27/16 00:00 Intake Total 1380 ml Output Total 1450 ml Balance -70 ml Intake Oral 1380 ml Output Urine Total 1450 ml # Bowel Movements 3 General: Alert, Oriented X3, Cooperative, No Acute Distress HEENT: Atraumatic, PERRLA, EOMI, Mucous Memb Moist/[place] Neck: Supple, No JVD Lungs: Clear to Auscultation Heart: Regular Rate Abdomen: Normal Bowel Sounds, Other (Mildly distended and tender Ileoconduit functioning) Assessment/Plan Assessment S/P ileoconduit for bladder Cawith mets s/p surgery [facility] Nausea multifactorial DVT prophylaxis -Lovenix Sub Cut 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
[2016-10-27] MEDS ORDERED: CIPR500T4 PO (15:55)
[2016-10-27] MEDS ORDERED: POTA10TA6 PO (15:55)
[2016-10-27] MEDS ORDERED: CEPH250C PO (15:55)
[2016-10-27] MEDS ORDERED: Oxycodone Hcl PO (15:55)
[2016-10-27] MEDS: ENOXAPARIN 40 MG/0.4 ML (LOVENOX) SYR SC SCH (16:29)
[2016-10-27 18:24] VITALS: BP 125/63
[2016-10-28] MEDS: ACETAMINOPHEN 500 MG TAB (TYLENOL) PO PRN (04:17)
[2016-10-28] MEDS: ALPRAZolam 0.5 MG (XANAX) TAB PO PRN ×2 (04:17→11:28)
[2016-10-28 06:00] VITALS: BP 123/71
[2016-10-28] MEDS: KCL 10 MEQ TAB (MICRO K) PO SCH (06:23)
[2016-10-28] MEDS: SENNA W/DOCUSATE (SENOKOT S) TABLET PO SCH ×2 (08:09→09:00)
[2016-10-28] MEDS: CEPHALEXIN 250 MG (KEFLEX) CAP PO SCH (08:10)
--- NOTE | 2016-10-28 08:50 | Physical Therapy Daily Note ---
PT Daily Note-Current Subjective Patient in recliner pre tx, agrees to PT. Patient states he does not have any pain but has some gas pressure and he may need to use the restroom later. Appearance Patient on toilet post tx, with nurse call. Patient instructed to call nurse when he is done. Mental Status Patient Orientation: Normal For Age Attachments: Colostomy/Ileostomy Transfers Functional [place] Measure 0=Not Assessed/NA 4=Minimal Assistance 1=Total Assistance 5=Supervision or Setup 2=Maximal Assistance 6=Modified [place] 3=Moderate Assistance 7=Complete IndependenceIRFPAI Quality Coding Scale 6 Independent with activity with or without an assistive device 5 Patient requires set up or clean up by helper. Patient completes activity by themselves 4 Supervision or touching assist (CGA). [place] provide cues , steadying assist 3 The helper provides less than half the effort to complete the activity 2 The helper provides more than half the effort to complete the activity 1 Dependent. The helper does all the effort to complete an activity 7 Patient refused to complete or attempt activity 9 The patient did not perform the activity before the current illness or injury 88 Not attempted due to Medical conditions or safety concerns Transfers (B, C, W/C) (FIM): 5 Scootin Rollin Roll Left to Right (QC): 6 Supine to/from Sit: 6 Sit to/from Stand: 4 Sit to Lying (QC): 6 Sit to Stand (QC): 6 Patient needs SBA during transfers only because of left leg weakness. Gait Training Does the Patient Walk?: Yes Gait (FIM): 5 Distance: 300' Walk 10 feet (QC): 4 Walk 50 ft with 2 Turns(QC): 4 Walk 150 ft (QC): 4 Walking 10ft on uneven surface: 4 Gait Level of Assist: 5 Gait Persons Needed: 1 Gait Assistive Device: FWW Patient standby assist with ambulation because of left leg weakness, sometimes he has an issue with left knee giving out but he does not lose balance if he has a walker. Patient can ambulate 300' with a rolling walker with SBA, 50' with at least 2 turns of 90 degrees, and 10' over an uneven surface like carpet. Wheelchair Training Does the Pt Use a Wheelchair?: No Stair Training Stair Training: Handrails/: 2 handrails Stairs (FIM): 5 #of Steps: 12 1 Step (curb) (QC): 4 4 Steps (QC): 4 12 Steps (QC): 4 Stairs: Pattern: Step to Level of Assist: 5 cues for correct foot placement Balance Picking up an Object (QC): 4 Special Test Comments Patient can cone picker an object from the floor as long as he has the walker to hold onto for balance Exercises NuStep Minutes: 15 NuStep Workload: 5 Treatments bed mobility and transfers, ambulation, functional strengthening, stair training Assessment Current Status: Good Progress Patient does not need any assist other than standby with mobility. Patient is set to discharge today. PT Short Term Goals Short Term Goals Time Frame: Oct 28, 2016 Transfers (B,C,W/C) (FIM): 5 Gait (FIM): 5 (met 10/27/16) Distance (FIM): 3=150 ft Gait Assistive Device: FWW PT Management Architect Goals Management Architect Goals PT [facility] Goals Time Frame: Nov 06, 2016 Transfers (B,C,W/C) (FIM): 6 Sit to Lying (QC): 6 Lying-Sitting on Side/Bed(QC): 6 Sit to Stand (QC): 6 Rollin Roll Left to Right (QC): 6 Chair/Bzl-xo-Hixqa Xfer(QC): 6 Car Transfer (QC): 6 Does the Patient Walk: Yes Gait (FIM): 6 Gait distance (FIM): 3=150 ft Distance: >150 ft Walk 10 feet (QC): 6 Walk 10ft-Uneven Surface(QC): 6 Walk 50ft with 2 Turns (QC): 6 Walk 150 ft (QC): 6 Gait Level of Assist: 6 Gait Assistive Device: Cane Single Point Does the Pt use WC or Scooter?: No Stairs (FIM): 6 # of Steps: 12 1 Step (curb) (QC): 6 4 Steps (QC): 6 12 Steps (QC): 6 Stairs Level Of Assist: 6 Picking up an Object (QC): 5 10/28/15 Patient has made good progress and is basically SBA with all mobility including stairs and picking up an object from the floor, but he has not met his chcf goals. He is not yet mod I with mobility. PT Plan Problem List Problem List: Activity Tolerance, Functional Strength, Safety, Balance, Gait, Transfer, Bed Mobility Treatment/Plan Treatment Plan: Continue Plan of Care Treatment Plan: Bed Mobility, Education, Functional Activity Yimi, Functional Strength, Group Therapy, Gait, Safety, Therapeutic Exercise, Transfers Treatment Duration: Nov 06, 2016 Visits Per Week: 10-15 Minutes/Day (M-F): 60-90 Minutes/Day (Sat/[place]): prn Safety Risks/Education Patient Education: Gait Training, Transfer Techniques, Steps, Safety Issues Teaching Recipient: Patient Teaching Methods: Demonstration, Discussion Response to Teaching: Reinforcement Needed Time/GCodes Time In: 800 Time Out: 845 Total Billed Treatment Time: 45 Total Billed Treatment 1 visit FA 15 min EX 15 min GT 15 min AMBER EWING PT Oct 28, 2016 08:50
--- NOTE | 2016-10-28 10:55 | Occupational Ther Daily Note ---
OT Current Status-Daily Note Subjective Pt sitting in recliner. Pt agreed to shower instead of sponge bath. No pain mentioned. Agreeable to OT. Appearance Alert, Cooperative Mental Status/Objective Functional [place] Measure 0=Not Assessed/NA 4=Minimal Assistance 1=Total Assistance 5=Supervision or Setup 2=Maximal Assistance 6=Modified [place] 3=Moderate Assistance 7=Complete [place] Attachments: Colostomy/Ileostomy ADL-Treatment Pt sitting in recliner. Pt walked to bathroom FWW, SBA. Pt pulled down pajama pants, brief, without help or supervision. Pt used grab bars to lower self on to toilet. Pt managed hygiene, without help. While sitting on toilet pt doffed shirt, pajama pants, brief. Pt walked to shower, FWW, SBA. Pt transferred to shower bench mod I to doff slipper socks, grab bars. Bathed with hand held shower, shower bench, grab bars, set up required. Pt washed/ dried all body parts, setup. Pt donned shirt, brief, pajama pants while sitting on shower bench , setup. Pt stood in front of sink, FWW for balance, brushed teeth, combed hair , Mod I. Pt walked back to room, FWW, SBA. Pt donned slipper socks while sitting on recliner, setup. Pt left in recliner, call light in reach. All needs met. Functional [place] Measure 0=Not Assessed/NA 4=Minimal Assistance 1=Total Assistance 5=Supervision or Setup 2=Maximal Assistance 6=Modified [place] 3=Moderate Assistance 7=Complete IndependenceIRFPAI Quality Coding Scale 6 Independent with activity with or without an assistive device 5 Patient requires set up or clean up by helper. Patient completes activity by themselves 4 Supervision or touching assist (CGA). [place] provide cues , steadying assist 3 The helper provides less than half the effort to complete the activity 2 The helper provides more than half the effort to complete the activity 1 Dependent. The helper does all the effort to complete an activity 7 Patient refused to complete or attempt activity 9 The patient did not perform the activity before the current illness or injury 88 Not attempted due to Medical conditions or safety concerns Eating (FIM): 7 (Pt can open packets and cut food, feed himself. No dentures) Eating (QC): 6 Grooming (FIM): 6 Oral Hygiene (QC): 6 Toileting Hygiene (QC): 6 Bathing (FIM): 5 Bathing Location: L Arm, R Arm, L Upper Leg, R Upper Leg, L Lower Leg ( including foot), R Lower Leg (including foot), Chest, Abdomen, Buttocks, Perineal Area Upper Body (FIM): 5 (setup) Upper Body Dressing (QC): 5 Lower Body Dressing (FIM): 5 (setup) Lower Body Dressing (QC): 5 On/Off Footwear (QC): 5 (setup) Toileting (FIM): 6 Toilet/Commode Transfer (FIM): 6 Toilet Transfer (QC): 6 Shower Transfer(FIM): 6 Shower/Bathe Self (QC): 5 Education OT Patient Education: Energy conservation, Progress toward Goal/Update tx plan , Purpose of tx/functional activities Teaching Recipient: Patient Teaching Methods: Discussion Response to Teaching: Verbalize Understanding, Return Demonstration OT Short Term Goals Short Term Goals Time Frame: Oct 28, 2016 Eating(FIM): 5 Grooming(FIM): 5 Bathing(FIM): 4 Upper Body Dressing(FIM): 5 Lower Body Dressing(FIM): 4 Toileting(FIM): 5 Transfers (B,C,W/C) (FIM): 5 Toilet/Commode Transfer(FIM): 5 Shower Transfer(FIM): 4 Other All STG met 10-28-16 Additional Short Term Goals: 2-Verbalize Understanding, 3-ImproveStrength/Yimi 1=Demonstrate adherence to instructed precautions during ADL tasks. 2=Patient will verbalize/demonstrate understanding of assistive devices/ modifications for ADL. 3=Patient will improve strength/tolerance for activity to enable patient to perform ADL's. OT Chcf Goals Chcf Goals Time Frame: Nov 04, 2016 Eating (FIM): 6 (met at 7) Eating (QC): 6 Oral Hygiene (QC): 6 (met) Grooming(FIM): 6 (met) Bathing(FIM): 5 (met) Shower/Bathe Self (QC): 5 (met) Upper Body Dressing(FIM): 6 (not met - setup) Upper Body Dressing (QC): 6 (not met - setup) Lower Body Dressing(FIM): 6 (not met - setup) Lower Body Dressing (QC): 6 (not met - setup) On/Off Footwear (QC): 6 (not met - setup) Toileting(FIM): 6 (met) Toileting Hygiene (QC): 6 (met) Transfers (B,C,W/C) (FIM): 6 Toilet/Commode Transfer(FIM): 6 (met) Toilet/Commode Transfer (QC): 6 (met) Shower Transfer(FIM): 5 (met at 6) Additional Goals: 1-Demonstrate ADL Tasks, 2-Verbalize Understanding, 3- ImproveStrength/Yimi 1=Demonstrate adherence to instructed precautions during ADL tasks. 2=Patient will verbalize/demonstrate understanding of assistive devices/ modifications for ADL. 3=Patient will improve strength/tolerance for activity to enable patient to perform ADL's. OT Education/Plan Discharge Recommendations Plan/Recommendations: Discharge/Goals Met (see tx plan for goals met) Treatment Plan/Plan of Care Patient would benefit from OT for education, treatment and training to promote independence in ADL's, mobility, safety and/or upper extremity function for ADL' s. Plan of Care: ADL Retraining, Functional Mobility, Group Exercise/Act as Ind, UE Funct Exercise/Act Treatment Duration: Nov 04, 2016 Visits Per Week: 10-12 Minutes/Day (M-F): 60-90 Minutes/Day (Sat/[place]): prn Agreement: Yes Rehab Potential: Good Time/GCodes Start Time: 09:30 Stop Time: 10:30 Total Time Billed (hr/min): 60 Billed Treatment Time visit, ADL 60 min GRICELDA CUBA OT Oct 28, 2016 10:55
--- NOTE | 2016-10-28 11:19 | PM & R (SOAP) Progress Note ---
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 Objective Exam Last Set of Vital Signs Vital Signs Date Time Temp Pulse Resp B/P Pulse Ox O2 Delivery O2 Flow Rate FiO2 10/28/16 08:28 Room Air 10/28/16 06:00 98.4 80 22 123/71 97 Capillary Refill : Less Than 3 Seconds I&O Intake and Output 10/27/16 23:59 Intake Total 1410 ml Output Total 1475 ml Balance -65 ml Intake Oral 1410 ml Output Urine Total 1475 ml # Bowel Movements 2 General: Alert, Oriented X3, Cooperative, No Acute Distress HEENT: Atraumatic, PERRLA, EOMI, Mucous Memb Moist/[place] Neck: Supple, No JVD Lungs: Clear to Auscultation Heart: Regular Rate Abdomen: Normal Bowel Sounds, Other (Mildly distended and tender Ileoconduit functioning) Assessment/Plan Assessment S/P ileoconduit for bladder Cawith mets s/p surgery [facility] Nausea multifactorial DVT prophylaxis -Lovenix Sub Cut 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 MARIFER HUNG MD Oct 28, 2016 11:19
--- NOTE | 2016-10-28 11:53 | Therapy Team Discharge Summary ---
Therapy Discharge Summary Discharge Recommendations Date of Discharge Therapy D/C Recommendations: Home w/ Family Support, Occupational Therapy Home Care Physical Therapy Patient came to rehab following surgery for bladder cancer. Upon admission, patient performed bed mobility and transfers with min assist, ambulated 125' with a rolling walker with min assist, was mod I with wheelchair mobility, and could go up and down 1 step using a rolling walker with CGA. Patient has been performing bed mobility and transfer training, balance and endurance training, functional strengthening, gait training, stair training, and education, to improve functional mobility and independence at home. 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 Now, patient performs bed mobility with mod I, transfers with SBA, ambulates 300' with a rolling walker with SBA (including 10' over an uneven surface like carpet, and 50' with at least 2 turns of 90 degrees), and go up and down 12 steps using 2 handrails with SBA, he can also forklift picker an object from the floor while holding onto his walker with SBA. Patient is being discharged from this facility today and will be discharged from PT at this time. PT Police Officer Goals Correction Goals PT Correction Goals Time Frame: Nov 06, 2016 Transfers (B,C,W/C) (FIM): 6 Roll Left to Right (QC): 6 Sit to Lying (QC): 6 Lying-Sitting on Side/Bed(QC): 6 Sit to Stand (QC): 6 Chair/Zkc-nr-Mvrhl Xfer(QC): 6 Car Transfer (QC): 6 Does the Patient Walk: Yes Gait (FIM): 6 Gait distance (FIM): 3=150 ft Distance: >150 ft Walk 10 feet (QC): 6 Walk 10ft-Uneven Surface(QC): 6 Walk 50ft with 2 Turns (QC): 6 Walk 150 ft (QC): 6 Gait Level of Assist: 6 Gait Assistive Device: Cane Single Point Does the Pt use WC or Scooter?: No Stairs (FIM): 6 # of Steps: 12 1 Step (curb) (QC): 6 4 Steps (QC): 6 12 Steps (QC): 6 Stairs Level Of Assist: 6 Picking up an Object (QC): 5 OT Correction Goals Police Officer Goals Time Frame: Nov 04, 2016 Eating (FIM): 6 (met at 7) Eating (QC): 6 Oral Hygiene (QC): 6 (met) Grooming(FIM): 6 (met) Bathing(FIM): 5 (met) Shower/Bathe Self (QC): 5 (met) Upper Body Dressing(FIM): 6 (not met - setup) Upper Body Dressing (QC): 6 (not met - setup) Lower Body Dressing(FIM): 6 (not met - setup) Lower Body Dressing (QC): 6 (not met - setup) On/Off Footwear (QC): 6 (not met - setup) Toileting(FIM): 6 (met) Toileting Hygiene (QC): 6 (met) Transfers (B,C,W/C) (FIM): 6 Toilet/Commode Transfer(FIM): 6 (met) Toilet/Commode Transfer (QC): 6 (met) Shower Transfer(FIM): 5 (met at 6) Additional Goals: 1-Demonstrate ADL Tasks, 2-Verbalize Understanding, 3- ImproveStrength/Yimi 1=Demonstrate adherence to instructed precautions during ADL tasks. 2=Patient will verbalize/demonstrate understanding of assistive devices/ modifications for ADL. 3=Patient will improve strength/tolerance for activity to enable patient to perform ADL's. AMBER EWING PT Oct 28, 2016 11:53
--- NOTE | 2016-10-28 13:02 | Therapy Team Discharge Summary ---
Therapy Discharge Summary Discharge Recommendations Date of Discharge Oct 28, 2016 at 12:00 Therapy D/C Recommendations: Home w/ Family Support, Occupational Therapy Home Care Occupational Therapy Pt was seen for skilled OT to increase his independence with basic self care to allow him to return home safely with friend and family support after surgery for bladder cancer and resultant weakness and decreased self care. On admission he was dependant with toileting, max assist with lower body dressing, min assist to CGA transfers and upper body dressing and setup/supervision for eating , grooming. By discharge he was independent with eating, mod I grooming, toileting, toilet and shower transfers, setup dressing and bathing. Equipment used included shower bench, grab bars, tall toilet, FWW. See tx plan for goals met. Recommend home health OT. Pt discharged to home today. DC OT PT Prison Goals Auto Bench Mechanic Goals PT Prison Goals Time Frame: Nov 06, 2016 Transfers (B,C,W/C) (FIM): 6 Roll Left to Right (QC): 6 Sit to Lying (QC): 6 Lying-Sitting on Side/Bed(QC): 6 Sit to Stand (QC): 6 Chair/Vqs-nb-Kvsaj Xfer(QC): 6 Car Transfer (QC): 6 Does the Patient Walk: Yes Gait (FIM): 6 Gait distance (FIM): 3=150 ft Distance: >150 ft Walk 10 feet (QC): 6 Walk 10ft-Uneven Surface(QC): 6 Walk 50ft with 2 Turns (QC): 6 Walk 150 ft (QC): 6 Gait Level of Assist: 6 Gait Assistive Device: Cane Single Point Does the Pt use WC or Scooter?: No Stairs (FIM): 6 # of Steps: 12 1 Step (curb) (QC): 6 4 Steps (QC): 6 12 Steps (QC): 6 Stairs Level Of Assist: 6 Picking up an Object (QC): 5 OT Auto Bench Mechanic Goals Auto Bench Mechanic Goals Time Frame: Nov 04, 2016 Eating (FIM): 6 (met at 7) Eating (QC): 6 Oral Hygiene (QC): 6 (met) Grooming(FIM): 6 (met) Bathing(FIM): 5 (met) Shower/Bathe Self (QC): 5 (met) Upper Body Dressing(FIM): 6 (not met - setup) Upper Body Dressing (QC): 6 (not met - setup) Lower Body Dressing(FIM): 6 (not met - setup) Lower Body Dressing (QC): 6 (not met - setup) On/Off Footwear (QC): 6 (not met - setup) Toileting(FIM): 6 (met) Toileting Hygiene (QC): 6 (met) Transfers (B,C,W/C) (FIM): 6 Toilet/Commode Transfer(FIM): 6 (met) Toilet/Commode Transfer (QC): 6 (met) Shower Transfer(FIM): 5 (met at 6) Additional Goals: 1-Demonstrate ADL Tasks, 2-Verbalize Understanding, 3- ImproveStrength/Yimi 1=Demonstrate adherence to instructed precautions during ADL tasks. 2=Patient will verbalize/demonstrate understanding of assistive devices/ modifications for ADL. 3=Patient will improve strength/tolerance for activity to enable patient to perform ADL's. GRICELDA CUBA OT Oct 28, 2016 13:01
[2016-10-28] MEDS ORDERED: ENOX40DI13 SQ (15:48)
--- NOTE | 2016-11-10 10:34 | DISCHARGE SUMMARY ---
DATE OF ADMISSION: 10/21/2016 DATE OF DISCHARGE: 10/28/2016 HISTORY OF PRESENT ILLNESS: The patient is a 66-year-old male who presented to Dr. Biggs's office regarding hematuria. He had an initial evaluation with him, which revealed bladder cancer. He was referred to [facility] for bladder cancer with metastases to intra-abdominal lymph nodes. The patient underwent a cystoprostatectomy with ileal conduit and bilateral pelvic lymph node dissection with Dr. Garcia on 10/13 2016. The patient had some complaints of weakness and numbness around the left leg post-op. He was unable to straight leg raise on the left indicating quadriceps weakness . The patient indicates he has no primary care physician and has been seen by Dr. Biggs and Dr. Mcgowan but has not regularly sought medical care. He is on medication for anxiety and he has had chemotherapy and blood transfusions in the past. He was referred to Inpatient Rehabilitation Unit due to decline in his functional independence. He is reported to be continent of bowel but has been on bowel medications for constipation and he does not eat much as he states he did not care for the food at the outside hospital with complaints of gas, currently on a regular diet. PAST MEDICAL HISTORY: , retired, lives alone, but has a sister and a female friend who will assist him upon discharge. He has a son that lives nearby. He lives in [place]. MEDICAL COURSE: The patient was followed by Dr. Mccauley and Dr. Velazquez while on rehab unit. Constipation, treated. He progressed well. The patient's female friend and sister came in to review Ileal conduit care. Apparently his physician at wants him to continue on Lovenox subcutaneous upon discharge at home for a couple more weeks. They were provided instructions in that and provided with Lovenox. Certainly from a mobility standpoint, he did not require Lovenox anymore as he progressed quite well with therapies. Blood pressure 10/28 was 122/71, respirations 23, pulse 80. O2 sat 97% on room air. CBC on 10/23 showed WBC 17.7 declining from 19.7 on 10/22, H&H 10.3/33, improved to 1.5, platelet count 408,000. Chemistry showed serum sodium, low at 133, 10/23 trending downward. He may have follow-up with Dr. Mcgowan regarding that. He was seen by Dr. Mcgowan and Dr. Biggs while on rehab unit as well. His BUN and creatinine mildly elevated, trending upward at 20/1.33; this may be followed up with Dr. Mcgowan and Dr. Garcia. Total protein was 5.8, albumin 2.9, calcium 8, glucose 132. REHABILITATION COURSE: He progressed with his therapies. He had increased strength and endurance. He was able to manage his ileal conduit and was continent of bowel. His incisions at his ostomy site were healing well. Speech therapy did assessment upon admission and found her to be intact and signed off. PT notes that upon admission the patient controlled bed mobility and transfers with min assist. He could ambulate 25 feet with a wheeled walker. Min assist was modified independent with wheelchair mobility. He has made good progress and upon discharge he is modified independent with bed mobility, standby assist for transfers, ambulates 300 feet with a wheeled walker with standby assist. OT notes upon admission, he was dependent with toileting. Max assist for lower body dressing. Min assist to contact guard for transfers, and upper body dressing, and set up to supervision for eating and grooming. By discharge he is independent with eating, modified independent with grooming, toileting, toilet and shower transfers, set up for dressing and bathing. Equipment used included shower bench, grab bars, tall toilet, and front wheel walker. It is recommended he have home health care. The patient's strength at the left quadriceps improved. He was able to straight leg raise and hip flex but still had some residual weakness in the left quadriceps DISCHARGE INSTRUCTIONS: The patient will have follow-up with Dr. Garcia at [facility] and Dr. Biggs and Dr. Mcgowan as per their schedules. Continue current diet. The patient will have home health care. DISCHARGE MEDICATIONS: 1. Keflex 500 mg p.o. b.i.d. 2. Lovenox 40 mg subcutaneous daily. 3. KCL 10 mEq p.o. daily. 4. OxyIR 5 mg p.o. q.4 hours p.r.n. severe pain. 5. Tylenol 325 mg p.o. 1 to 2 tablets p.o. q.6 h. p.r.n. pain. 6. Xanax 0.5 mg p.o. t.i.d. p.r.n. anxiety. 7. Cipro 500 mg p.o. b.i.d. 8. Senokot-S 1 tablet p.o. b.i.d. p.r.n. DISCHARGE DIAGNOSES: 1. Rehabilitation general debilitation secondary to bladder cancer, status post cystoprostatectomy with ileal conduit with bilateral pelvic lymph node dissection with Dr. Garcia at the [facility] on 10/13 2016. 2. Left quadriceps weakness, most likely due to peripheral nerve impingement, expression, improving. 3. Anxiety, on medication. 4. Hydronephrosis left kidney treated. 5. History of chemotherapy. 6. History of blood transfusion. 7. Mild hyponatremia. 8. Hypoalbuminemia. 9. Mild azotemia. 10. Hypokalemia, treated 11. Postoperative anemia, improving. 12. Leukocytosis, improving. 13. Hypocalcemia to be considered for replacement with follow-up physician. 14. DVT Prophylaxis on Lovenox subcut CONDITION AT DISCHARGE: Improved and stable. PROGNOSIS: Rehab prognosis appears good for some continued improvement at home with his female friend and sister assisting him and return to independent living. Job ID: [id number] Dictated Date: 11/10/2016 08:41:47 Drill Press Set Up Operator Radial Date: 11/10/2016 10:12:38/esperanza FREEMAN
== END 2016-10-28 12:00 | disposition home health service (06) | DRG 74 ==
PROVIDERS: ADMIT Physical Medicine & Rehabilitation; ATTEND Physical Medicine & Rehabilitation
DX: G57.92 Unspecified mononeuropathy of left lower limb (principal); R26.2 Difficulty in walking, not elsewhere classified; C67.9 Malignant neoplasm of bladder, unspecified; Z93.2 Ileostomy status; F41.9 Anxiety disorder, unspecified; K59.00 Constipation, unspecified; D64.9 Anemia, unspecified; E87.6 Hypokalemia
CPT/HCPCS: 36415; 80053; 85007; 85025; 85027

== ENCOUNTER → 2017-02-08 | Outpatient (RCR) | payer MEDICARE ==
--- OUTSIDE RECORDS SUMMARY | 2016-11-10 14:27 | XMS REPORT | Continuity of Care Document ---
Author Author [facility] Organization [facility] Address Unknown Phone Unavailable Care Team Providers Care Jeeper Operator Name Role Phone Jennifer Muller PCP Unavailable Source Comments Some departments are not documenting in the electronic medical record. If you do not see the information that you expected, contact Release of Information in the Health Information Management department at [phone] for further assistance in locating additional records.[facility] Active Allergies and Adverse Reactions No Known Allergies Current Medications Prescription Sig. Disp. Refills Start End Date Status Date ALPRAZolam (XANAX) 0.5 mg Take 0.5 mg by mouth Active tablet three times daily as needed for Anxiety. enoxaparin (LOVENOX) 40 Inject 0.4 mL under the 30 Syringe 0 10/16/20 Active mg injection syringe skin daily. 16 senna/docusate Take 1 Tab by mouth twice 0 10/21/19 Active (SENOKOT-S) 8.6/50 mg daily. Indications: 17 tablet CONSTIPATION oxyCODONE (ROXICODONE, Take 1-2 Tabs by mouth 4 Tab 0 11/04/19 Active OXY-IR) 5 mg tablet every 4 hours as needed 17 for Pain oxyCODONE/acetaminophen Take 1 Tab by mouth every 60 Tab 0 11/04/19 Active (PERCOCET; ENDOCET) 6 hours as needed for 17 10/325 mg tablet Pain Take with food; NTE 4g acetaminophen/day HYDROcodone/acetaminophen Take 1-2 Tabs by mouth 30 Tab 0 09/23/20 10/21/19 Discontin (NORCO) 5/325 mg tablet every 4 hours as needed 16 17 ued for Pain Indications: PAIN docusate (COLACE) 100 mg Take 100 mg by mouth 10/21/19 Discontin capsule twice daily. 17 ued cephalexin (KEFLEX) 500 Take 1 Cap by mouth twice 0 10/21/19 Discontin mg capsule daily. Take until 17 17 ued 11/03/2016 oxyCODONE (ROXICODONE, Take 1-2 Tabs by mouth 40 Tab 0 10/21/19 Discontin OXY-IR) 5 mg tablet every 4 hours as needed 17 17 ued for Pain Earliest Fill Date: 10/21/16 acetaminophen (TYLENOL) Take 2 Tabs by mouth 0 10/21/19 11/04/19 Discontin 325 mg tablet every 6 hours. Take every 17 17 ued 6 hours for two days and then as needed there after. simethicone (MYLICON) 80 Chew 1 Tab by mouth every 30 Tab 0 10/21/19 11/04/19 Discontin mg chew tablet 6 hours as needed. 17 17 ued polyethylene glycol 3350 Take 1 Packet by mouth 12 Each 10/21/19 Discontin (MIRALAX) 17 g packet daily. Indications: 17 17 ued CONSTIPATION milk of magnesia (CONC) Take 10 mL by mouth 360 mL 10/21/19 11/04/19 Discontin 2,400 mg/10 mL oral daily. Indications: 17 17 ued suspension CONSTIPATION ciprofloxacin HCl (CIPRO) Take 1 Tab by mouth twice 0 11/03/19 500 mg tablet daily for 3 days. Begin 17 17 taking on 11/03/2016 for 3 days. Active Problems Problem Noted Date Bladder cancer (HCC) 06/16/2016 Most Recent Encounters Date Type Specialty Providers Description 11/04/2016 Office Visit Urology Carmen Muller MD Malignant neoplasm of urinary bladder, unspecified site (HCC) (Primary Dx) 11/04/2016 [facility] Carmen Muller MD Malignant neoplasm of Encounter overlapping sites of bladder (HCC) 10/28/2016 Telephone Urology Carmen Muller MD General Question 10/16/2016 Refill Urology Nicole Avalos MD 10/13/2016 [facility] Carmen Muller MD Bladder cancer (HCC) - [...] Encounter for blood typing 09/23/2016 Office Visit UrologCarmen Hebert MD Malignant neoplasm of lateral wall of urinary bladder (HCC) (Primary Dx) 09/23/2016 Anesthesia Elizabeth Kidd APRN-LUMBER PILER OPERATOR Event 09/23/2016 Prep for Case UrologCarmen Hebert MD Social History Tobacco Use Types Packs/Day Years Used Date Former Smoker Cigars Quit: 05/24/2016 Smokeless Tobacco: Former Quit: User 10/18/1999 Comments: previously smoked ~1 nehemiah cigar/day at times Alcohol Use Drinks/Week oz/Week Comments Yes 18 Shots of 10.8 quit 05/24/2016; liquor Last Filed Vital Signs Vital Sign Reading Time Taken Blood Pressure 135/73 11/04/2016 1:13 PM RETAIL CONSULTANT Pulse 79 11/04/2016 1:13 PM RETAIL CONSULTANT Temperature 36.8 C (98.3 F) 10/21/2016 7:26 AM RETAIL CONSULTANT Respiratory Rate - - Height 1.829 m (6') 11/04/2016 1:13 PM RETAIL CONSULTANT Weight 80.468 kg (177 lb 6.4 oz) 11/04/2016 1:13 PM RETAIL CONSULTANT Body Mass Index 24.05 11/04/2016 1:13 PM RETAIL CONSULTANT Oxygen Saturation 97% 10/21/2016 7:26 AM RETAIL CONSULTANT Plan of Care Date Type Specialty Providers Description 02/03/2017 Appointment Radiology Carmen Muller MD [address] [facility] [address] [place] [address] [phone] (Fax) 02/03/2017 Appointment Urology Carmen Muller MD [address] [facility] [address] [place] [address] [phone] (Fax) Health Maintenance Due Date Last Done Comments Hepatitis C Screening 1950 Physical (Comprehensive) 1955 Exam Pertussis Vaccine 1959 Tetanus Vaccine 1965 Colorectal Cancer 1998 Screening Shingles Vaccine 2008 Prevnar/Pneumovax (#1) 2013 Influenza Vaccine 06/18/2016 Procedures from Last 3 Months Procedure Name Priority Date/Time Associated Diagnosis Comments ECG-SCAN 10/23/2016 Results for this 6:53 AM RETAIL CONSULTANT procedure are in the results section. TELEMETRY STRIPS-SCAN 10/23/2016 Results for this 6:47 AM RETAIL CONSULTANT procedure are in the results section. ANESTHESIA ARTERIAL LINE Routine 10/13/2016 Results for this INSERTION 8:57 AM RETAIL CONSULTANT procedure are in the results section. CYSTOPROSTATECTOMY WITH 10/13/2016 Malignant neoplasm of ILEAL CONDUIT, BILATERAL 8:00 AM RETAIL CONSULTANT overlapping sites of PELVIC LYMPH NODE bladder (HCC) DISSECTION Special Needs 10/07- REQUESTED START TIME CHANGED FROM 0745 TO 0800 (WEDNESDAY) Yamilet CARBAJAL RN ([id number])09/18 1- PER STANDARD WORKFLOW POLICY, CASE LENGTH ADDED TO COMMENT SECTION ON GENERAL INFORMATIO N PAGE Yamilet CARBAJAL RN ([id number]) Results from Last 3 Months PREALBUMIN (11/04/2016 12:36 PM) Component Value Range Prealbumin 26.0 17-34 MG/DL Specimen Blood CBC AND DIFF (11/04/2016 12:36 PM)Only the most recent of 2 results within the time period is included. Component Value Range White Blood Cells 7.1 4.5-11.0 K/UL RBC 3.40 (L) 4.4-5.5 M/UL Hemoglobin 9.6 (L) 13.5-16.5 GM/DL Hematocrit 29.1 (L) 40-50 % MCV 85.7 80-100 FL MCH 28.3 26-34 PG MCHC 33.0 32.0-36.0 G/DL RDW 17.9 (H) 11-15 % Platelet Count 327 150-400 K/UL MPV 7.5 7-11 FL Neutrophils 59 41-77 % Lymphocytes 24 24-44 % Monocytes 14 (H) 4-12 % Eosinophils 3 0-5 % Basophils 0 0-2 % Absolute Neutrophil Count 4.20 1.8-7.0 K/UL Absolute Lymph Count 1.70 1.0-4.8 K/UL Absolute Monocyte Count 1.00 (H) 0-0.80 K/UL Absolute Eosinophil Count 0.20 0-0.45 K/UL Absolute Basophil Count 0.00 0-0.20 K/UL Specimen Blood COMPREHENSIVE METABOLIC PANEL (11/04/2016 12:36 PM) Component Value Range Sodium 136 (L) 137-147 MMOL/L Potassium 4.7 3.5-5.1 MMOL/L Chloride 103 98-110 MMOL/L Glucose 103 (H) 70-100 MG/DL Blood Urea Nitrogen 19 7-25 MG/DL Creatinine 1.38 (H) 0.4-1.24 MG/DL Calcium 9.5 8.5-10.6 MG/DL Total Protein 7.1 6.0-8.0 G/DL Total Bilirubin 0.3 0.3-1.2 MG/DL Albumin 3.5 3.5-5.0 G/DL Alk Phosphatase 50 25-110 U/L AST (SGOT) 14 7-40 U/L CO2 24 21-30 MMOL/L ALT (SGPT) 7 7-56 U/L Anion Gap 9 3-12 eGFR Non 51 (L)Comment: >60 mL/min The eGFR is not [...] the Clinical Pharmacist for questions. Specimen Blood ECG-SCAN (10/23/2016 6:53 AM) Narrative Ordered by an unspecified provider. TELEMETRY STRIPS-SCAN (10/23/2016 6:47 AM) Narrative Ordered by an unspecified provider. PATHOLOGY INTEROPERATIVE REPORT SCAN (10/22/2016 12:07 PM) Narrative Ordered by an unspecified provider. CREATININE-FLUID (10/20/2016 12:00 PM) Component Value Range Creatinine,Fluid 1.26 MG/DL Specimen Fluid - Brad Drainage PHOSPHORUS (10/18/2016 3:28 AM)Only the most recent [...] MMOL/L O2 Sat-Arterial 99.5 (H) 95-99 % Akrfakmqpnv-BEA-Gne 21.6 21-28 MMOL/L Specimen Blood, arterial - Blood SURGICAL PATHOLOGY (10/13/2016 9:21 AM) Component Value Range PATHOLOGY REPORT [facility] [email or web address] Moraima Snyder MD, PhD, Director of Anatomic Pathology Department of Pathology and Laboratory Medicine [address] [place] [id number] Surgical Pathology Office: [phone] SURGICAL PATHOLOGY REPORT NAME: MT GRACE SURG PATH #: [id number] MR #: [id number] SPECIMEN CLASS: SR BILLING #: [id number] ALT ID #: LOCATION: [id number] DATE OF PROCEDURE: 10/13/2016 AGE: 66 SEX: M DATE RECEIVED: 10/13/2016 : 1950 TIME RECEIVED: 09:21 PHYSICIAN: CARMEN MULLER MD DATE OF REPORT: [...] treatment effect. See checklist. Prostate: Prostatic adenocarcinoma, Jay grade 3 + 3=6 (grade group 1) [...] Adenocarcinoma (acinar, not otherwise specified) Histologic Grade [place] Pattern Primary Pattern Grade 3 Secondary Pattern Grade 3 Tertiary Pattern Not applicable Total Jay Score: 3 + 3=6 (Grade group 1) [...] status and/or prior pathology. Pursuant to the Cut Off Saw Set Up Operator Program at the [facility] Pathology Department, selected prostate slides from [...] in this report. +++Electronically Signed Out By+++ brettw/10/13/2016 Interpreted by: Herman Pandey D.O. Resident 10/16/2016 [...] with remnant being placed in cassette A1FS. ([facility]) B. Received fresh, labeled with the patient's name and "right distal ureter for frozen" is an unoriented, annular, west portion of mucosa measuring 0.5 x 0.3 x 0.3 cm. The specimen is entirely submitted for frozen consultation with a remnant being placed in cassette B1FS. ([facility]) C. Fixative: Fresh. Labeled: "Bladder and [...] and the left lobe is inked blue. Supervisor Ride Assembly sections of the specimen are submitted as follows: C1 Right and left ureteral margin (Right ureter is inked black). C2 Right and left distal urethral margin (serially sectioned). C3 Right and left seminal vesicle and vas deferens margins. C4-C5 Supervisor Ride Assembly sections from right posterior prostate. C6-C7 Supervisor Ride Assembly sections from left posterior prostate. C8 Anterior bladder wall. C9 Left lateral bladder wall. C10 Right lateral bladder wall. C11 Bladder dome. C12 Posterior bladder wall (green ink-external surface of bladder). C13 Bladder trigone. C14 Right ureter to bladder mucosa. C15 Left ureter to bladder mucosa. [id number] blocked out and entirely submitted. [id number] of the eroded area. (ads) C23-C37: Remainder [...] section remnant. D2 Remaining possible lymph node. ([facility]) E. Received in formalin, labeled with the [...] Fibroadipose tissue with possible lymph nodes. (sld) as10/13/2016 Cuauhtemoc Garcia D.O. Resident Intraoperative Consultation: A1FS, ureter, "left distal ureter for frozen", biopsy: Negative for malignancy. B1FS, ureter, "right distal ureter for frozen", biopsy: Negative for malignancy. D1FS, lymph node, "left internal iliac lymph node for frozen", excision: Necrosis- no viable tumor present on roofing sales representative section. Ramya Tomlinson M.D. ANESTHESIA ARTERIAL LINE INSERTION (10/13/2016 8:57 AM) Narrative CHARLINE Machado 10/13/20168:57 AM Anesthesia Procedure: Arterial Line Placement [...] Screen NEG Electronic Crossmatch YES Unit Number [id number] Blood Component Type RBC,ADSOL,LEUKO REDUCED Unit Division 0 Status OF Unit TRANSFUSED Transfusion Status OK TO TRANSFUSE Crossmatch Result COMPATIBLE,ELECTRONIC Unit Number [id number] Blood Component Type RBC,ADSOL,LEUKO REDUCED Unit Division [...]
[2016-11-10 14:32] LABS: BASOPHILS % (AUTO) 1 % (0-10); EOSINOPHILS # (AUTO) 0.4 10^3/uL (0.0-0.3); EOSINOPHILS % (AUTO) 6 % (0-10); LYMPHOCYTES # (AUTO) 2.1 X 10^3 (1.0-4.0); LYMPHOCYTES % (AUTO) 30 % (12-44); MEAN CORPUSCULAR HEMOGLOBIN 27 PG (25-34); MEAN CORPUSCULAR HGB CONC 31 G/DL (32-36); MEAN CORPUSCULAR VOLUME 89 FL (80-99); MEAN PLATELET VOLUME 8.9 FL (7.4-10.4); MONOCYTES # (AUTO) 0.8 X 10^3 (0.0-1.0); MONOCYTES % (AUTO) 12 % (0-12); NEUTROPHILS # (AUTO) 3.5 X 10^3 (1.8-7.8); NEUTROPHILS % (AUTO) 51 % (42-75); PLATELET COUNT 371 10^3/uL (130-400); WHITE BLOOD COUNT 6.9 10^3/uL (4.3-11.0)
[2016-11-10 15:01] LABS: ALBUMIN 3.7 G/DL (3.2-4.5); BILIRUBIN,TOTAL 0.2 MG/DL (0.1-1.0); CALCIUM 8.9 MG/DL (8.5-10.1); CREATININE SERUM 1.48 MG/DL (0.60-1.30); MAGNESIUM 1.9 MG/DL (1.8-2.4); POTASSIUM 4.5 MMOL/L (3.6-5.0); TOTAL PROTEIN 6.8 G/DL (6.4-8.2)
[~2017-02-08] MED LIST changes: +ACET325T49 PO; +ALPR0.5T PO; +CEPH-507 PO; +CEPH250C PO; +CIPR500T4 PO; +ENOX40DI13 SQ; +MAGN800O PO; +OXYC-473 PO; +Oxycodone Hcl PO; +POLY17PO6 PO; +POTA10TA6 PO; +SENN-40 PO; +SIME80TA16 PO
== END | disposition home or self-care (01) ==
LOC: ONC 11-10 14:22
PROVIDERS: ATTEND Internal Medicine Hematology & Oncology
DX: C67.8 Malignant neoplasm of overlapping sites of bladder (principal); C77.5 Secondary and unspecified malignant neoplasm of intrapelvic lymph nodes; F17.210 Nicotine dependence, cigarettes, uncomplicated; Z45.2 Encounter for adjustment and management of vascular access device
CPT/HCPCS: 36415; 80053; 83615; 83735; 85025; 96523; 99213

== ENCOUNTER 2017-05-26 09:00 | Outpatient (RCR) | payer MEDICARE ==
[2017-04-21 11:14] LABS: BASOPHILS % (AUTO) 0 % (0-10); EOSINOPHILS # (AUTO) 0.2 10^3/uL (0.0-0.3); EOSINOPHILS % (AUTO) 2 % (0-10); LYMPHOCYTES # (AUTO) 1.7 X 10^3 (1.0-4.0); LYMPHOCYTES % (AUTO) 21 % (12-44); MEAN CORPUSCULAR HEMOGLOBIN 31 PG (25-34); MEAN CORPUSCULAR HGB CONC 33 G/DL (32-36); MEAN CORPUSCULAR VOLUME 92 FL (80-99); MEAN PLATELET VOLUME 9.2 FL (7.4-10.4); MONOCYTES % (AUTO) 13 % (0-12); NEUTROPHILS # (AUTO) 5.2 X 10^3 (1.8-7.8); NEUTROPHILS % (AUTO) 64 % (42-75); PLATELET COUNT 254 10^3/uL (130-400); RED BLOOD COUNT 4.29 10^6/uL (4.35-5.85); RED CELL DISTRIBUTION WIDTH 13.6 % (10.0-14.5); WHITE BLOOD COUNT 8.1 10^3/uL (4.3-11.0)
[2017-04-21 12:07] LABS: ALBUMIN 3.8 GM/DL (3.2-4.5); BILIRUBIN,TOTAL 0.5 MG/DL (0.1-1.0); CALCIUM 9.1 MG/DL (8.5-10.1); CREATININE SERUM 1.46 MG/DL (0.60-1.30); TOTAL PROTEIN 6.9 GM/DL (6.4-8.2)
== END 2017-05-30 | disposition home or self-care (01) ==
LOC: ONC 09:00
PROVIDERS: ATTEND Internal Medicine Hematology & Oncology
DX: C67.8 Malignant neoplasm of overlapping sites of bladder (principal); C77.5 Secondary and unspecified malignant neoplasm of intrapelvic lymph nodes; F17.210 Nicotine dependence, cigarettes, uncomplicated; Z45.2 Encounter for adjustment and management of vascular access device
CPT/HCPCS: 36591; 80053; 85025; 96523

== ENCOUNTER → 2017-06-30 | Outpatient (CLI) | payer MEDICARE | LOC: LAB 09:15 | PROVIDERS: ATTEND Urology | DX: C61 Malignant neoplasm of prostate (principal); C67.9 Malignant neoplasm of bladder, unspecified; E29.1 Testicular hypofunction | CPT/HCPCS: 36415; 84153 ==

== ENCOUNTER → 2017-07-06 | Outpatient (CLI) | payer MEDICARE ==
--- NOTE | 2017-07-06 15:28 | Diagnostic Imaging Report ---
PROCEDURE: CT chest with contrast. CT abdomen and pelvis with and without contrast. TECHNIQUE: Pre and post intravenous contrast axial imaging of the abdomen and pelvis and post contrast axial imaging of the chest were performed. INDICATION: Bladder cancer. CONTRAST: 75 mL of Omnipaque 350 was administered intravenously. FINDINGS: CT CHEST: There is no significant consolidation, mass, or suspicious nodule seen. There is a calcified granuloma measuring 3 mm in the right upper lobe. A 3 mm nodule along the inferior aspect of the right major fissure is seen, stable from the 05/24/2016 exam, probably a focal scar or noncalcified granuloma as well. No pleural or epicardial effusion. The heart size is at the upper limits of normal. There is no mediastinal mass. No significantly enlarged mediastinal or hilar lymphadenopathy. The axilla demonstrates no enlarged lymph nodes or masses. The osseous structures demonstrate mild degenerative change. CT ABDOMEN/PELVIS: The liver, gallbladder, spleen, pancreas, and adrenal glands appear unremarkable. The kidneys have symmetric enhancement and contrast excretion. No hydronephrosis. The unenhanced phase demonstrates no kidney stones. No ureteric stones are seen. The ureters demonstrate anastomosis into a right lower quadrant ileal conduit emptying into an ileostomy which demonstrates an adjacent parastomal fat-containing hernia. There is no bowel obstruction. There is diverticulosis. No diverticulitis. Surgical changes in the pelvis of lymph node dissection and radical cystectomy including prostate resection are seen. No significant free fluid or fluid collection in the abdomen or pelvis is noted. There is a new mildly enlarged left karen-aortic lymph node measuring 1 cm in short axis seen just below the right renal vessels. No pelvic lymphadenopathy except for a minimally prominent 9 mm left inguinal lymph node, slightly larger compared to prior exams. The osseous structures demonstrate mild degenerative changes in the SI joints and there is a sclerotic focus noted in the posterior aspect of the left iliac bone measuring 1.2 cm, similar to the 05/24/2016 exam, favored to be related to a bony island. IMPRESSION: CT CHEST: Stable 3 mm nodule along the inferior aspect of the right major fissure, likely a postinfectious noncalcified granuloma. No definite evidence of metastasis. CT ABDOMEN/PELVIS: 1. Minimally enlarged left karen-aortic lymph node measuring up to 1 cm in short axis, new from the prior exams. Although nonspecific, this is concerning for early tumor recurrence. There are also minimally prominent nonspecific left inguinal lymph nodes seen up to 9 mm in short axis, slightly larger compared to prior exams. Consider evaluation with a PET/CT or short-term followup. 2. Stable 1.2 cm sclerotic lesion in the posterior aspect of the left iliac bone, favored to be a bony island. Dictated by: Dictated on workstation # [id number]
== END ==
LOC: RAD 11:04
PROVIDERS: ATTEND Nurse Practitioner Adult Health
DX: C67.8 Malignant neoplasm of overlapping sites of bladder (principal); C77.5 Secondary and unspecified malignant neoplasm of intrapelvic lymph nodes; R91.1 Solitary pulmonary nodule; M89.9 Disorder of bone, unspecified
CPT/HCPCS: 71260; 74178

== ENCOUNTER 2017-07-07 09:54 | Outpatient (RCR) | payer MEDICARE ==
[2017-06-30 09:43] LABS: BASOPHILS % (AUTO) 1 % (0-10); EOSINOPHILS # (AUTO) 0.2 10^3/uL (0.0-0.3); EOSINOPHILS % (AUTO) 2 % (0-10); LYMPHOCYTES # (AUTO) 1.7 X 10^3 (1.0-4.0); LYMPHOCYTES % (AUTO) 19 % (12-44); MEAN CORPUSCULAR HEMOGLOBIN 31 PG (25-34); MEAN CORPUSCULAR HGB CONC 34 G/DL (32-36); MEAN CORPUSCULAR VOLUME 92 FL (80-99); MEAN PLATELET VOLUME 9.9 FL (7.4-10.4); MONOCYTES # (AUTO) 1.2 X 10^3 (0.0-1.0); MONOCYTES % (AUTO) 14 % (0-12); NEUTROPHILS # (AUTO) 5.6 X 10^3 (1.8-7.8); NEUTROPHILS % (AUTO) 65 % (42-75); PLATELET COUNT 233 10^3/uL (130-400); RED BLOOD COUNT 4.61 10^6/uL (4.35-5.85); RED CELL DISTRIBUTION WIDTH 13.5 % (10.0-14.5); WHITE BLOOD COUNT 8.6 10^3/uL (4.3-11.0)
[2017-06-30 10:06] LABS: ALBUMIN 3.9 GM/DL (3.2-4.5); BILIRUBIN,TOTAL 0.6 MG/DL (0.1-1.0); CALCIUM 9.4 MG/DL (8.5-10.1); CREATININE SERUM 1.67 MG/DL (0.60-1.30); POTASSIUM 4.5 MMOL/L (3.6-5.0); TOTAL PROTEIN 7.3 GM/DL (6.4-8.2)
[~2017-07-07 09:54] MED LIST changes: +NS IV 1000 ML (CANCER CTR) 1,000 ML ONE
== END 2017-07-17 | disposition home or self-care (01) ==
LOC: ONC 09:54
PROVIDERS: ATTEND Internal Medicine Hematology & Oncology
DX: C67.8 Malignant neoplasm of overlapping sites of bladder (principal); C77.5 Secondary and unspecified malignant neoplasm of intrapelvic lymph nodes; F17.210 Nicotine dependence, cigarettes, uncomplicated; Z45.2 Encounter for adjustment and management of vascular access device
CPT/HCPCS: 36591; 80053; 83615; 85025; 96360; 96361; 96523

== ENCOUNTER → 2017-07-27 | Outpatient (CLI) | payer MEDICARE ==
[~2017-07-27] MED LIST changes: -NS IV 1000 ML (CANCER CTR) 1,000 ML ONE
--- NOTE | 2017-07-27 14:27 | Diagnostic Imaging Report ---
EXAMINATION: PET-CT TECHNIQUE: Serum glucose level at the time of the study is: 92 mg/dL. 11.6 mCi of FDG was administered intravenously followed by obtaining PET images with corresponding noncontrast CT scan images. The CT scan was performed for anatomic correlation and attenuation correction and was not performed according to the diagnostic protocol of the areas covered. The scan was performed from the head to mid thighs. INDICATION: Bladder cancer. COMPARISON: Correlation with CT scan from 07/06/2017 and PET/CT from 09/15/2016 are reviewed. FINDINGS: There is symmetric FDG uptake in the brain. There is moderate intensity increased uptake seen in the oropharynx is probably related to the lymphoid tissue with physiologic or inflammatory etiology. There is moderate area of increased FDG uptake also seen involving the anterior aspect of the floor of the mouth and the tongue region on the right side. No obvious abnormality is seen on the associated localizer CT scan which is of limited evaluation however in this area. Correlate clinically. Inflammatory changes related to dental abnormalities are possible. In the chest, there are no significant hypermetabolic areas of activity seen. In the abdomen and pelvis, there is evidence of an ileal conduit and stoma in the right lower quadrant with ureteric anastomosis bilaterally into the ileal conduit. The pelvis demonstrates post-cystectomy changes. The previously seen left paraaortic lymph node on CT scan demonstrates mild increased FDG uptake with maximum SUV of 4. Very minimal FDG uptake is also seen in an aortocaval lymph node measuring 1 cm. IMPRESSION: 1. Mild FDG uptake in borderline enlarged right and left para-aortic lymph nodes are nonspecific but could relate to early metastasis. A followup CT or PET/CT in three months is recommended to reevaluate. 2. Moderate intensity increased FDG uptake in the anterior aspect of the oral cavity and tongue region to the right side of the midline is not associated with an obvious abnormality on the correlating localizer CT scan. This area is better evaluated with clinical exam however. Correlate clinically. Dictated by: Dictated on workstation # [id number]
== END ==
LOC: RAD 09:09
PROVIDERS: ATTEND Internal Medicine Hematology & Oncology
DX: R93.8 Abnormal findings on diagnostic imaging of other specified body structures (principal); C67.8 Malignant neoplasm of overlapping sites of bladder

== ENCOUNTER 2017-08-12 12:58 | Outpatient (RCR) | payer MEDICARE | END 2017-08-17 13:43 | disposition home or self-care (01) | LOC: ONC 12:58 | PROVIDERS: ATTEND Internal Medicine Hematology & Oncology | DX: Z51.0 Encounter for antineoplastic radiation therapy (principal); C67.8 Malignant neoplasm of overlapping sites of bladder; C77.5 Secondary and unspecified malignant neoplasm of intrapelvic lymph nodes; M89.9 Disorder of bone, unspecified; F17.210 Nicotine dependence, cigarettes, uncomplicated | CPT/HCPCS: 77290; 77334; 99213; 99214 ==

== ENCOUNTER 2017-09-08 10:25 | Outpatient (RCR) | payer MEDICARE ==
[2017-08-23 13:01] LABS: BASOPHILS % (AUTO) 0 % (0-10); EOSINOPHILS % (AUTO) 0 % (0-10); LYMPHOCYTES % (AUTO) 8 % (12-44); MEAN CORPUSCULAR HEMOGLOBIN 32 PG (25-34); MEAN CORPUSCULAR HGB CONC 35 G/DL (32-36); MEAN CORPUSCULAR VOLUME 92 FL (80-99); MEAN PLATELET VOLUME 9.8 FL (7.4-10.4); MONOCYTES # (AUTO) 0.1 X 10^3 (0.0-1.0); MONOCYTES % (AUTO) 1 % (0-12); NEUTROPHILS % (AUTO) 91 % (42-75); PLATELET COUNT 238 10^3/uL (130-400); RED BLOOD COUNT 4.49 10^6/uL (4.35-5.85); RED CELL DISTRIBUTION WIDTH 13.5 % (10.0-14.5); WHITE BLOOD COUNT 12.1 10^3/uL (4.3-11.0)
[2017-08-23 13:19] LABS: ALBUMIN 3.9 GM/DL (3.2-4.5); BILIRUBIN,TOTAL 0.4 MG/DL (0.1-1.0); CALCIUM 9.2 MG/DL (8.5-10.1); CREATININE SERUM 1.83 MG/DL (0.60-1.30); TOTAL PROTEIN 7.2 GM/DL (6.4-8.2)
[2017-08-30 12:34] LABS: BASOPHILS % (AUTO) 0 % (0-10); EOSINOPHILS % (AUTO) 0 % (0-10); LYMPHOCYTES # (AUTO) 0.6 X 10^3 (1.0-4.0); LYMPHOCYTES % (AUTO) 5 % (12-44); MEAN CORPUSCULAR HEMOGLOBIN 31 PG (25-34); MEAN CORPUSCULAR HGB CONC 34 G/DL (32-36); MEAN CORPUSCULAR VOLUME 91 FL (80-99); MEAN PLATELET VOLUME 9.7 FL (7.4-10.4); MONOCYTES # (AUTO) 0.2 X 10^3 (0.0-1.0); MONOCYTES % (AUTO) 2 % (0-12); NEUTROPHILS % (AUTO) 93 % (42-75); PLATELET COUNT 224 10^3/uL (130-400); RED BLOOD COUNT 4.43 10^6/uL (4.35-5.85); WHITE BLOOD COUNT 10.7 10^3/uL (4.3-11.0)
[2017-08-30 12:53] LABS: CALCIUM 9.2 MG/DL (8.5-10.1); CREATININE SERUM 1.46 MG/DL (0.60-1.30); POTASSIUM 4.2 MMOL/L (3.6-5.0)
[2017-09-06 12:44] LABS: BASOPHILS % (AUTO) 0 % (0-10); EOSINOPHILS % (AUTO) 0 % (0-10); LYMPHOCYTES # (AUTO) 0.5 X 10^3 (1.0-4.0); LYMPHOCYTES % (AUTO) 5 % (12-44); MEAN CORPUSCULAR HEMOGLOBIN 32 PG (25-34); MEAN CORPUSCULAR HGB CONC 34 G/DL (32-36); MEAN CORPUSCULAR VOLUME 92 FL (80-99); MEAN PLATELET VOLUME 9.6 FL (7.4-10.4); MONOCYTES # (AUTO) 0.1 X 10^3 (0.0-1.0); MONOCYTES % (AUTO) 1 % (0-12); NEUTROPHILS # (AUTO) 9.1 X 10^3 (1.8-7.8); NEUTROPHILS % (AUTO) 94 % (42-75); PLATELET COUNT 207 10^3/uL (130-400); RED BLOOD COUNT 4.38 10^6/uL (4.35-5.85); RED CELL DISTRIBUTION WIDTH 13.4 % (10.0-14.5); WHITE BLOOD COUNT 9.7 10^3/uL (4.3-11.0)
[2017-09-06 12:58] LABS: CALCIUM 9.5 MG/DL (8.5-10.1); CREATININE SERUM 1.56 MG/DL (0.60-1.30); POTASSIUM 3.9 MMOL/L (3.6-5.0)
[~2017-09-08] VITALS: Ht 179.1 cm; Wt 95.3 kg
[~2017-09-08 10:25] MED LIST changes: +FAMOTIDINE 20MG/2ML IV (CANCER CTR) IV SCH; +NORMAL SALINE IV SCH; +NS IV 1000 ML (CANCER CTR) IV SCH; +PACLITAXEL IV SCH; +PALONOSETRON 0.25 MG, DEXAMETHASONE 10 MG/NS 50 ML IVPB IV PRN; +diphenhydrAMINE 25 MG TAB (BENADRYL) CANCER CENTER PO SCH; +diphenhydrAMINE 50 MG/ML INJ (CANCER CENTER) IV SCH
== END 2017-09-08 14:44 | disposition home or self-care (01) ==
LOC: ONC 10:25
PROVIDERS: ATTEND Internal Medicine Hematology & Oncology
DX: Z51.0 Encounter for antineoplastic radiation therapy (principal); C67.8 Malignant neoplasm of overlapping sites of bladder; C77.5 Secondary and unspecified malignant neoplasm of intrapelvic lymph nodes; M89.9 Disorder of bone, unspecified; F17.210 Nicotine dependence, cigarettes, uncomplicated
CPT/HCPCS: 36591; 77295; 77300; 77334; 77336; 77417; 77470; 80048; 80053; 85025; 96375; 96413; 99213

== ENCOUNTER → 2017-11-08 | Outpatient (CLI) | payer MEDICARE ==
[~2017-11-08] MED LIST changes: +BARIUM SUSPENSION 2.1% (VANILLA SILQ) 450 ML PO ONE; -FAMOTIDINE 20MG/2ML IV (CANCER CTR) IV SCH; +HEParin (CENTRAL IV FLUSH) 500 UNIT/5 ML SYR IV ONE; +IOHEXOL 350 MG/ML 100 ML (OMNIPAQUE 350) VIAL IV ONE; -NORMAL SALINE IV SCH; +NS 100 ML (IVPB) BAG IV ONE; -NS IV 1000 ML (CANCER CTR) IV SCH; -PACLITAXEL IV SCH; -PALONOSETRON 0.25 MG, DEXAMETHASONE 10 MG/NS 50 ML IVPB IV PRN; -diphenhydrAMINE 25 MG TAB (BENADRYL) CANCER CENTER PO SCH; -diphenhydrAMINE 50 MG/ML INJ (CANCER CENTER) IV SCH
--- NOTE | 2017-11-08 14:37 | Diagnostic Imaging Report ---
PROCEDURE: CT chest, abdomen, and pelvis with contrast. TECHNIQUE: Multiple contiguous axial images were obtained through the chest, abdomen, and pelvis after the administration of intravenous contrast. INDICATION: Bladder carcinoma, status post cystectomy. The study is performed for followup. COMPARISON: Comparison is made with prior CT from 07/06/2017 and PET scan from 07/27/2017. FINDINGS: CT chest: A right chest wall port has the tip at the SVC right atrial junction. No axillary lymphadenopathy is identified. No mediastinal or hilar lymphadenopathy is identified. No pericardial or pleural fluid is detected. A tiny nodule in the posterior lateral right upper lobe, image 13 is stable. The small nodule adjacent to the major fissure on the right also appear stable, image 37. There is some scarring or atelectasis in the posterior right lower lobe. No new mass is seen. IMPRESSION: Stable CT chest when compared with prior exams. CT abdomen and pelvis: No discrete liver mass is identified. The gallbladder is unremarkable. The pancreas and spleen are unremarkable. No adrenal mass is identified. Bilateral renal low density masses are stable consistent with cysts. Aorta is calcified but nonaneurysmal. Previously noted prominent lymph nodes in the left periaortic and aortocaval location are significantly improved and barely visible on today's study. Right lower quadrant ostomy is again noted. The bowel loops appear to be of normal caliber. Imaging through the pelvis demonstrates surgical clips from cystectomy. A lymph node in the left groin previously measured is 7 mm short axis compared with 9 mm. Additional lymph nodes in left groin also appear to be smaller. No iliac lymphadenopathy is seen. Sclerotic focus in the posterior left iliac bone is stable. IMPRESSION: Overall improved appearance to the abdomen and pelvis when compared with prior CT from 07/06/2017. Central retroperitoneal and left inguinal lymph nodes demonstrate decrease in size. The central retroperitoneal nodes are barely visible on today's exam. No new abnormality is detected. Dictated by: Dictated on workstation # [id number]
== END ==
LOC: RAD 11:02
PROVIDERS: ATTEND Internal Medicine Hematology & Oncology
DX: C67.8 Malignant neoplasm of overlapping sites of bladder (principal); C77.2 Secondary and unspecified malignant neoplasm of intra-abdominal lymph nodes; Z90.6 Acquired absence of other parts of urinary tract
CPT/HCPCS: 71260; 74177

== ENCOUNTER 2017-11-10 09:07 | Outpatient (RCR) | payer MEDICARE ==
[2017-09-13 13:47] LABS: BASOPHILS % (AUTO) 0 % (0-10); EOSINOPHILS # (AUTO) 0.6 10^3/uL (0.0-0.3); EOSINOPHILS % (AUTO) 8 % (0-10); HEMATOCRIT 38 % (40-54); HEMOGLOBIN 12.9 G/DL (13.3-17.7); LYMPHOCYTES # (AUTO) 0.9 X 10^3 (1.0-4.0); LYMPHOCYTES % (AUTO) 12 % (12-44); MEAN CORPUSCULAR HEMOGLOBIN 32 PG (25-34); MEAN CORPUSCULAR HGB CONC 34 G/DL (32-36); MEAN CORPUSCULAR VOLUME 92 FL (80-99); MEAN PLATELET VOLUME 9.3 FL (7.4-10.4); MONOCYTES # (AUTO) 0.8 X 10^3 (0.0-1.0); MONOCYTES % (AUTO) 11 % (0-12); NEUTROPHILS # (AUTO) 5.3 X 10^3 (1.8-7.8); NEUTROPHILS % (AUTO) 69 % (42-75); PLATELET COUNT 183 10^3/uL (130-400); RED BLOOD COUNT 4.07 10^6/uL (4.35-5.85); RED CELL DISTRIBUTION WIDTH 13.2 % (10.0-14.5); WHITE BLOOD COUNT 7.7 10^3/uL (4.3-11.0)
[2017-09-13 14:06] LABS: ALBUMIN 3.6 GM/DL (3.2-4.5); BILIRUBIN,TOTAL 0.3 MG/DL (0.1-1.0); CALCIUM 8.9 MG/DL (8.5-10.1); CREATININE SERUM 1.52 MG/DL (0.60-1.30); POTASSIUM 3.9 MMOL/L (3.6-5.0); TOTAL PROTEIN 6.6 GM/DL (6.4-8.2)
[2017-09-20 12:42] LABS: BASOPHILS % (AUTO) 0 % (0-10); EOSINOPHILS # (AUTO) 0.4 10^3/uL (0.0-0.3); EOSINOPHILS % (AUTO) 5 % (0-10); HEMATOCRIT 38 % (40-54); HEMOGLOBIN 12.7 G/DL (13.3-17.7); LYMPHOCYTES # (AUTO) 0.9 X 10^3 (1.0-4.0); LYMPHOCYTES % (AUTO) 13 % (12-44); MEAN CORPUSCULAR HEMOGLOBIN 32 PG (25-34); MEAN CORPUSCULAR HGB CONC 34 G/DL (32-36); MEAN CORPUSCULAR VOLUME 93 FL (80-99); MEAN PLATELET VOLUME 9.4 FL (7.4-10.4); MONOCYTES # (AUTO) 0.9 X 10^3 (0.0-1.0); MONOCYTES % (AUTO) 13 % (0-12); NEUTROPHILS # (AUTO) 4.7 X 10^3 (1.8-7.8); NEUTROPHILS % (AUTO) 69 % (42-75); PLATELET COUNT 189 10^3/uL (130-400); RED BLOOD COUNT 4.03 10^6/uL (4.35-5.85); RED CELL DISTRIBUTION WIDTH 13.4 % (10.0-14.5); WHITE BLOOD COUNT 6.9 10^3/uL (4.3-11.0)
[2017-09-20 13:00] LABS: CALCIUM 8.6 MG/DL (8.5-10.1); CREATININE SERUM 1.3 MG/DL (0.60-1.30); POTASSIUM 3.8 MMOL/L (3.6-5.0)
[2017-09-27 13:00] LABS: BASOPHILS % (AUTO) 1 % (0-10); EOSINOPHILS # (AUTO) 0.3 10^3/uL (0.0-0.3); EOSINOPHILS % (AUTO) 5 % (0-10); HEMATOCRIT 37 % (40-54); HEMOGLOBIN 12.8 G/DL (13.3-17.7); LYMPHOCYTES # (AUTO) 0.8 X 10^3 (1.0-4.0); LYMPHOCYTES % (AUTO) 13 % (12-44); MEAN CORPUSCULAR HEMOGLOBIN 32 PG (25-34); MEAN CORPUSCULAR HGB CONC 34 G/DL (32-36); MEAN CORPUSCULAR VOLUME 94 FL (80-99); MEAN PLATELET VOLUME 9.3 FL (7.4-10.4); MONOCYTES # (AUTO) 0.9 X 10^3 (0.0-1.0); MONOCYTES % (AUTO) 15 % (0-12); NEUTROPHILS % (AUTO) 66 % (42-75); PLATELET COUNT 197 10^3/uL (130-400); RED BLOOD COUNT 3.99 10^6/uL (4.35-5.85); RED CELL DISTRIBUTION WIDTH 13.8 % (10.0-14.5); WHITE BLOOD COUNT 6.1 10^3/uL (4.3-11.0)
[2017-09-27 13:16] LABS: CALCIUM 8.9 MG/DL (8.5-10.1); CREATININE SERUM 1.5 MG/DL (0.60-1.30); POTASSIUM 3.8 MMOL/L (3.6-5.0)
[2017-10-05 14:02] LABS: BASOPHILS % (AUTO) 0 % (0-10); EOSINOPHILS # (AUTO) 0.2 10^3/uL (0.0-0.3); EOSINOPHILS % (AUTO) 2 % (0-10); HEMATOCRIT 37 % (40-54); HEMOGLOBIN 12.6 G/DL (13.3-17.7); LYMPHOCYTES % (AUTO) 14 % (12-44); MEAN CORPUSCULAR HEMOGLOBIN 32 PG (25-34); MEAN CORPUSCULAR HGB CONC 34 G/DL (32-36); MEAN CORPUSCULAR VOLUME 94 FL (80-99); MEAN PLATELET VOLUME 9.3 FL (7.4-10.4); MONOCYTES # (AUTO) 1.4 X 10^3 (0.0-1.0); MONOCYTES % (AUTO) 18 % (0-12); NEUTROPHILS # (AUTO) 4.8 X 10^3 (1.8-7.8); NEUTROPHILS % (AUTO) 66 % (42-75); PLATELET COUNT 209 10^3/uL (130-400); RED BLOOD COUNT 3.94 10^6/uL (4.35-5.85); WHITE BLOOD COUNT 7.4 10^3/uL (4.3-11.0)
[2017-10-05 14:26] LABS: ALBUMIN 3.6 GM/DL (3.2-4.5); BILIRUBIN,TOTAL 0.3 MG/DL (0.1-1.0); CALCIUM 8.8 MG/DL (8.5-10.1); CREATININE SERUM 1.38 MG/DL (0.60-1.30); TOTAL PROTEIN 6.1 GM/DL (6.4-8.2)
[2017-11-08 09:58] VITALS: BP 151/84
[~2017-11-10] VITALS: Ht 179.1 cm; Wt 94.8 kg
[~2017-11-10 09:07] MED LIST changes: -BARIUM SUSPENSION 2.1% (VANILLA SILQ) 450 ML PO ONE; +FAMOTIDINE 20MG/2ML IV (CANCER CTR) IV SCH; -HEParin (CENTRAL IV FLUSH) 500 UNIT/5 ML SYR IV ONE; +HEParin (CENTRAL IV FLUSH) 500 UNIT/5 ML SYR ONE; -IOHEXOL 350 MG/ML 100 ML (OMNIPAQUE 350) VIAL IV ONE; +NORMAL SALINE IV SCH; -NS 100 ML (IVPB) BAG IV ONE; +NS IV 1000 ML (CANCER CTR) IV SCH; +NS IV 1000 ML 1,000 ML ONE; +PACLITAXEL IV SCH; +PALONOSETRON 0.25 MG, DEXAMETHASONE 10 MG/NS 50 ML IVPB IV PRN; +diphenhydrAMINE 25 MG TAB (BENADRYL) CANCER CENTER PO SCH
[2017-11-10 10:27] LABS: BASOPHILS % (AUTO) 0 % (0-10); EOSINOPHILS # (AUTO) 0.2 10^3/uL (0.0-0.3); EOSINOPHILS % (AUTO) 2 % (0-10); HEMATOCRIT 40 % (40-54); HEMOGLOBIN 13.8 G/DL (13.3-17.7); LYMPHOCYTES # (AUTO) 1.2 X 10^3 (1.0-4.0); LYMPHOCYTES % (AUTO) 16 % (12-44); MEAN CORPUSCULAR HEMOGLOBIN 32 PG (25-34); MEAN CORPUSCULAR HGB CONC 35 G/DL (32-36); MEAN CORPUSCULAR VOLUME 93 FL (80-99); MEAN PLATELET VOLUME 9.6 FL (7.4-10.4); MONOCYTES # (AUTO) 0.8 X 10^3 (0.0-1.0); MONOCYTES % (AUTO) 11 % (0-12); NEUTROPHILS # (AUTO) 5.2 X 10^3 (1.8-7.8); NEUTROPHILS % (AUTO) 70 % (42-75); PLATELET COUNT 205 10^3/uL (130-400); RED BLOOD COUNT 4.26 10^6/uL (4.35-5.85); RED CELL DISTRIBUTION WIDTH 13.8 % (10.0-14.5); WHITE BLOOD COUNT 7.4 10^3/uL (4.3-11.0)
[2017-11-10 10:45] LABS: ALBUMIN 3.8 GM/DL (3.2-4.5); BILIRUBIN,TOTAL 0.5 MG/DL (0.1-1.0); CREATININE SERUM 1.43 MG/DL (0.60-1.30); POTASSIUM 3.9 MMOL/L (3.6-5.0); TOTAL PROTEIN 6.7 GM/DL (6.4-8.2)
== END 2017-12-12 | disposition home or self-care (01) ==
LOC: ONC 09:07
PROVIDERS: ATTEND Internal Medicine Hematology & Oncology
DX: Z51.0 Encounter for antineoplastic radiation therapy (principal); Z51.11 Encounter for antineoplastic chemotherapy; C67.8 Malignant neoplasm of overlapping sites of bladder; C61 Malignant neoplasm of prostate; C77.5 Secondary and unspecified malignant neoplasm of intrapelvic lymph nodes; D64.9 Anemia, unspecified; M89.9 Disorder of bone, unspecified; F17.210 Nicotine dependence, cigarettes, uncomplicated; Z79.899 Other long term (current) drug therapy
CPT/HCPCS: 36591; 77336; 77417; 80048; 80053; 83615; 85025; 96360; 96375; 96413; 99213

== ENCOUNTER → 2018-01-31 | Outpatient (CLI) | payer MEDICARE ==
[~2018-01-31] MED LIST changes: +BARIUM SUSPENSION 2.1% (VANILLA SILQ) 450 ML PO ONE; +CATHETER FLUSH 10 ML SYR IV PRN; -FAMOTIDINE 20MG/2ML IV (CANCER CTR) IV SCH; -HEParin (CENTRAL IV FLUSH) 500 UNIT/5 ML SYR ONE; +IOHEXOL 350 MG/ML 100 ML (OMNIPAQUE 350) VIAL IV ONE; -NORMAL SALINE IV SCH; +NS 250 ML (IVPB) BAG IV ONE; -NS IV 1000 ML (CANCER CTR) IV SCH; -NS IV 1000 ML 1,000 ML ONE; -PACLITAXEL IV SCH; -PALONOSETRON 0.25 MG, DEXAMETHASONE 10 MG/NS 50 ML IVPB IV PRN; -diphenhydrAMINE 25 MG TAB (BENADRYL) CANCER CENTER PO SCH
--- NOTE | 2018-01-31 11:25 | Diagnostic Imaging Report ---
PROCEDURE: CT chest with contrast, CT abdomen and pelvis with and without contrast. TECHNIQUE: Pre and post intravenous contrast axial imaging of the abdomen and pelvis and post contrast axial imaging of the chest were performed. 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 COMPARISON: Comparison is made with prior CT from 11/08/2017. FINDINGS: CT CHEST: Right chest wall port remains in place with tip within the SVC near the right atrial junction. No axillary, hilar or mediastinal lymphadenopathy is seen. No pericardial or pleural fluid is detected. Tiny nodule in the right upper lobe image 13 is stable. Tiny nodule adjacent to the major fissure in the superior segment of the right lower lobe, image 38 is stable. Scarring in the lingula and right lower lobe is again noted. No new parenchymal mass is seen. IMPRESSION: Stable CT chest when compared with exam from 11/08/2017. Right upper and right lower lobe pulmonary nodules are stable. No thoracic lymphadenopathy is detected. CT ABDOMEN AND PELVIS: No discrete liver mass is seen. Gallbladder is unremarkable. The pancreas and spleen are unremarkable. No adrenal mass is detected. Previously noted renal cysts are stable. Aorta and iliac vessels are calcified but nonaneurysmal. No pathologically enlarged central retroperitoneal lymph nodes are present. Imaging through the pelvis again demonstrates postsurgical changes of a cystectomy. There are lymph nodes in the groins bilaterally as well as along the left pelvic sidewall. Previously measured left groin lymph node is stable at 7 mm short axis. No pathologically enlarged pelvic lymph nodes are seen. A conduit and right lower quadrant ostomy are again noted. The visualized bowel loops are normal caliber. There is no ascites. IMPRESSION: Stable CT of the abdomen and pelvis when compared with exam from 11/08/2017. No pathologically enlarged abdominal or pelvic lymph nodes are present. No findings to suggest metastatic disease are seen. Dictated by: Dictated on workstation # [id number]
--- NOTE | 2018-01-31 13:57 | Diagnostic Imaging Report ---
INDICATION: Bladder carcinoma. Patient was administered 27.3 mCi of technetium-99m MDP intravenously and whole body imaging was performed after a three-hour delay. No prior bone scans are available for comparison. FINDINGS: There is normal uptake of activity by the axial and appendicular skeleton. There is uptake by the kidneys with excretion into the patient's right lower quadrant conduit. The bladder has been surgically removed. No abnormal foci of tracer accumulation is seen to suggest osseous metastatic disease. IMPRESSION: Unremarkable whole body bone scan. Dictated by: Dictated on workstation # [id number]
== END ==
LOC: CARD 09:50
PROVIDERS: ATTEND Internal Medicine Hematology & Oncology
DX: C67.8 Malignant neoplasm of overlapping sites of bladder (principal); C77.2 Secondary and unspecified malignant neoplasm of intra-abdominal lymph nodes
CPT/HCPCS: 71260; 74178; 78306

== ENCOUNTER 2018-03-15 09:52 | Outpatient (RCR) | payer MEDICARE ==
[2018-01-31 09:51] LABS: BASOPHILS % (AUTO) 0 % (0-10); EOSINOPHILS # (AUTO) 0.2 10^3/uL (0.0-0.3); EOSINOPHILS % (AUTO) 3 % (0-10); HEMATOCRIT 41 % (40-54); HEMOGLOBIN 13.7 G/DL (13.3-17.7); LYMPHOCYTES # (AUTO) 1.3 X 10^3 (1.0-4.0); LYMPHOCYTES % (AUTO) 17 % (12-44); MEAN CORPUSCULAR HEMOGLOBIN 30 PG (25-34); MEAN CORPUSCULAR HGB CONC 33 G/DL (32-36); MEAN CORPUSCULAR VOLUME 92 FL (80-99); MEAN PLATELET VOLUME 9.3 FL (7.4-10.4); MONOCYTES # (AUTO) 0.9 X 10^3 (0.0-1.0); MONOCYTES % (AUTO) 12 % (0-12); NEUTROPHILS # (AUTO) 5.1 X 10^3 (1.8-7.8); NEUTROPHILS % (AUTO) 68 % (42-75); PLATELET COUNT 216 10^3/uL (130-400); RED CELL DISTRIBUTION WIDTH 13.4 % (10.0-14.5); WHITE BLOOD COUNT 7.5 10^3/uL (4.3-11.0)
[2018-01-31 10:11] LABS: ALBUMIN 3.9 GM/DL (3.2-4.5); BILIRUBIN,TOTAL 0.4 MG/DL (0.1-1.0); CALCIUM 9.2 MG/DL (8.5-10.1); CREATININE SERUM 1.32 MG/DL (0.60-1.30); POTASSIUM 4.2 MMOL/L (3.6-5.0); TOTAL PROTEIN 6.8 GM/DL (6.4-8.2)
[~2018-03-15 09:52] MED LIST changes: -BARIUM SUSPENSION 2.1% (VANILLA SILQ) 450 ML PO ONE; -CATHETER FLUSH 10 ML SYR IV PRN; -IOHEXOL 350 MG/ML 100 ML (OMNIPAQUE 350) VIAL IV ONE; -NS 250 ML (IVPB) BAG IV ONE
== END 2018-03-20 | disposition home or self-care (01) ==
LOC: ONC 09:52
PROVIDERS: ATTEND Internal Medicine Hematology & Oncology
DX: C67.8 Malignant neoplasm of overlapping sites of bladder (principal); C77.5 Secondary and unspecified malignant neoplasm of intrapelvic lymph nodes; M89.9 Disorder of bone, unspecified; F17.210 Nicotine dependence, cigarettes, uncomplicated; Z45.2 Encounter for adjustment and management of vascular access device
CPT/HCPCS: 36591; 80053; 83615; 85025; 96523; 99213

== ENCOUNTER → 2018-04-25 | Outpatient (CLI) | payer MEDICARE ==
[~2018-04-25] MED LIST changes: +BARIUM SUSPENSION 2.1% (VANILLA SILQ) 450 ML PO ONE; +CATHETER FLUSH 10 ML SYR IV PRN; +IOHEXOL 350 MG/ML 100 ML (OMNIPAQUE 350) VIAL IV ONE; +NS 100 ML (IVPB) BAG IV ONE
--- NOTE | 2018-04-25 14:46 | Diagnostic Imaging Report ---
PROCEDURE: CT chest, abdomen, and pelvis with and without contrast. TECHNIQUE: Precontrast images were obtained of the chest, abdomen, and pelvis. Multiple contiguous axial images were obtained through the chest, abdomen, and pelvis after administration of intravenous contrast. INDICATION: Bladder carcinoma, followup. COMPARISON: Comparison is made with prior CT from 01/31/2018. FINDINGS: CT CHEST: A right chest wall port has tip at the SVC right atrial junction. No axillary lymphadenopathy is identified. No hilar or mediastinal lymphadenopathy is identified. No pericardial or pleural fluid is detected. Previously noted tiny nodule in the right upper lobe, image 14 is stable. Tiny nodule adjacent to the major fissure in the right lower lobe image 38 appears stable. No new pulmonary nodules are seen. There is some scarring or atelectasis in the right lower lobe and lingula. IMPRESSION: Stable right upper and right lower lobe pulmonary nodules since study from 01/31/2018. No thoracic lymphadenopathy is seen. CT ABDOMEN AND PELVIS: No discrete liver mass is detected. The gallbladder is unremarkable. The pancreas and spleen are unremarkable. No adrenal mass is detected. Bilateral renal cysts are again noted. Aorta is calcified but nonaneurysmal. No central retroperitoneal or mesenteric lymphadenopathy is seen. Right lower quadrant ostomy is again noted. Small and large bowel loops are normal caliber. There is no ascites. The bladder is surgically absent. Normal sized lymph nodes in the groin are stable. No iliac lymphadenopathy is seen. Sclerotic focus left iliac bone is stable. IMPRESSION: Stable CT of the abdomen and pelvis when compared with exam from 01/31/2018. No adenopathy is detected. No new abnormality is seen. Dictated by: Dictated on workstation # [id number]
--- NOTE | 2018-04-25 16:16 | Diagnostic Imaging Report ---
INDICATION: Restage neoplasm. TECHNIQUE: The patient was administered 26.9 mCi technetium 99m MDP intravenously and whole-body imaging was performed after 3 hour delay. COMPARISON: Correlation is made with prior bone scan from 01/31/2018. FINDINGS: Normal uptake of activity by the axial and appendicular skeleton is noted. There is uptake by both kidneys with excretion into the patient's conduit in the right lower quadrant. No abnormal foci of tracer accumulation is seen to suggest osseous metastatic disease. IMPRESSION: No scintigraphic evidence of osseous metastatic disease. Dictated by: Dictated on workstation # [id number]
== END ==
LOC: CARD 11:13
PROVIDERS: ATTEND Internal Medicine Hematology & Oncology
DX: Z01.89 Encounter for other specified special examinations (principal); C67.9 Malignant neoplasm of bladder, unspecified; C77.9 Secondary and unspecified malignant neoplasm of lymph node, unspecified
CPT/HCPCS: 71270; 74178; 78306

== ENCOUNTER 2018-06-09 09:37 | Outpatient (RCR) | payer MEDICARE ==
[2018-04-25 11:01] LABS: BASOPHILS % (AUTO) 0 % (0-10); EOSINOPHILS # (AUTO) 0.2 10^3/uL (0.0-0.3); EOSINOPHILS % (AUTO) 2 % (0-10); HEMATOCRIT 40 % (40-54); HEMOGLOBIN 13.7 G/DL (13.3-17.7); LYMPHOCYTES # (AUTO) 1.4 X 10^3 (1.0-4.0); LYMPHOCYTES % (AUTO) 18 % (12-44); MEAN CORPUSCULAR HEMOGLOBIN 31 PG (25-34); MEAN CORPUSCULAR HGB CONC 34 G/DL (32-36); MEAN CORPUSCULAR VOLUME 93 FL (80-99); MEAN PLATELET VOLUME 9.2 FL (7.4-10.4); MONOCYTES # (AUTO) 0.9 X 10^3 (0.0-1.0); MONOCYTES % (AUTO) 11 % (0-12); NEUTROPHILS # (AUTO) 5.2 X 10^3 (1.8-7.8); NEUTROPHILS % (AUTO) 69 % (42-75); PLATELET COUNT 248 10^3/uL (130-400); RED BLOOD COUNT 4.36 10^6/uL (4.35-5.85); RED CELL DISTRIBUTION WIDTH 14.1 % (10.0-14.5); WHITE BLOOD COUNT 7.6 10^3/uL (4.3-11.0)
[2018-04-25 11:21] LABS: ALBUMIN 3.9 GM/DL (3.2-4.5); BILIRUBIN,TOTAL 0.5 MG/DL (0.1-1.0); CALCIUM 8.9 MG/DL (8.5-10.1); CREATININE SERUM 1.5 MG/DL (0.60-1.30); POTASSIUM 4.3 MMOL/L (3.6-5.0); TOTAL PROTEIN 6.8 GM/DL (6.4-8.2)
[~2018-06-09 09:37] MED LIST changes: -BARIUM SUSPENSION 2.1% (VANILLA SILQ) 450 ML PO ONE; -CATHETER FLUSH 10 ML SYR IV PRN; -IOHEXOL 350 MG/ML 100 ML (OMNIPAQUE 350) VIAL IV ONE; -NS 100 ML (IVPB) BAG IV ONE; +NS IV 1000 ML (CANCER CTR) 1,000 ML ONE
[2018-07-21 10:31] LABS: BASOPHILS % (AUTO) 0 % (0-10); EOSINOPHILS # (AUTO) 0.1 10^3/uL (0.0-0.3); EOSINOPHILS % (AUTO) 2 % (0-10); HEMATOCRIT 38 % (40-54); HEMOGLOBIN 13.3 G/DL (13.3-17.7); LYMPHOCYTES # (AUTO) 1.4 X 10^3 (1.0-4.0); LYMPHOCYTES % (AUTO) 17 % (12-44); MEAN CORPUSCULAR HEMOGLOBIN 32 PG (25-34); MEAN CORPUSCULAR HGB CONC 35 G/DL (32-36); MEAN CORPUSCULAR VOLUME 93 FL (80-99); MEAN PLATELET VOLUME 9.4 FL (7.4-10.4); MONOCYTES # (AUTO) 0.9 X 10^3 (0.0-1.0); MONOCYTES % (AUTO) 11 % (0-12); NEUTROPHILS # (AUTO) 5.7 X 10^3 (1.8-7.8); NEUTROPHILS % (AUTO) 70 % (42-75); PLATELET COUNT 235 10^3/uL (130-400); RED BLOOD COUNT 4.12 10^6/uL (4.35-5.85); RED CELL DISTRIBUTION WIDTH 13.6 % (10.0-14.5); WHITE BLOOD COUNT 8.2 10^3/uL (4.3-11.0)
[2018-07-21 10:50] LABS: ALBUMIN 3.7 GM/DL (3.2-4.5); BILIRUBIN,TOTAL 0.5 MG/DL (0.1-1.0); CREATININE SERUM 1.26 MG/DL (0.60-1.30); POTASSIUM 4.1 MMOL/L (3.6-5.0); TOTAL PROTEIN 6.6 GM/DL (6.4-8.2)
== END 2018-07-21 10:04 | disposition home or self-care (01) ==
LOC: ONC 09:37
PROVIDERS: ATTEND Internal Medicine Hematology & Oncology
DX: C67.8 Malignant neoplasm of overlapping sites of bladder (principal); C77.5 Secondary and unspecified malignant neoplasm of intrapelvic lymph nodes; M89.9 Disorder of bone, unspecified; F17.210 Nicotine dependence, cigarettes, uncomplicated; Z01.89 Encounter for other specified special examinations
CPT/HCPCS: 36591; 71270; 74178; 78306; 80053; 83615; 85025; 96360; 99213

== ENCOUNTER → 2018-07-21 | Outpatient (CLI) | payer MEDICARE ==
[~2018-07-21] MED LIST changes: +BARIUM SUSPENSION 2.1% (VANILLA SILQ) 450 ML PO ONE; +CATHETER FLUSH 10 ML SYR IV PRN; +IOHEXOL 350 MG/ML 100 ML (OMNIPAQUE 350) VIAL IV ONE; +NS 250 ML (IVPB) BAG IV ONE; -NS IV 1000 ML (CANCER CTR) 1,000 ML ONE
--- NOTE | 2018-07-21 13:15 | Diagnostic Imaging Report ---
PROCEDURE: CT chest, abdomen, and pelvis with contrast. TECHNIQUE: Multiple contiguous axial images were obtained through the chest, abdomen, and pelvis after the administration of intravenous contrast. INDICATION: Bladder carcinoma, followup. COMPARISON: Comparison is made with prior CT from 04/25/2018. CT CHEST: A right chest wall port remains in place with the tip at the SVC right atrial junction. No axillary, hilar, or mediastinal lymphadenopathy is seen. No pericardial or pleural fluid is detected. Parenchymal evaluation shows the central airways to be patent. Tiny nodule in the right upper lobe, image 13, is stable. Tiny nodule adjacent to the right major fissure is also stable, image 36. No new nodule is seen. There is scarring or atelectasis in the lingula and right lower lobe. IMPRESSION: Stable right-sided pulmonary nodules when compared to study from 04/25/2018. No thoracic lymphadenopathy is seen. CT ABDOMEN AND PELVIS: The liver and gallbladder are unremarkable. The pancreas and spleen are unremarkable. No adrenal mass is identified. Bilateral renal circumscribed low-density masses appear stable and suggestive of cysts. The aorta is non-aneurysmal. No central retroperitoneal or mesenteric lymphadenopathy is seen. The ostomy in the right lower quadrant is again noted. Bladder has been surgically resected. There is no free fluid identified. There is sigmoid diverticulosis without evidence of acute diverticulitis. No pelvic lymphadenopathy is seen. A sclerotic focus in the left iliac bone, image 105, appears stable. IMPRESSION: Stable CT of the abdomen and pelvis when compared with prior study from 04/25/2018. No definite findings of metastatic disease are identified. Dictated by: Dictated on workstation # [id number]
--- NOTE | 2018-07-21 16:30 | Diagnostic Imaging Report ---
INDICATION: Bladder cancer. TECHNIQUE: Patient was administered 26.8 mCi technetium 99m MDP intravenously and whole body imaging was performed after a three-hour delay. COMPARISON: Correlation is made with prior whole body bone scan from 04/25/2018. FINDINGS: Normal uptake of activity by the axial and appendicular skeleton is seen. Uptake by both kidneys is noted. There is excretion of activity into the right lower quadrant ostomy. There is a tiny focus of uptake identified at the xiphoid process of the sternum, not present on prior exam. No CT correlate is identified. The remainder of the study is unremarkable. IMPRESSION: Unremarkable whole body bone scan apart from a tiny focus of uptake near the xiphoid process of the sternum, indeterminate. Continued followup is recommended. Dictated by: Dictated on workstation # [id number]
== END ==
LOC: RAD 10:32
PROVIDERS: ATTEND Internal Medicine Hematology & Oncology
DX: C77.2 Secondary and unspecified malignant neoplasm of intra-abdominal lymph nodes (principal); C67.9 Malignant neoplasm of bladder, unspecified; R91.8 Other nonspecific abnormal finding of lung field
CPT/HCPCS: 71260; 74177; 78306

== ENCOUNTER 2018-10-13 09:27 | Outpatient (RCR) | payer MEDICARE ==
[~2018-10-13 09:27] MED LIST changes: -BARIUM SUSPENSION 2.1% (VANILLA SILQ) 450 ML PO ONE; -CATHETER FLUSH 10 ML SYR IV PRN; -IOHEXOL 350 MG/ML 100 ML (OMNIPAQUE 350) VIAL IV ONE; -NS 250 ML (IVPB) BAG IV ONE
== END 2018-10-19 | disposition home or self-care (01) ==
LOC: ONC 09:27
PROVIDERS: ATTEND Internal Medicine Hematology & Oncology
DX: C67.8 Malignant neoplasm of overlapping sites of bladder (principal); C77.5 Secondary and unspecified malignant neoplasm of intrapelvic lymph nodes; M89.9 Disorder of bone, unspecified; F17.210 Nicotine dependence, cigarettes, uncomplicated; R91.8 Other nonspecific abnormal finding of lung field; Z45.2 Encounter for adjustment and management of vascular access device
CPT/HCPCS: 36591; 71260; 74177; 78306; 96523; 99213

== ENCOUNTER → 2019-01-19 | Outpatient (CLI) | payer MEDICARE ==
[~2019-01-19] MED LIST changes: +CATHETER FLUSH 10 ML SYR IV PRN
--- NOTE | 2019-01-19 13:40 | Diagnostic Imaging Report ---
PROCEDURE: CT chest with contrast, CT abdomen and pelvis with and without contrast. TECHNIQUE: Pre and post intravenous contrast axial imaging of the abdomen and pelvis and post contrast axial imaging of the chest were performed. Auto Exposure Controls were utilized during the CT exam to meet ALARA standards for radiation dose reduction. INDICATION: Bladder carcinoma. Correlation is made with prior CT study from 07/21/2018. CT CHEST: Right chest wall port remains in place with tip at the SVC right atrial junction. No axillary lymphadenopathy is detected. No mediastinal or hilar lymphadenopathy is detected. No pericardial or pleural fluid is identified. Tiny nodule right upper lobe previously described image 14 is stable. Tiny nodule right lower lobe adjacent to major fissure is also stable, image 38. There is some mild linear scarring or subsegmental atelectasis in the right lower lobe. No new parenchymal mass is seen. Bony structures are unremarkable. IMPRESSION: No evidence of thoracic lymphadenopathy. Tiny nodules in the right upper and right lower lobe are stable when compared with exam from 07/21/2018. CT ABDOMEN AND PELVIS: No discrete liver mass is seen. The gallbladder is unremarkable. No biliary duct dilatation is seen. The pancreas and spleen are unremarkable. No adrenal mass is detected. Bilateral renal cysts are again noted. There is a hyperdense lesion in the lower pole of the left kidney measuring approximately 10-11 mm. There is some questionable enhancement present. This lesion measures approximately 8 mm on prior study. Aorta is calcified but nonaneurysmal. No central retroperitoneal or mesenteric lymphadenopathy is seen. Ostomy in the right lower quadrant is again noted. Small and large bowel loops are normal caliber. There is no ascites. Bladder is surgically absent. There are surgical clips in left groin. No inguinal or iliac lymphadenopathy is seen. The bony structures are nonacute. IMPRESSION: 1. No evidence of abdominal or pelvic lymphadenopathy. There are postsurgical changes of cystectomy with ileal conduit in right lower quadrant ostomy. 2. Bilateral renal cysts. 3. There is an indeterminate rounded lesion in the lower pole of the left kidney measuring 10-11 mm in size which cannot be characterize as purely cystic. This may demonstrate some mild enhancement. A small renal cell carcinoma or potentially a urothelial cell neoplasm cannot be entirely excluded. No other significant abnormality is detected. Dictated by: Dictated on workstation # [id number]
--- NOTE | 2019-01-19 19:54 | Diagnostic Imaging Report ---
INDICATION: Bladder carcinoma. TECHNIQUE: The patient was administered 26.4 mCi technetium 99m MDP intravenously and whole body imaging was performed after a 3 hour delay. COMPARISON: Correlation is made with prior bone scan from 07/21/2018. FINDINGS: There is uptake of activity by the axial and appendicular skeleton. There is uptake by the kidneys. Patient does have an ileal conduit. Activity is seen in the right lower quadrant at the conduit and ostomy. No abnormal foci of tracer accumulation is seen to suggest osseous metastatic disease. IMPRESSION: No scintigraphic evidence of osseous metastatic disease. Dictated by: Dictated on workstation # [id number]
== END ==
LOC: CARD 10:43
PROVIDERS: ATTEND Internal Medicine Hematology & Oncology
DX: C77.2 Secondary and unspecified malignant neoplasm of intra-abdominal lymph nodes (principal); C67.8 Malignant neoplasm of overlapping sites of bladder; N28.1 Cyst of kidney, acquired
CPT/HCPCS: 71260; 74178; 78306

== ENCOUNTER 2019-01-26 10:33 | Outpatient (RCR) | payer MEDICARE ==
[2019-01-19 10:45] LABS: BASOPHILS % (AUTO) 0 % (0-10); EOSINOPHILS # (AUTO) 0.1 10^3/uL (0.0-0.3); EOSINOPHILS % (AUTO) 2 % (0-10); HEMATOCRIT 41 % (40-54); HEMOGLOBIN 13.7 G/DL (13.3-17.7); LYMPHOCYTES # (AUTO) 1.3 X 10^3 (1.0-4.0); LYMPHOCYTES % (AUTO) 18 % (12-44); MEAN CORPUSCULAR HEMOGLOBIN 31 PG (25-34); MEAN CORPUSCULAR HGB CONC 33 G/DL (32-36); MEAN CORPUSCULAR VOLUME 93 FL (80-99); MEAN PLATELET VOLUME 9.5 FL (7.4-10.4); MONOCYTES % (AUTO) 14 % (0-12); NEUTROPHILS # (AUTO) 4.8 X 10^3 (1.8-7.8); NEUTROPHILS % (AUTO) 66 % (42-75); PLATELET COUNT 197 10^3/uL (130-400); RED CELL DISTRIBUTION WIDTH 13.8 % (10.0-14.5); WHITE BLOOD COUNT 7.3 10^3/uL (4.3-11.0)
[2019-01-19 11:03] LABS: ALBUMIN 3.7 GM/DL (3.2-4.5); BILIRUBIN,TOTAL 0.6 MG/DL (0.1-1.0); CALCIUM 9.1 MG/DL (8.5-10.1); CREATININE SERUM 1.41 MG/DL (0.60-1.30); POTASSIUM 4.1 MMOL/L (3.6-5.0); TOTAL PROTEIN 6.5 GM/DL (6.4-8.2)
[~2019-01-26 10:33] MED LIST changes: -CATHETER FLUSH 10 ML SYR IV PRN
== END 2019-02-22 | disposition home or self-care (01) ==
LOC: ONC 10:33
PROVIDERS: ATTEND Internal Medicine Hematology & Oncology
DX: C67.8 Malignant neoplasm of overlapping sites of bladder (principal); C77.5 Secondary and unspecified malignant neoplasm of intrapelvic lymph nodes; M89.9 Disorder of bone, unspecified; F17.210 Nicotine dependence, cigarettes, uncomplicated; R91.8 Other nonspecific abnormal finding of lung field; Z45.2 Encounter for adjustment and management of vascular access device
CPT/HCPCS: 36415; 80053; 83615; 85025; 96523; 99213

== ENCOUNTER → 2019-05-12 | Outpatient (CLI) | payer MEDICARE ==
[2019-05-12 11:01] LABS: CALCIUM 9.3 MG/DL (8.5-10.1); CREATININE SERUM 1.53 MG/DL (0.60-1.30); POTASSIUM 4.3 MMOL/L (3.6-5.0)
== END ==
LOC: LAB 10:00
DX: C68.9 Malignant neoplasm of urinary organ, unspecified (principal); C65.2 Malignant neoplasm of left renal pelvis
CPT/HCPCS: 36415; 80048

== ENCOUNTER 2019-06-01 10:39 | Outpatient (RCR) | payer MEDICARE ==
[2019-06-01] MEDS ORDERED: ALTEPLASE 2 MG (CATHFLO) CANCER CENTER IV ONE (11:15)
[2019-06-01 12:00] LABS: BASOPHILS % (AUTO) 0 % (0-10); EOSINOPHILS # (AUTO) 0.2 10^3/uL (0.0-0.3); EOSINOPHILS % (AUTO) 2 % (0-10); HEMATOCRIT 39 % (40-54); HEMOGLOBIN 12.8 G/DL (13.3-17.7); LYMPHOCYTES # (AUTO) 1.4 X 10^3 (1.0-4.0); LYMPHOCYTES % (AUTO) 19 % (12-44); MEAN CORPUSCULAR HEMOGLOBIN 30 PG (25-34); MEAN CORPUSCULAR HGB CONC 33 G/DL (32-36); MEAN CORPUSCULAR VOLUME 92 FL (80-99); MEAN PLATELET VOLUME 9.3 FL (7.4-10.4); MONOCYTES # (AUTO) 0.9 X 10^3 (0.0-1.0); MONOCYTES % (AUTO) 12 % (0-12); NEUTROPHILS # (AUTO) 4.8 X 10^3 (1.8-7.8); NEUTROPHILS % (AUTO) 66 % (42-75); PLATELET COUNT 249 10^3/uL (130-400); RED CELL DISTRIBUTION WIDTH 14.1 % (10.0-14.5); WHITE BLOOD COUNT 7.3 10^3/uL (4.3-11.0)
[2019-06-01 12:29] LABS: ALBUMIN 3.8 GM/DL (3.2-4.5); BILIRUBIN,TOTAL 0.4 MG/DL (0.1-1.0); CALCIUM 8.9 MG/DL (8.5-10.1); CREATININE SERUM 1.37 MG/DL (0.60-1.30); POTASSIUM 4.1 MMOL/L (3.6-5.0); TOTAL PROTEIN 6.8 GM/DL (6.4-8.2)
== END 2019-07-03 | disposition home or self-care (01) ==
LOC: ONC 10:39
PROVIDERS: ATTEND Internal Medicine Hematology & Oncology
DX: C67.8 Malignant neoplasm of overlapping sites of bladder (principal); C77.5 Secondary and unspecified malignant neoplasm of intrapelvic lymph nodes; M89.9 Disorder of bone, unspecified; F17.210 Nicotine dependence, cigarettes, uncomplicated; R91.8 Other nonspecific abnormal finding of lung field
CPT/HCPCS: 36591; 36593; 80053; 83615; 85025; 99213

== ENCOUNTER → 2019-07-31 | Outpatient (CLI) | payer MEDICARE ==
[~2019-07-31] MED LIST changes: +BARIUM SUSPENSION 2.1% (VANILLA SILQ) 450 ML PO ONE; +HOLD METFORMIN - RECEIVED CONTRAST 20 ML VIAL IV SCH; +IOHEXOL 350 MG/ML 100 ML (OMNIPAQUE 350) VIAL IV ONE; +NS 100 ML (IVPB) BAG IV ONE
--- NOTE | 2019-07-31 10:29 | Diagnostic Imaging Report ---
EXAMINATION: CT Chest with intravenous contrast, CT Abdomen and Pelvis without and with intravenous contrast. TECHNIQUE: Pre and post intravenous contrast axial imaging of the abdomen and pelvis and post contrast axial imaging of the chest were performed. All CT scans use one or more of the following dose optimizing techniques: automated exposure control, MA and/or KvP adjustment based on a patient size and exam type, or iterative reconstruction. HISTORY: Bladder cancer FINDINGS: Comparison is 01/19/2019. The lungs are clear without edema or pneumonia. No pleural effusion or pneumothorax. No suspicious nodules. A few tiny fissural lymph nodes are present. Heart size is normal. No pericardial effusion. Aorta is normal in caliber. There is no axillary, supraclavicular or mediastinal lymphadenopathy. The liver is normal without focal lesion. No biliary ductal dilation. Gallbladder is normal. Pancreas, spleen and adrenal glands are normal. There are postsurgical changes of left nephrectomy. No evidence for local recurrence. Right-sided renal cysts are unchanged. No suspicious right-sided renal lesions are seen. Urinary bladder has been resected. There is a right lower quadrant ileal conduit with a parastomal fat-containing hernia. There is a small left inguinal hernia containing fat and surgical clips. There are no dilated loops of large or small bowel. No obstruction or inflammation. No free fluid or air. No abdominal or pelvic lymphadenopathy. Aorta is normal in caliber without aneurysm. There are no suspicious osseus lesions. IMPRESSION: 1. Status post cystectomy and left nephrectomy without evidence for local recurrence or metastatic disease. Dictated by: Dictated on workstation # [id number]
== END ==
LOC: RAD 08:51
PROVIDERS: ATTEND Internal Medicine Hematology & Oncology
DX: C77.2 Secondary and unspecified malignant neoplasm of intra-abdominal lymph nodes (principal); Z90.6 Acquired absence of other parts of urinary tract; Z90.5 Acquired absence of kidney; Z85.51 Personal history of malignant neoplasm of bladder
CPT/HCPCS: 71260; 74178

== ENCOUNTER 2019-10-05 10:40 | Outpatient (RCR) | payer MEDICARE ==
[2019-07-13 15:06] LABS: BASOPHILS % (AUTO) 0 % (0-10); EOSINOPHILS # (AUTO) 0.2 10^3/uL (0.0-0.3); EOSINOPHILS % (AUTO) 2 % (0-10); HEMATOCRIT 39 % (40-54); HEMOGLOBIN 12.9 G/DL (13.3-17.7); LYMPHOCYTES # (AUTO) 1.5 X 10^3 (1.0-4.0); LYMPHOCYTES % (AUTO) 18 % (12-44); MEAN CORPUSCULAR HEMOGLOBIN 31 PG (25-34); MEAN CORPUSCULAR HGB CONC 33 G/DL (32-36); MEAN CORPUSCULAR VOLUME 93 FL (80-99); MEAN PLATELET VOLUME 9.5 FL (7.4-10.4); MONOCYTES # (AUTO) 1.2 X 10^3 (0.0-1.0); MONOCYTES % (AUTO) 15 % (0-12); NEUTROPHILS # (AUTO) 5.4 X 10^3 (1.8-7.8); NEUTROPHILS % (AUTO) 65 % (42-75); PLATELET COUNT 220 10^3/uL (130-400); RED CELL DISTRIBUTION WIDTH 14.8 % (10.0-14.5); WHITE BLOOD COUNT 8.3 10^3/uL (4.3-11.0)
[2019-07-13 15:29] LABS: ALBUMIN 3.8 GM/DL (3.2-4.5); BILIRUBIN,TOTAL 0.4 MG/DL (0.1-1.0); CALCIUM 8.7 MG/DL (8.5-10.1); CREATININE SERUM 1.55 MG/DL (0.60-1.30); TOTAL PROTEIN 6.8 GM/DL (6.4-8.2)
[~2019-10-05 10:40] MED LIST changes: -BARIUM SUSPENSION 2.1% (VANILLA SILQ) 450 ML PO ONE; -HOLD METFORMIN - RECEIVED CONTRAST 20 ML VIAL IV SCH; -IOHEXOL 350 MG/ML 100 ML (OMNIPAQUE 350) VIAL IV ONE; -NS 100 ML (IVPB) BAG IV ONE; +NS IV 1000 ML (CANCER CTR) 1,000 ML ONE
== END 2019-10-11 | disposition home or self-care (01) ==
LOC: ONC 10:40
PROVIDERS: ATTEND Internal Medicine Hematology & Oncology
DX: C67.8 Malignant neoplasm of overlapping sites of bladder (principal); C77.5 Secondary and unspecified malignant neoplasm of intrapelvic lymph nodes; M89.9 Disorder of bone, unspecified; F17.210 Nicotine dependence, cigarettes, uncomplicated; R91.8 Other nonspecific abnormal finding of lung field
CPT/HCPCS: 36591; 80053; 83615; 85025; 96360; 96523

== ENCOUNTER → 2019-11-06 | Outpatient (CLI) | payer MEDICARE ==
[~2019-11-06] MED LIST changes: +BARIUM SUSPENSION 2.1% (VANILLA SILQ) 450 ML PO ONE; +CATHETER FLUSH 10 ML SYR IV PRN; +HOLD METFORMIN - RECEIVED CONTRAST 20 ML VIAL IV SCH; +IOHEXOL 350 MG/ML 100 ML (OMNIPAQUE 350) VIAL IV ONE; +NS 100 ML (IVPB) BAG IV ONE; -NS IV 1000 ML (CANCER CTR) 1,000 ML ONE; -TAMS0.4C98 PO; +TMSL.4C PO
--- NOTE | 2019-11-06 12:45 | Diagnostic Imaging Report ---
EXAMINATION: CT Chest, Abdomen and Pelvis with intravenous contrast. TECHNIQUE: Multiple contiguous axial images were obtained through the chest, abdomen and pelvis after the uneventful administration of intravenous contrast. All CT scans use one or more of the following dose optimizing techniques: automated exposure control, MA and/or KvP adjustment based on a patient size and exam type, or iterative reconstruction. HISTORY: BLADDER CANCER COMPARISON: 07/31/2019 FINDINGS: There is no edema or pneumonia. No pleural effusion. No pneumothorax. No suspicious nodules. Tiny right fissural nodule likely represents a lymph node and is unchanged along the minor fissure. There is mild atelectasis in the right lung base. Another fissural lymph node is seen inferiorly along the right major fissure and is unchanged. Heart size is normal. No pericardial effusion. Aorta is normal in caliber. There is no axillary or supraclavicular lymphadenopathy. There is no mediastinal lymphadenopathy. There are mild coronary artery calcifications. Right port catheter tip terminates in the superior vena cava. The liver is normal without focal lesion. There is no biliary ductal dilation. Gallbladder is normal. Pancreas is normal. Spleen is normal. Adrenal glands are normal. There is a large right renal cyst. No suspicious renal lesions are seen. There has been a left nephrectomy and cystectomy. An ileal conduit is present. There is a fat-containing parastomal hernia. There is no hydronephrosis. There are no dilated loops of large or small bowel. No obstruction or inflammation. No free fluid or air. No abdominal or pelvic lymphadenopathy. Aorta is normal in caliber without aneurysm. There are no suspicious osseous lesions. IMPRESSION: 1. Status post left nephrectomy and cystectomy with a local recurrence of metastatic disease. Dictated by: Dictated on workstation # [id number]
== END ==
LOC: RAD 11:40
PROVIDERS: ATTEND Internal Medicine Hematology & Oncology
DX: C67.8 Malignant neoplasm of overlapping sites of bladder (principal); C77.2 Secondary and unspecified malignant neoplasm of intra-abdominal lymph nodes; Z90.6 Acquired absence of other parts of urinary tract; Z90.5 Acquired absence of kidney
CPT/HCPCS: 71260; 74177

== ENCOUNTER 2020-01-25 08:59 | Outpatient (RCR) | payer MEDICARE ==
[2019-11-06 10:33] LABS: BASOPHILS % (AUTO) 0 % (0-10); EOSINOPHILS # (AUTO) 0.2 10^3/uL (0.0-0.3); EOSINOPHILS % (AUTO) 2 % (0-10); HEMATOCRIT 41 % (40-54); HEMOGLOBIN 13.8 G/DL (13.3-17.7); LYMPHOCYTES # (AUTO) 1.4 X 10^3 (1.0-4.0); LYMPHOCYTES % (AUTO) 18 % (12-44); MEAN CORPUSCULAR HEMOGLOBIN 32 PG (25-34); MEAN CORPUSCULAR HGB CONC 34 G/DL (32-36); MEAN CORPUSCULAR VOLUME 95 FL (80-99); MEAN PLATELET VOLUME 9.7 FL (7.4-10.4); MONOCYTES % (AUTO) 12 % (0-12); NEUTROPHILS # (AUTO) 5.6 X 10^3 (1.8-7.8); NEUTROPHILS % (AUTO) 68 % (42-75); PLATELET COUNT 215 10^3/uL (130-400); RED CELL DISTRIBUTION WIDTH 13.5 % (10.0-14.5); WHITE BLOOD COUNT 8.2 10^3/uL (4.3-11.0)
[2019-11-06 11:01] LABS: ALBUMIN 3.9 GM/DL (3.2-4.5); BILIRUBIN,TOTAL 0.5 MG/DL (0.1-1.0); CREATININE SERUM 1.44 MG/DL (0.60-1.30); POTASSIUM 4.2 MMOL/L (3.6-5.0); TOTAL PROTEIN 6.7 GM/DL (6.4-8.2)
[~2020-01-25 08:59] MED LIST changes: +ACHYD1T PO; -BARIUM SUSPENSION 2.1% (VANILLA SILQ) 450 ML PO ONE; -CATHETER FLUSH 10 ML SYR IV PRN; -HOLD METFORMIN - RECEIVED CONTRAST 20 ML VIAL IV SCH; -HYDR-3820 PO; -IOHEXOL 350 MG/ML 100 ML (OMNIPAQUE 350) VIAL IV ONE; -MAGN800O PO; +MOM10U PO; -NS 100 ML (IVPB) BAG IV ONE; +NS IV 1000 ML (CANCER CTR) 1,000 ML ONE
[2020-01-25 09:53] LABS: BASOPHILS % (AUTO) 0 % (0-10); EOSINOPHILS # (AUTO) 0.2 10^3/uL (0.0-0.3); EOSINOPHILS % (AUTO) 2 % (0-10); HEMATOCRIT 43 % (40-54); HEMOGLOBIN 14.6 G/DL (13.3-17.7); LYMPHOCYTES # (AUTO) 1.5 X 10^3 (1.0-4.0); LYMPHOCYTES % (AUTO) 20 % (12-44); MEAN CORPUSCULAR HEMOGLOBIN 32 PG (25-34); MEAN CORPUSCULAR HGB CONC 34 G/DL (32-36); MEAN CORPUSCULAR VOLUME 95 FL (80-99); MEAN PLATELET VOLUME 9.7 FL (7.4-10.4); MONOCYTES # (AUTO) 0.9 X 10^3 (0.0-1.0); MONOCYTES % (AUTO) 12 % (0-12); NEUTROPHILS # (AUTO) 4.8 X 10^3 (1.8-7.8); NEUTROPHILS % (AUTO) 66 % (42-75); PLATELET COUNT 236 10^3/uL (130-400); RED CELL DISTRIBUTION WIDTH 13.2 % (10.0-14.5); WHITE BLOOD COUNT 7.3 10^3/uL (4.3-11.0)
[2020-01-25 10:04] LABS: ALBUMIN 4.1 GM/DL (3.2-4.5); POTASSIUM 4.3 MMOL/L (3.6-5.0)
[2020-01-25 10:06] LABS: CALCIUM 9.1 MG/DL (8.5-10.1)
[2020-01-25 10:07] LABS: TOTAL PROTEIN 7.3 GM/DL (6.4-8.2)
[2020-01-25 10:09] LABS: BILIRUBIN,TOTAL 0.4 MG/DL (0.1-1.0)
[2020-01-25 10:10] LABS: CREATININE SERUM 1.51 MG/DL (0.60-1.30)
== END 2020-02-04 | disposition home or self-care (01) ==
LOC: ONC 08:59
PROVIDERS: ATTEND Internal Medicine Hematology & Oncology
DX: C67.8 Malignant neoplasm of overlapping sites of bladder (principal); C77.5 Secondary and unspecified malignant neoplasm of intrapelvic lymph nodes; M89.9 Disorder of bone, unspecified; F17.210 Nicotine dependence, cigarettes, uncomplicated; R91.8 Other nonspecific abnormal finding of lung field; Z45.2 Encounter for adjustment and management of vascular access device
CPT/HCPCS: 71260; 74177; 80053; 83615; 85025; 96360; 96523; 99213

== ENCOUNTER → 2020-05-20 | Outpatient (CLI) | payer MEDICARE ==
[~2020-05-20] MED LIST changes: +CATHETER FLUSH 10 ML SYR IV PRN; +HOLD METFORMIN - RECEIVED CONTRAST 20 ML VIAL IV SCH; +IOHEXOL 350 MG/ML 100 ML (OMNIPAQUE 350) VIAL IV ONE; +NS 100 ML (IVPB) BAG IV ONE; -NS IV 1000 ML (CANCER CTR) 1,000 ML ONE
--- NOTE | 2020-05-20 11:46 | Diagnostic Imaging Report ---
PROCEDURE: CT chest with contrast, CT abdomen and pelvis with and without contrast. TECHNIQUE: Pre and post intravenous contrast axial imaging of the abdomen and pelvis and post contrast axial imaging of the chest were performed. Auto Exposure Controls were utilized during the CT exam to meet ALARA standards for radiation dose reduction. INDICATION: Bladder cancer with metastases to lymph nodes. The study is performed for followup. Correlation is made with prior CT from 11/06/2019. CT CHEST: A right chest wall port has tip at the SVC right atrial junction. No axillary or supraclavicular lymphadenopathy is detected. No definite mediastinal or hilar lymphadenopathy is identified. No pericardial or pleural fluid is detected. Probable fissural lymph nodes in the right minor fissure as well as the right major fissure are unchanged. No parenchymal mass is detected. There are some linear areas of scarring or atelectasis in the right lower lobe and lingula. The bony structures are unremarkable. IMPRESSION: Stable CT chest since 11/06/2019. No thoracic lymphadenopathy or evidence of pulmonary metastatic disease is detected. CT ABDOMEN AND PELVIS: No discrete liver mass is detected. The gallbladder is unremarkable. No biliary ductal dilatation is identified. Pancreas and spleen are unremarkable. No adrenal mass is detected. Cyst upper pole right kidney measures 6.4 cm compared with 6.2 cm on prior. Postop changes left nephrectomy are noted. The left renal fossa is unremarkable. A patient has also undergone cystectomy. There are multiple surgical clips in the pelvis. There is an ileal conduit in the right lower quadrant. There is a fat-containing parastomal hernia. Bowel loops are normal caliber. There is diverticulosis of the descending and sigmoid colon but no evidence of acute diverticulitis. No free fluid identified. No definite central retroperitoneal or mesenteric lymphadenopathy is identified. No definite iliac or inguinal lymphadenopathy is seen. Bony structures are unremarkable. IMPRESSION: 1. Stable CT abdomen and pelvis since 11/06/2019. There are postop changes of left nephrectomy and cystectomy. No abdominal or pelvic lymphadenopathy or evidence of metastatic disease is detected. Dictated by: Dictated on workstation # [id number]
== END ==
LOC: RAD 11:01
PROVIDERS: ATTEND Nurse Practitioner Adult Health
DX: C67.8 Malignant neoplasm of overlapping sites of bladder (principal); C77.2 Secondary and unspecified malignant neoplasm of intra-abdominal lymph nodes; Z90.5 Acquired absence of kidney
CPT/HCPCS: 71260; 74178

== ENCOUNTER 2020-05-23 12:53 | Outpatient (RCR) | payer MEDICARE ==
[2020-05-20 10:07] LABS: BASOPHILS % (AUTO) 0 % (0-10); EOSINOPHILS # (AUTO) 0.1 10^3/uL (0.0-0.3); EOSINOPHILS % (AUTO) 1 % (0-10); HEMATOCRIT 41 % (40-54); HEMOGLOBIN 13.7 G/DL (13.3-17.7); LYMPHOCYTES # (AUTO) 1.1 X 10^3 (1.0-4.0); LYMPHOCYTES % (AUTO) 12 % (12-44); MEAN CORPUSCULAR HEMOGLOBIN 32 PG (25-34); MEAN CORPUSCULAR HGB CONC 34 G/DL (32-36); MEAN CORPUSCULAR VOLUME 95 FL (80-99); MEAN PLATELET VOLUME 9.4 FL (7.4-10.4); MONOCYTES # (AUTO) 1.1 X 10^3 (0.0-1.0); MONOCYTES % (AUTO) 12 % (0-12); NEUTROPHILS # (AUTO) 6.5 X 10^3 (1.8-7.8); NEUTROPHILS % (AUTO) 74 % (42-75); PLATELET COUNT 195 10^3/uL (130-400); RED CELL DISTRIBUTION WIDTH 14.3 % (10.0-14.5); WHITE BLOOD COUNT 8.8 10^3/uL (4.3-11.0)
[2020-05-20 10:29] LABS: ALBUMIN 3.7 GM/DL (3.2-4.5); BILIRUBIN,TOTAL 0.5 MG/DL (0.1-1.0); CALCIUM 8.6 MG/DL (8.5-10.1); CREATININE SERUM 1.37 MG/DL (0.60-1.30); POTASSIUM 4.1 MMOL/L (3.6-5.0); TOTAL PROTEIN 6.5 GM/DL (6.4-8.2)
[~2020-05-23 12:53] MED LIST changes: -CATHETER FLUSH 10 ML SYR IV PRN; -HOLD METFORMIN - RECEIVED CONTRAST 20 ML VIAL IV SCH; -IOHEXOL 350 MG/ML 100 ML (OMNIPAQUE 350) VIAL IV ONE; -NS 100 ML (IVPB) BAG IV ONE; +NS IV 1000 ML (CANCER CTR) 1,000 ML ONE
== END 2020-06-06 | disposition home or self-care (01) ==
LOC: ONC 12:53
PROVIDERS: ATTEND Internal Medicine Hematology & Oncology
DX: C67.8 Malignant neoplasm of overlapping sites of bladder (principal); C77.5 Secondary and unspecified malignant neoplasm of intrapelvic lymph nodes; M89.9 Disorder of bone, unspecified; F17.210 Nicotine dependence, cigarettes, uncomplicated; R91.8 Other nonspecific abnormal finding of lung field; Z45.2 Encounter for adjustment and management of vascular access device
CPT/HCPCS: 36591; 80053; 83615; 85025; 96360; 96361; 96523; 99213

== ENCOUNTER 2020-09-23 09:20 | Outpatient (RCR) | payer MEDICARE ==
[2020-08-12 10:12] LABS: BASOPHILS % (AUTO) 1 % (0-10); EOSINOPHILS # (AUTO) 0.1 10^3/uL (0.0-0.3); EOSINOPHILS % (AUTO) 2 % (0-10); HEMATOCRIT 40 % (40-54); HEMOGLOBIN 13.5 g/dL (13.3-17.7); LYMPHOCYTES # (AUTO) 1.3 10^3/uL (1.0-4.0); LYMPHOCYTES % (AUTO) 17 % (12-44); MEAN CORPUSCULAR HEMOGLOBIN 33 pg (25-34); MEAN CORPUSCULAR HGB CONC 34 g/dL (32-36); MEAN CORPUSCULAR VOLUME 96 fL (80-99); MEAN PLATELET VOLUME 9.8 fL (9.0-12.2); MONOCYTES # (AUTO) 0.8 10^3/uL (0.0-1.0); MONOCYTES % (AUTO) 11 % (0-12); NEUTROPHILS # (AUTO) 5.1 10^3/uL (1.8-7.8); NEUTROPHILS % (AUTO) 69 % (42-75); PLATELET COUNT 196 10^3/uL (130-400); WHITE BLOOD COUNT 7.4 10^3/uL (4.3-11.0)
[2020-08-12 10:32] LABS: ALBUMIN 3.9 GM/DL (3.2-4.5); BILIRUBIN,TOTAL 0.6 MG/DL (0.1-1.0); CALCIUM 8.8 MG/DL (8.5-10.1); CREATININE SERUM 1.41 MG/DL (0.60-1.30); POTASSIUM 4.2 MMOL/L (3.6-5.0); TOTAL PROTEIN 6.7 GM/DL (6.4-8.2)
[~2020-09-23 09:20] MED LIST changes: -NS IV 1000 ML (CANCER CTR) 1,000 ML ONE
== END 2020-09-29 | disposition home or self-care (01) ==
LOC: ONC 09:20
PROVIDERS: ATTEND Internal Medicine Hematology & Oncology
DX: Z45.2 Encounter for adjustment and management of vascular access device (principal); C67.8 Malignant neoplasm of overlapping sites of bladder; C77.5 Secondary and unspecified malignant neoplasm of intrapelvic lymph nodes; F17.210 Nicotine dependence, cigarettes, uncomplicated; R91.8 Other nonspecific abnormal finding of lung field; M89.9 Disorder of bone, unspecified
CPT/HCPCS: 36591; 80053; 83615; 85025; 96523

== ENCOUNTER → 2020-11-04 | Outpatient (CLI) | payer MEDICARE ==
--- NOTE | 2020-11-04 10:20 | Diagnostic Imaging Report ---
PROCEDURE: CT chest, abdomen, and pelvis without contrast. TECHNIQUE: Multiple contiguous axial images were obtained through the chest, abdomen, and pelvis without the use of intravenous contrast. Auto Exposure Controls were utilized during the CT exam to meet ALARA standards for radiation dose reduction. INDICATION: Bladder cancer with metastases. COMPARISON: Correlation is made with prior CT from 05/20/2020. FINDINGS: CT CHEST: Right chest wall port has the tip at the SVC-right atrial junction. No axillary lymphadenopathy is identified. No mediastinal or hilar lymphadenopathy is detected. There is no pericardial or pleural fluid. There is a tiny nodule in the posterior right lung apex, image 15 series 2, measuring 2 to 3 mm in size. This appears similar to prior exam. There is some linear scarring in the right upper lobe and right lower lobe. A tiny nodule in the right middle lobe is noted measuring 3 mm. No other nodules are identified. There are no infiltrates. IMPRESSION: Pulmonary micronodules, stable since 05/20/2020. No thoracic lymphadenopathy is detected. CT ABDOMEN AND PELVIS: No discrete liver mass is detected. Gallbladder is unremarkable. There is no biliary ductal dilatation. The pancreas and spleen are unremarkable. No adrenal mass is detected. The large cyst in the upper pole of the right kidney is stable at 6.4 cm. No calculi are detected. Left kidney is surgically absent. No definite evidence of recurrent or residual mass is identified. There is no central retroperitoneal or mesenteric lymphadenopathy. The right lower quadrant ostomy with associated fat-containing parastomal hernia is stable. There are postsurgical changes in the pelvis from cystectomy with multiple surgical clips. Pelvic sidewalls are unremarkable. No definite iliac or inguinal lymphadenopathy is seen. There is a fat-containing left inguinal hernia. There is no free fluid or fluid collection. There is diverticulosis of the sigmoid but no evidence of acute diverticulitis. Bony structures are unremarkable. IMPRESSION: Stable postoperative changes in the abdomen and pelvis when compared with exam from 05/20/2020. There is no evidence of abdominal or pelvic lymphadenopathy or metastatic disease. Uncomplicated diverticulosis is noted. Dictated by: Dictated on workstation # [id number]
== END ==
LOC: RAD 09:30
PROVIDERS: ATTEND Nurse Practitioner Adult Health
DX: Z01.89 Encounter for other specified special examinations (principal); C67.9 Malignant neoplasm of bladder, unspecified; K57.90 Diverticulosis of intestine, part unspecified, without perforation or abscess without bleeding; R91.8 Other nonspecific abnormal finding of lung field
CPT/HCPCS: 71250; 74176

== ENCOUNTER 2021-01-15 08:37 | Outpatient (RCR) | payer MEDICARE ==
[2020-11-04 09:31] LABS: BASOPHILS % (AUTO) 0 % (0-10); EOSINOPHILS # (AUTO) 0.1 10^3/uL (0.0-0.3); EOSINOPHILS % (AUTO) 2 % (0-10); HEMATOCRIT 42 % (40-54); HEMOGLOBIN 14.3 g/dL (13.3-17.7); LYMPHOCYTES # (AUTO) 1.3 10^3/uL (1.0-4.0); LYMPHOCYTES % (AUTO) 14 % (12-44); MEAN CORPUSCULAR HEMOGLOBIN 32 pg (25-34); MEAN CORPUSCULAR HGB CONC 34 g/dL (32-36); MEAN CORPUSCULAR VOLUME 96 fL (80-99); MEAN PLATELET VOLUME 9.5 fL (9.0-12.2); MONOCYTES % (AUTO) 11 % (0-12); NEUTROPHILS # (AUTO) 6.7 10^3/uL (1.8-7.8); NEUTROPHILS % (AUTO) 73 % (42-75); PLATELET COUNT 215 10^3/uL (130-400); WHITE BLOOD COUNT 9.2 10^3/uL (4.3-11.0)
[2020-11-04 09:55] LABS: ALBUMIN 3.9 GM/DL (3.2-4.5); BILIRUBIN,TOTAL 0.6 MG/DL (0.1-1.0); CALCIUM 8.8 MG/DL (8.5-10.1); CREATININE SERUM 1.52 MG/DL (0.60-1.30); TOTAL PROTEIN 7.2 GM/DL (6.4-8.2)
[2020-12-17 09:18] LABS: BASOPHILS % (AUTO) 0 % (0-10); EOSINOPHILS # (AUTO) 0.2 10^3/uL (0.0-0.3); EOSINOPHILS % (AUTO) 2 % (0-10); HEMATOCRIT 42 % (40-54); HEMOGLOBIN 14.3 g/dL (13.3-17.7); LYMPHOCYTES # (AUTO) 1.5 10^3/uL (1.0-4.0); LYMPHOCYTES % (AUTO) 16 % (12-44); MEAN CORPUSCULAR HEMOGLOBIN 32 pg (25-34); MEAN CORPUSCULAR HGB CONC 34 g/dL (32-36); MEAN CORPUSCULAR VOLUME 96 fL (80-99); MEAN PLATELET VOLUME 9.6 fL (9.0-12.2); MONOCYTES # (AUTO) 0.8 10^3/uL (0.0-1.0); MONOCYTES % (AUTO) 9 % (0-12); NEUTROPHILS # (AUTO) 6.8 10^3/uL (1.8-7.8); NEUTROPHILS % (AUTO) 73 % (42-75); PLATELET COUNT 217 10^3/uL (130-400); WHITE BLOOD COUNT 9.4 10^3/uL (4.3-11.0)
[2020-12-17 09:46] LABS: BILIRUBIN,TOTAL 0.4 MG/DL (0.1-1.0); CALCIUM 8.9 MG/DL (8.5-10.1); CREATININE SERUM 1.41 MG/DL (0.60-1.30); POTASSIUM 4.5 MMOL/L (3.6-5.0); TOTAL PROTEIN 7.1 GM/DL (6.4-8.2)
[~2021-01-15 08:37] MED LIST changes: -CIPR500T4 PO; +CIPR500T5 PO
[2021-01-15 09:08] LABS: BASOPHILS % (AUTO) 1 % (0-10); EOSINOPHILS # (AUTO) 0.1 10^3/uL (0.0-0.3); EOSINOPHILS % (AUTO) 1 % (0-10); HEMATOCRIT 43 % (40-54); HEMOGLOBIN 14.2 g/dL (13.3-17.7); LYMPHOCYTES # (AUTO) 1.3 10^3/uL (1.0-4.0); LYMPHOCYTES % (AUTO) 15 % (12-44); MEAN CORPUSCULAR HEMOGLOBIN 32 pg (25-34); MEAN CORPUSCULAR HGB CONC 33 g/dL (32-36); MEAN CORPUSCULAR VOLUME 96 fL (80-99); MEAN PLATELET VOLUME 9.7 fL (9.0-12.2); MONOCYTES % (AUTO) 11 % (0-12); NEUTROPHILS % (AUTO) 71 % (42-75); PLATELET COUNT 214 10^3/uL (130-400); WHITE BLOOD COUNT 8.5 10^3/uL (4.3-11.0)
[2021-01-15 09:26] LABS: ALBUMIN 3.8 GM/DL (3.2-4.5); BILIRUBIN,TOTAL 0.5 MG/DL (0.1-1.0); CALCIUM 8.8 MG/DL (8.5-10.1); CREATININE SERUM 1.42 MG/DL (0.60-1.30); POTASSIUM 4.4 MMOL/L (3.6-5.0); TOTAL PROTEIN 6.9 GM/DL (6.4-8.2)
== END 2021-02-02 | disposition home or self-care (01) ==
LOC: ONC 08:37
PROVIDERS: ATTEND Internal Medicine Hematology & Oncology
DX: Z45.2 Encounter for adjustment and management of vascular access device (principal); C67.8 Malignant neoplasm of overlapping sites of bladder; C77.2 Secondary and unspecified malignant neoplasm of intra-abdominal lymph nodes; M89.9 Disorder of bone, unspecified; R79.89 Other specified abnormal findings of blood chemistry; R91.8 Other nonspecific abnormal finding of lung field; F17.210 Nicotine dependence, cigarettes, uncomplicated
CPT/HCPCS: 36591; 80053; 83615; 85025

== ENCOUNTER → 2021-04-07 | Outpatient (CLI) | payer MEDICARE ==
--- NOTE | 2021-04-07 12:46 | Diagnostic Imaging Report ---
EXAMINATION: CT chest, abdomen and pelvis without intravenous contrast. TECHNIQUE: Multiple contiguous axial images were obtained through the chest, abdomen and pelvis without intravenous contrast. All CT scans use one or more of the following dose optimizing techniques: automated exposure control, MA and/or KvP adjustment based on patient size and exam type or iterative reconstruction. HISTORY: MALIGNANT NEOPLASM OF BLADDER COMPARISON: CT chest, abdomen and pelvis 10/25/2020 FINDINGS: Thyroid: The thyroid is normal. Mediastinum: Heart size is normal without significant pericardial effusion. The aorta is normal in caliber. No suspicious lymphadenopathy. Lungs and airways: The lungs are clear without consolidation, pleural effusion, or pneumothorax. Linear atelectasis or scarring within the lung bases. Calcified granuloma right upper lobe. No suspicious pulmonary lesion. The airways are normal. Solid organs: The liver is normal. The gallbladder is normal. There is no biliary ductal dilation. Pancreas is normal. Spleen is normal. Adrenal glands are normal. Stable right renal cyst which requires no followup. No hydronephrosis. The left kidney is surgically absent. Bowel: Surgical changes of the bowel without obstruction. There is a right lower quadrant ileal conduit. Scattered colonic diverticulosis. The appendix is normal. Peritoneum: There is no intraperitoneal free fluid or free air. No suspicious lymphadenopathy. Vasculature: Calcification of the aorta without aneurysm. Musculoskeletal: Degenerative changes of the spine without suspicious osseous lesion or compression fracture. Pelvis: The prostate gland and urinary bladder surgically absent. Numerous surgical clips along the iliac chain from prior lymph node dissection. No suspicious soft tissue lesion within the cystectomy bed. IMPRESSION: 1. No new findings of metastatic disease. 2. Colonic diverticulosis without findings of diverticulitis. Dictated by: Dictated on workstation # [id number]
== END ==
LOC: RAD 12:15
PROVIDERS: ATTEND Internal Medicine Hematology & Oncology
DX: K57.30 Diverticulosis of large intestine without perforation or abscess without bleeding (principal); Z85.51 Personal history of malignant neoplasm of bladder
CPT/HCPCS: 71250; 74176

== ENCOUNTER 2021-05-12 09:24 | Outpatient (RCR) | payer MEDICARE ==
[2021-04-07 10:02] LABS: BASOPHILS # (AUTO) 0.1 10^3/uL (0.0-0.1); BASOPHILS % (AUTO) 1 % (0-10); EOSINOPHILS # (AUTO) 0.1 10^3/uL (0.0-0.3); EOSINOPHILS % (AUTO) 2 % (0-10); HEMATOCRIT 42 % (40-54); HEMOGLOBIN 14.1 g/dL (13.3-17.7); LYMPHOCYTES # (AUTO) 1.4 10^3/uL (1.0-4.0); LYMPHOCYTES % (AUTO) 17 % (12-44); MEAN CORPUSCULAR HEMOGLOBIN 32 pg (25-34); MEAN CORPUSCULAR HGB CONC 34 g/dL (32-36); MEAN CORPUSCULAR VOLUME 96 fL (80-99); MEAN PLATELET VOLUME 9.3 fL (9.0-12.2); MONOCYTES # (AUTO) 0.9 10^3/uL (0.0-1.0); MONOCYTES % (AUTO) 11 % (0-12); NEUTROPHILS # (AUTO) 5.9 10^3/uL (1.8-7.8); NEUTROPHILS % (AUTO) 70 % (42-75); PLATELET COUNT 236 10^3/uL (130-400); WHITE BLOOD COUNT 8.4 10^3/uL (4.3-11.0)
[2021-04-07 10:22] LABS: ALBUMIN 3.7 GM/DL (3.2-4.5); BILIRUBIN,TOTAL 0.7 MG/DL (0.1-1.0); CALCIUM 9.1 MG/DL (8.5-10.1); CREATININE SERUM 1.37 MG/DL (0.60-1.30); POTASSIUM 4.1 MMOL/L (3.6-5.0); TOTAL PROTEIN 6.8 GM/DL (6.4-8.2)
[2021-05-12 09:41] LABS: BASOPHILS # (AUTO) 0.1 10^3/uL (0.0-0.1); BASOPHILS % (AUTO) 1 % (0-10); EOSINOPHILS # (AUTO) 0.1 10^3/uL (0.0-0.3); EOSINOPHILS % (AUTO) 2 % (0-10); HEMATOCRIT 43 % (40-54); HEMOGLOBIN 14.4 g/dL (13.3-17.7); LYMPHOCYTES # (AUTO) 1.3 10^3/uL (1.0-4.0); LYMPHOCYTES % (AUTO) 15 % (12-44); MEAN CORPUSCULAR HEMOGLOBIN 33 pg (25-34); MEAN CORPUSCULAR HGB CONC 34 g/dL (32-36); MEAN CORPUSCULAR VOLUME 97 fL (80-99); MEAN PLATELET VOLUME 9.5 fL (9.0-12.2); MONOCYTES # (AUTO) 0.9 10^3/uL (0.0-1.0); MONOCYTES % (AUTO) 10 % (0-12); NEUTROPHILS # (AUTO) 6.3 10^3/uL (1.8-7.8); NEUTROPHILS % (AUTO) 72 % (42-75); PLATELET COUNT 198 10^3/uL (130-400); WHITE BLOOD COUNT 8.8 10^3/uL (4.3-11.0)
[2021-05-12 10:02] LABS: ALBUMIN 3.7 GM/DL (3.2-4.5); BILIRUBIN,TOTAL 0.5 MG/DL (0.1-1.0); CALCIUM 8.7 MG/DL (8.5-10.1); CREATININE SERUM 1.62 MG/DL (0.60-1.30); POTASSIUM 4.3 MMOL/L (3.6-5.0)
== END 2021-05-27 | disposition home or self-care (01) ==
LOC: ONC 09:24
PROVIDERS: ATTEND Internal Medicine Hematology & Oncology
DX: Z45.2 Encounter for adjustment and management of vascular access device (principal); C67.8 Malignant neoplasm of overlapping sites of bladder; C77.2 Secondary and unspecified malignant neoplasm of intra-abdominal lymph nodes; N18.30 Chronic kidney disease, stage 3 unspecified; F17.210 Nicotine dependence, cigarettes, uncomplicated
CPT/HCPCS: 36591; 80053; 83615; 85025; 96523

== ENCOUNTER 2021-06-25 10:07 | Outpatient (CLI) | payer MEDICARE ==
[~2021-06-25] VITALS: Ht 182.9 cm; Wt 92.3 kg
== END 2021-06-25 12:11 | disposition home or self-care (01) ==
LOC: PREOP 10:07
PROVIDERS: ATTEND Surgery
DX: Z01.818 Encounter for other preprocedural examination (principal)
CPT/HCPCS: 87081

== ENCOUNTER 2021-06-26 07:29 | Day surgery (SDC) | payer MEDICARE ==
[~2021-06-26] VITALS: Ht 182.9 cm; Wt 92.3 kg
[2021-06-26 07:45] VITALS: BP 162/72
[2021-06-26] MEDS ORDERED: LACTATED RINGERS 1,000 ML IV PRN (07:45)
[2021-06-26] MEDS ORDERED: ceFAZolin 2 GM IV Premixed 50 ML IV ONE (07:45)
--- NOTE | 2021-06-26 07:59 | Progress Note-Pre Operative ---
Pre-Operative Progress Note H&P Reviewed The H&P was reviewed, patient examined and no changes noted. Date Seen by Provider: Jun 26, 2021 Time Seen by Provider: 07:59 Date H&P Reviewed: Jun 26, 2021 Time H&P Reviewed: 07:59 Pre-Operative Diagnosis: bladder cancer RACHELLE NAVARRO DO Jun 26, 2021 07:59
[2021-06-26] MEDS ORDERED: LIDOCAINE/EPI 1%-1:100,000 (XYLOCAINE) 20ML ONE (08:06)
[2021-06-26] MEDS ORDERED: MIDAZOLAM 2 MG/2 ML (VERSED) VIAL ONE (08:43)
[2021-06-26] MEDS ORDERED: PROPOFOL INJECTION 50 ML IV ONE (08:49)
[2021-06-26 09:23] VITALS: BP 113/88
--- NOTE | 2021-06-26 09:24 | Progress Note-Post Operative ---
Post-Operative Progess Note Surgeon (s)/Last Putter Away (s) Surgeon RACHELLE NAVARRO DO Last Putter Away: na Pre-Operative Diagnosis bladder cancer Post-Operative Diagnosis same Procedure & Operative Findings Date of Procedure 06/26/21 Procedure Performed/Findings PROCEDURE: Removal of port, COMPLICATIONS: None. INDICATIONS: The patient is a 71 year-old male who had a port previously placed. Patient is ok to have port removed. The patient was explained risk and benefits of the procedure and wished to proceed with procedure. Consent was signed on the chart. PROCEDURE: The patient was taken to the operating suite and was prepped and draped in sterile fashion. A surgical pause was performed. Local anesthetic was infiltrated to the area around the port. A number 15 blade scalpel was used to make an incision. Cautery was used to dissect down to the port which was then grasped and then dissected around. The catheter was removed in its entirety. The port was then able to be dissected out of the pocket and elevated. The wound was then irrigated with copious amounts of irrigation. Hemostasis had been achieved. The subcutaneous tissues were then reapproximated using 3-0 Vicryl. Skin was then closed using Skin Affix placed over the incision. The patient tolerated the procedure well without complication and was taken to recovery room in stable condition. Anesthesia Type Mac c local Estimated Blood Loss Estimated blood loss (mL): minimal Specimens/Packing Specimens Removed RACHELLE De La Rosa DO Jun 26, 2021 09:24
--- NOTE | 2021-06-26 09:29 | Discharge Inst-Simple/Standard ---
Discharge Inst-Standard Patient Instructions/Follow Up Plan of Care/Instructions/FU: 2 weeks Yani Activity as Tolerated: No Discharge Diet: Regular Diet Other Inst to Patient Follow up Appt: Make appointment for 2 week. Instructions: No lifting greater than 10 pounds. No strenuous activity. May shower in 24 hours, no tub bath or soaking. Use incentive spirometer at home as directed. No Smoking Skin/Wound Care: You have special glue over your incision that will fall off on it's own. Symptoms to Report: Appetite Changes, Extremity Discoloration, Numbness/Tingling, Swelling Increased, Bleeding Excessive, Eyesight Changes, Pain Increased, Urine Color Change, Constipation(Persistent), Fever over 101 degree F, Pain/Pressure in chest, Urinating Difficulty, Cough Up/Vomit Blood, Heart Beat Irreg/Pounding, Pain/Pressure in jaw, Vaginal Bleeding Increase, Cramps in feet or legs, Lightheadedness, Pain/Pressure in shoulder, Diarrhea(Persistent), Memory Changes Suddenly, Questions/Concerns, Weight gain consecutive days, Dizziness/Fainting, Nausea/Vomiting, Shortness of Breath, Weight gain over 2 pounds If questions or concerns contact your physician Or seek help at emergency department. RACHELLE NAVARRO DO Jun 26, 2021 09:29
[2021-06-26 09:30] VITALS: BP 135/74
[2021-06-26] MEDS ORDERED: morphine INJ 10 MG/ML 1ML (SYR OR VIAL) IVP ONE (09:30)
[2021-06-26 09:40] VITALS: BP_SYST 106; BP_SYST 132; BP_DIAS 76; BP_DIAS 81
[2021-06-26 10:10] VITALS: BP 168/72
--- NOTE | 2021-06-26 10:12 | Anesthesia-General Post-Op ---
MAC Patient Condition Mental Status/LOC: Same as Preop Cardiovascular: Satisfactory Nausea/Vomiting: Absent Respiratory: Satisfactory Pain: Controlled Complications: Absent Post Op Complications Complications None Follow Up Care/Instructions Patient Instructions None needed. Anesthesiology Discharge Order Discharge Order Patient is doing well, no complaints, stable vital signs, no apparent adverse anesthesia problems. No complications reported per nursing. CINDY VIERA CRNA Jun 26, 2021 10:12
== END 2021-06-26 10:10 | disposition home or self-care (01) ==
LOC: SDC 07:29
PROVIDERS: ATTEND Surgery
DX: Z45.2 Encounter for adjustment and management of vascular access device (principal); C67.9 Malignant neoplasm of bladder, unspecified; I10 Essential (primary) hypertension; M10.9 Gout, unspecified; Z90.5 Acquired absence of kidney; Z87.891 Personal history of nicotine dependence